=== PATIENT | female | born 1940 | race Caucasian/White ===

== ENCOUNTER → 2017-05-03 | Outpatient (CLI) | payer MEDICARE ==
--- NOTE | 2017-05-04 11:18 | ECHOF ---
Referral Reason:SOB R06.02 ,Cardiac murmur R01.1 MEASUREMENTS -------- HEIGHT: 157.5 cm WEIGHT: 61.2 kg BP: 152/66 RVIDd: 2.4 cm (< 3.3) IVSd: 1.2 cm (0.6 - 1.1) LVIDd: 4.4 cm (3.9 - 5.3) LVPWd: 1.2 cm (0.6 - 1.1) IVSs: 1.8 cm LVIDs: 3.1 cm LVPWs: 1.4 cm LA Diam: 3.5 cm (2.7 - 3.8) LAESV Index (A-L): 48.03 ml/m Ao Diam: 2.9 cm (2.0 - 3.7) AV Cusp: 2.0 cm (1.5 - 2.6) MV EXCURSION: 18.525 mm (> 18.000) MV EF SLOPE: 109 mm/s (70 - 150) EPSS: 0.8 cm MV E Loki: 1.62 m/s MV DecT: 175 ms MV A Loki: 0.91 m/s MV E/A Ratio: 1.77 AR PHT: 221 ms RAP: 5.00 mmHg RVSP: 56.37 mmHg FINDINGS -------- Sinus rhythm. This was a technically good study. The left ventricular size is normal. There is borderline concentric left ventricular hypertrophy. Overall left ventricular systolic function is normal with, an EF between 55 - 60 %. The right ventricle is normal in size. LA is severely dilated >40 ml/m2 The right atrium is normal in size. There is mild aortic valve sclerosis. There is moderate aortic regurgitation. The mitral valve leaflets are mildly thickened. Mild mitral annular calcification present. Severe mitral regurgitation is present. Mild tricuspid regurgitation present. There is severe pulmonary hypertension. The right ventricul ar systolic pressure, as measured by Doppler, is 56.37mmHg. Trace/mild (physiologic) pulmonic regurgitation. The aortic root size is normal. Normal inferior vena cava with normal inspiratory collapse consistent with estimated right atrial pre ssure of 5 mmHg. There is no pericardial effusion. CONCLUSIONS -------- 1. Sinus rhythm. 2. This was a technically good study. 3. The left ventricular size is normal. 4. There is borderline concentric left ventricular hypertrophy. 5. Overall left ventricular systolic function is normal with, an EF between 55 - 60 %. 6. The right ventricle is normal in size. 7. LA is severely dilated >40 ml/m2 8. The right atrium is normal in size. 9. There is mild aortic valve sclerosis. 10. There is moderate aortic regurgitation. 11. The mitral valve leaflets are mildly thickened. 12. Mild mitral annular calcification present. 13. Severe mitral regurgitation is present. 14. Mild tricuspid regurgitation present. 15. There is severe pulmonary hypertension. 16. The right ventricular systolic pressure, as measured by Doppler, is 56.37mmHg. 17. Trace/mild (physiologic) pulmonic regurgitation. 18. The aortic root size is normal. 19. Normal inferior vena cava with normal inspiratory collapse consistent with estimated right atrial pressure of 5 mmHg. 20. There is no pericardial effusion. CMO: Genna Vela RDCS
== END | disposition home or self-care (01) ==
LOC: RADECHMAIN 15:31
PROVIDERS: ATTEND Family Medicine
DX: I35.1 Nonrheumatic aortic (valve) insufficiency (principal); I34.0 Nonrheumatic mitral (valve) insufficiency; I07.1 Rheumatic tricuspid insufficiency; I27.20 Pulmonary hypertension, unspecified; I37.1 Nonrheumatic pulmonary valve insufficiency
CPT/HCPCS: 93306

== ENCOUNTER → 2017-05-04 | Outpatient (CLI) | payer MEDICARE ==
--- NOTE | 2017-05-04 15:57 | CT ---
EXAMINATION TYPE: CT chest wo con DATE OF EXAM: 05/04/2017 COMPARISON: NONE HISTORY: Shortness of breath x [address] DLP: 203.40 mGycm. Automated Exposure Control for Dose Reduction was Utilized. TECHNIQUE: CT scan of the thorax is performed without IV contrast. FINDINGS: Lack of intravenous contrast limits evaluation of the solid viscera and evaluation for medi astinal adenopathy. LUNGS: Moderate bilateral pleural effusions are seen, right slightly greater than left. Reticular lef t apical opacity and medial left upper lobe opacity likely relate to fibrosis. Pleural parenchymal sc arring is seen bilaterally. Mild centrilobular emphysematous changes are noted. Scattered areas of darnell bsegmental atelectasis are seen. Lingular scarring is noted. Focal pleural thickening along the left upper lobe on series 4 image 37 measures 1.3 cm and may be sequela of adjacent atelectasis. MEDIASTINUM: The right and left main pulmonary arteries are mildly enlarged measuring 2.5 cm, suggest ruby of underlying pulmonary arterial hypertension. Given the limitations of lack of intravenous contr ast there is no gross evidence of adenopathy although there are multiple nonenlarged mediastinal lymp h nodes present. Moderate three-vessel coronary artery calcifications are noted. There is mild cardio megaly. No pericardial effusion. Descending thoracic aorta is nonenlarged measuring 3.4 cm. OTHER: Mild multilevel degenerative changes of the thoracic spine are noted. IMPRESSION: 1. Moderate bilateral pleural effusions, right slightly greater than left as these are likely on the basis of congestive heart failure as the heart is mildly enlarged. 2. Left apical and medial upper lobe reticular opacities favored to represent a focal area of pulmona ry fibrosis/scarring, however pneumonitis of infectious or inflammatory etiology are also possible. 3. Enlargement of the right and left pulmonary arteries suggestive of underlying pulmonary arterial h ypertension. 4. Mild background centrilobular emphysematous changes.
== END | disposition home or self-care (01) ==
LOC: RADCTMAIN 15:30
PROVIDERS: ATTEND Family Medicine
DX: J90 Pleural effusion, not elsewhere classified (principal); R91.8 Other nonspecific abnormal finding of lung field; I51.7 Cardiomegaly; J43.9 Emphysema, unspecified; I77.89 Other specified disorders of arteries and arterioles; I28.8 Other diseases of pulmonary vessels
CPT/HCPCS: 71250

== ENCOUNTER 2017-05-31 10:57 | Day surgery (SDC) | payer MEDICARE ==
[2017-05-25 17:10] VITALS: BMI 23.8
[2017-05-31 11:48] LABS: Glucose,Whole Blood 135 mg/dL (75-99)
[2017-05-31 12:00] VITALS: RESP 20; TEMP 97.8
[2017-05-31] MEDS ORDERED: MIDAZOLAM 2 MG/2 ML VIAL ONE (12:08)
[2017-05-31] MEDS ORDERED: fentaNYL (PF) 50 MCG/ML 2 ML AMP ONE (12:08)
[2017-05-31] MEDS ORDERED: SODIUM CHLORIDE 0.9% 500 ML IV ONE (12:25)
[2017-05-31] MEDS: BENZOCAINE SPRAY 1 CAN MUCOUS MEM ONE ×2 (12:43→12:44)
[2017-05-31] MEDS ORDERED: fentaNYL (PF) 50 MCG/ML 2 ML AMP IVP ONE (12:44)
[2017-05-31] MEDS ORDERED: MIDAZOLAM 2 MG/2 ML VIAL IVP ONE ×2 (12:44)
--- NOTE | 2017-05-31 13:15 | ECHOT ---
TRANSESOPHAGEAL ECHOCARDIOGRAM DATE OF SERVICE: 05/31/2017. INDICATION: This is a pleasant 76-year-old female patient who sees Dr. Ramos in the office as an outpatient who was diagnosed with mitral regurgitation. The transesophageal echocardiogram is to evaluate the severity of the MR. COMPLICATION: None. LEVEL OF SEDATION: Moderate with sedation length of about 10 minutes. PROCEDURE DESCRIPTION: After obtaining an informed consent, explaining the procedure, benefits, risks, complications and alternatives, the patient was brought to the transesophageal echocardiogram suite. A pulse oximetry and heart rate monitors were attached to the patient prior to the procedure. The patient's throat was sprayed using lidocaine locally. Following that, the patient was turned into left lateral position. A bite guard was placed and the patient was then sedated with the above doses of Versed and fentanyl in divided doses. Following that, the transesophageal echocardiogram probe was advanced through the bite guard into the mid esophagus where 2-D echocardiogram images as well as color Doppler images of various cardiac structures were obtained. We evaluated the interatrial septum using 2-D echocardiogram, color Doppler, and contrast study. The procedure was completed. There were no complications. FINDINGS: The left ventricle appeared to be mildly dilated. Left ventricular systolic function is normal with EF around 50% to 55%. The right ventricle is of normal size and function. The left atrium is severely dilated. The left atrial appendage appeared to be free from any thrombus. The interatrial septum appeared to be intact without any evidence of shunt. The aortic valve is trileaflet valve with evidence of aortic regurgitation with central jet. The mitral valve is mildly thickened with evidence of severe mitral regurgitation also with a central jet. Normal tricuspid valve and pulmonic valve with only physiologic MR and physiologic . CONCLUSION: 1. Mildly dilated left ventricle with normal function with ejection fraction about 50% to 55%. 2. Severely dilated left atrium. 3. Severe mitral regurgitation. 4. Moderate aortic regurgitation. 5. Normal tricuspid valve and pulmonic valve. 6. Normal left atrial appendage. 7. Intact interatrial septum. 8. No evidence of pericardial effusion. MMODL / IJN: [id number] /
[2017-05-31 15:44] VITALS: BP 112/60; PULSE 70
== END 2017-05-31 15:00 | disposition home or self-care (01) ==
LOC: CATHCVL 10:57
PROVIDERS: ATTEND Internal Medicine Interventional Cardiology
DX: I08.0 Rheumatic disorders of both mitral and aortic valves (principal); I11.9 Hypertensive heart disease without heart failure; I27.20 Pulmonary hypertension, unspecified; I65.23 Occlusion and stenosis of bilateral carotid arteries; E11.9 Type 2 diabetes mellitus without complications; E78.5 Hyperlipidemia, unspecified; Z86.73 Personal history of transient ischemic attack (TIA), and cerebral infarction without residual deficits; Z85.3 Personal history of malignant neoplasm of breast; Z92.3 Personal history of irradiation; Z82.49 Family history of ischemic heart disease and other diseases of the circulatory system; Z79.84 Long term (current) use of oral hypoglycemic drugs; Z79.02 Long term (current) use of antithrombotics/antiplatelets; Z79.899 Other long term (current) drug therapy; Z88.2 Allergy status to sulfonamides; Z87.891 Personal history of nicotine dependence
CPT/HCPCS: 93312; 93320; 93325; J2250; J3010

== ENCOUNTER 2017-07-09 07:54 | Day surgery (SDC) | payer MEDICARE ==
[2017-07-05 12:46] VITALS: BMI 23.2
[~2017-07-09 07:54] MED LIST: ALPRAZolam 0.25 MG TAB PO PRN; ASPIRIN 325 MG TAB PO STA; SODIUM CHLORIDE 0.9% 1,000 ML in EMPTY BAG 1 BAG IV ONE
[2017-07-09 08:37] LABS: Basophils % (A) 0 %; Eosinophils # (A) 0.2 k/uL (0-0.7); Eosinophils % (A) 2 %; HCT 34.2 % (34.0-46.0); HGB 10.2 gm/dL (11.4-16.0); Hypochromasia Slight; Lymphocytes # (A) 2.2 k/uL (1.0-4.8); Lymphocytes % (A) 27 %; MCH 22.8 pg (25.0-35.0); MCHC 29.8 g/dL (31.0-37.0); MCV 76.8 fL (80.0-100.0); Mean Platelet Volume 6.8; Microcytosis Slight; Monocytes # (A) 0.6 k/uL (0-1.0); Monocytes % (A) 7 %; Neutrophils # (A) 5.1 k/uL (1.3-7.7); Neutrophils % (A) 62 %; Platelet Count 401 k/uL (150-450); RBC 4.45 m/uL (3.80-5.40); RDW 14.8 % (11.5-15.5); WBC 8.2 k/uL (3.8-10.6)
[2017-07-09 08:38] LABS: Glucose,Whole Blood 134 mg/dL (75-99)
[2017-07-09 08:57] LABS: Anion Gap 11 mmol/L; Blood Urea Nitrogen 30 mg/dL (7-17); Calcium 9.6 mg/dL (8.4-10.2); Carbon Dioxide 27 mmol/L (22-30); Chloride 106 mmol/L (98-107); Glucose 126 mg/dL (74-99); Potassium 4.3 mmol/L (3.5-5.1); Sodium 144 mmol/L (137-145)
[2017-07-09] MEDS ORDERED: LIDOCAINE 2% INJ 20 MG/ML (20 ML MDV) ONE (09:07)
[2017-07-09] MEDS ORDERED: MIDAZOLAM 2 MG/2 ML VIAL ONE (09:19)
[2017-07-09] MEDS ORDERED: fentaNYL (PF) 50 MCG/ML 2 ML AMP ONE (09:19)
[2017-07-09] MEDS ORDERED: MIDAZOLAM 2 MG/2 ML VIAL IVP ONE (09:25)
[2017-07-09] MEDS ORDERED: LIDOCAINE 2% INJ 20 MG/ML SQ ONE (09:28)
[2017-07-09] MEDS ORDERED: NITROGLYCERIN 1000MCG/10ML SYRINGE INTRAARTER ONE (09:50)
[2017-07-09 10:00] LABS: O2 Sat Blood Gas 70.8 %
[2017-07-09 10:01] LABS: O2 Sat Blood Gas 98.4 %
[2017-07-09 10:01] LABS: O2 Sat Blood Gas 72.3 %
[2017-07-09] MEDS ORDERED: NITROGLYCERIN OINT 1 INCH/GM PACKET TOPICAL ONE ×3 (10:01→10:02)
[2017-07-09] MEDS ORDERED: FUROSEMIDE 10 MG/ML 4 ML VIAL ONE (10:05)
[2017-07-09] MEDS ORDERED: FUROSEMIDE 10 MG/ML 4 ML VIAL IV ONE (10:05)
[2017-07-09] MEDS ORDERED: METOPROLOL TARTRATE 5 MG/5 ML VIAL IVP ONE ×2 (10:06→10:07)
[2017-07-09] MEDS ORDERED: IOHEXOL 350 MG/ML 125ML BOTTLE INJ ONE (10:14)
[2017-07-09] MEDS ORDERED: RX INFO: IV CONTRAST WAS GIVEN 1 EACH MISC MISCELLANE PRN (10:27)
[2017-07-09] MEDS ORDERED: ENALAPRILAT 1.25 MG/ML 1 ML VIAL ONE (10:33)
[2017-07-09] MEDS ORDERED: ENALAPRILAT 1.25 MG/ML 1 ML VIAL IVP STA (10:35)
[2017-07-09] MEDS: SODIUM CHLORIDE 0.9% 1,000 ML IV SCH (12:45)
--- NOTE | 2017-07-09 15:07 | P.GSCN ---
<Bernadette Cochran - Last Filed: 07/09/17 14:46> History of Present Illness Consult date: 07/09/17 Reason for Consult: Coronary artery disease, severe mitral regurgitation, surgical recommendations. 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 Graves has been followed by Dr. Fisher for severe mitral valve regurgitation. Apparently she has had increasing shortness of breath, even at rest but denies chest pain, syncope, claudication. She had transesophageal echocardiogram on 05/31/2017 which demonstrated normal LV function with an ejection fraction of 50-55%, severe mitral regurgitation, and moderate aortic regurgitation. She was recommended undergo heart catheterization which was completed this morning and which demonstrated severe multivessel coronary artery disease. Dr. Alvarez from cardiothoracic surgery was consulted regarding surgical recommendations. Review of Systems 14 point review systems was completed and was negative except as noted in the HPI. Past Medical History Past Medical History: Coronary Artery Disease (CAD), Cancer, CVA/TIA, Diabetes Mellitus, Hyperlipidemia, Hypertension Additional Past Medical History / Comment(s): shortness of breath,. hx: jerry breast cancer, lymphedema lt arm-. pt request rt arm to be used for blood draws and b/p monitoring History of Any Multi-Drug Resistant Organisms: None Reported Past Surgical History: Breast Surgery, Cholecystectomy Additional Past Surgical History / Comment(s): lt mastectomy with reconstruction with abdominal flap Past Anesthesia/Blood Transfusion Reactions: No Reported Reaction Past Psychological History: No Psychological Hx Reported Smoking Status: Former smoker Past Alcohol Use History: Occasional Additional Past Alcohol Use History / Comment(s): smoked 15 years 2 ppd quit 30 years ago Past Drug Use History: None Reported - Past Family History Father Family Medical History: Cancer Additional Family Medical History / Comment(s): colon cancer Daughter(s) Family Medical History: Cancer Additional Family Medical History / Comment(s): cervical cancer- Sister(s) Family Medical History: Coronary Artery Disease (CAD) Brother(s) Family Medical History: Coronary Artery Disease (CAD) Medications and Allergies Home Medications Medication Instructions Recorded Confirmed Type Losartan Potassium 100 mg PO DAILY 12/12/15 07/09/17 History metFORMIN HCL 1,000 mg PO BID 12/12/15 07/09/17 History Acetaminophen Tab [Tylenol] 650 mg PO Q4HR PRN #0 tab 12/18/15 07/05/17 Rx Clopidogrel [Plavix] 75 mg PO DAILY #30 tab 12/18/15 07/09/17 Rx Aspirin [Aspirin EC] 2 tab PO DAILY PRN 05/25/17 07/09/17 History Furosemide [Lasix] 40 mg PO DAILY 05/25/17 07/09/17 History Pravastatin Sodium [Pravachol] 10 mg PO HS 05/25/17 07/09/17 History Cholecalciferol (Vitamin D3) 2,000 unit PO DAILY 07/05/17 07/09/17 History [Vitamin D3] Co Q 10 (Unknown Dose) 1 tab PO DAILY 07/05/17 07/09/17 History Allergies Allergy/AdvReac Type Severity Reaction Status Date / Time Sulfa (Sulfonamide Allergy Unknown Verified 07/05/17 12:35 Antibiotics) lisinopril AdvReac Severe Swelling Verified 07/05/17 12:35 rosuvastatin [From Crestor] AdvReac Severe Unknown Verified 07/05/17 12:35 Surgical - Exam Vital Signs Temp Pulse Resp BP Pulse Ox 97.8 F 84 20 172/74 95 07/09/17 08:15 07/09/17 08:15 07/09/17 08:15 07/09/17 08:15 07/09/17 08:15 - General well developed, well nourished, no distress, no pain - Eyes PERRL, normal ocular movement - ENT no hearing loss, dentures - Neck no masses, no bruits, trachea midline - Respiratory Lungs sounds clear bilaterally. Respirations even, nonlabored. Currently on room air with oxygen saturation 95%. - Cardiovascular S1 and S2 present. Regular rate and rhythm, sinus rhythm on telemetry. Systolic murmur present. Palpable peripheral pulses bilaterally. No edema present. No varicosities noted. - Abdomen Abdomen: soft, non tender, bowel sounds - Genitourinary Deferred - Rectum Deferred - Integumentary Right groin cath site soft, nontender. no rash, no growths, no abnormal pigmentation - Neurologic normal coordination, normal sensation - Psychiatric oriented to time, oriented to person, oriented to place, speech is normal, memory intact Results - Labs 07/09/17 08:25 07/09/17 08:25 Abnormal Lab Results - Last 24 Hours (Table) 07/09/17 07/09/17 07/09/17 Range/Units 08:25 08:25 08:26 Hgb 10.2 L (11.4-16.0) gm/dL MCV 76.8 L (80.0-100.0) fL MCH 22.8 L (25.0-35.0) pg MCHC 29.8 L (31.0-37.0) g/dL BUN 30 H (7-17) mg/dL Glucose 126 H (74-99) mg/dL POC Glucose (mg/dL) 134 H (75-99) mg/dL Diabetes panel 07/09/17 Range/Units 08:25 Sodium 144 (137-145) mmol/L Potassium 4.3 (3.5-5.1) mmol/L Chloride 106 (98-107) mmol/L Carbon Dioxide 27 (22-30) mmol/L BUN 30 H (7-17) mg/dL Creatinine 0.82 (0.52-1.04) mg/dL Glucose 126 H (74-99) mg/dL Calcium 9.6 (8.4-10.2) mg/dL Calcium panel 07/09/17 Range/Units 08:25 Calcium 9.6 (8.4-10.2) mg/dL Pituitary panel 07/09/17 Range/Units 08:25 Sodium 144 (137-145) mmol/L Potassium 4.3 (3.5-5.1) mmol/L Chloride 106 (98-107) mmol/L Carbon Dioxide 27 (22-30) mmol/L BUN 30 H (7-17) mg/dL Creatinine 0.82 (0.52-1.04) mg/dL Glucose 126 H (74-99) mg/dL Calcium 9.6 (8.4-10.2) mg/dL Adrenal panel 07/09/17 Range/Units 08:25 Sodium 144 (137-145) mmol/L Potassium 4.3 (3.5-5.1) mmol/L Chloride 106 (98-107) mmol/L Carbon Dioxide 27 (22-30) mmol/L BUN 30 H (7-17) mg/dL Creatinine 0.82 (0.52-1.04) mg/dL Glucose 126 H (74-99) mg/dL Calcium 9.6 (8.4-10.2) mg/dL - Imaging Additional studies: Cardiac catheterization films and transesophageal echocardiogram were reviewed Assessment and Plan (1) Hypertension Current Visit: Yes Status: Chronic Code(s): I10 - ESSENTIAL (PRIMARY) HYPERTENSION SNOMED Code(s): 18022249 (2) Family history of early CAD Current Visit: Yes Status: Chronic Code(s): Z82.49 - FAMILY HX OF ISCHEM HEART DIS AND OTH DIS OF THE CIRC SYS SNOMED Code(s): 529213328 (3) History of breast cancer Current Visit: No Status: Resolved Code(s): Z85.3 - PERSONAL HISTORY OF MALIGNANT NEOPLASM OF BREAST SNOMED Code(s): 737001082 (4) Tobacco dependence in remission Current Visit: No Status: Resolved Code(s): F17.201 - NICOTINE DEPENDENCE, UNSPECIFIED, IN REMISSION SNOMED Code(s): 946525164 (5) Severe mitral regurgitation Current Visit: Yes Status: Chronic Code(s): I34.0 - NONRHEUMATIC MITRAL ( VALVE) INSUFFICIENCY SNOMED Code(s): 81595581 (6) Carotid stenosis Current Visit: Yes Status: Chronic Code(s): I65.29 - OCCLUSION AND STENOSIS OF UNSPECIFIED CAROTID ARTERY SNOMED Code(s): 29527874 (7) Dyslipidemia Current Visit: Yes Status: Chronic Code(s): E78.5 - HYPERLIPIDEMIA, UNSPECIFIED SNOMED Code(s): 738286002 Plan: Patient was seen and examined at the bedside. Chart /diagnostics reviewed. Cardiac catheterization films and transesophageal echocardiogram films were reviewed with Dr. Alvarez. Preoperative testing initiated. Carotid duplex completed at Dr. Benson's office reviewed, demonstrates right ICA stenosis of 50-79% and left ICA stenosis of 16-49%. Preoperative teaching initiated. All questions answered. Once preoperative testing completed we will review, and discuss timing of surgery with the patient and her family. The plan will be for mitral valve repair, possible replacement with coronary artery bypass 3-4 vessels. Patient will need to be off Plavix for 5 days prior to surgery. This was discussed with the patient and her , and they are in agreement. Thank you Dr. Velazco for this consult. We look forward to working with you in the care of your patient. Time with Patient: Greater than 30 <Alexandra Alvarez - Last Filed: 07/09/17 16:25> Surgical - Exam Vital Signs Temp Pulse Resp BP Pulse Ox 97.8 F 84 20 172/74 95 07/09/17 08:15 07/09/17 08:15 07/09/17 08:15 07/09/17 08:15 07/09/17 08:15 Results - Labs 07/09/17 08:25 07/09/17 08:25 Abnormal Lab Results - Last 24 Hours (Table) 07/09/17 07/09/17 07/09/17 Range/Units 08:25 08:25 08:26 Hgb 10.2 L (11.4-16.0) gm/dL MCV 76.8 L (80.0-100.0) fL MCH 22.8 L (25.0-35.0) pg MCHC 29.8 L (31.0-37.0) g/dL BUN 30 H (7-17) mg/dL Glucose 126 H (74-99) mg/dL POC Glucose (mg/dL) 134 H (75-99) mg/dL Diabetes panel 07/09/17 Range/Units 08:25 Sodium 144 (137-145) mmol/L Potassium 4.3 (3.5-5.1) mmol/L Chloride 106 (98-107) mmol/L Carbon Dioxide 27 (22-30) mmol/L BUN 30 H (7-17) mg/dL Creatinine 0.82 (0.52-1.04) mg/dL Glucose 126 H (74-99) mg/dL Calcium 9.6 (8.4-10.2) mg/dL Calcium panel 07/09/17 Range/Units 08:25 Calcium 9.6 (8.4-10.2) mg/dL Pituitary panel 07/09/17 Range/Units 08:25 Sodium 144 (137-145) mmol/L Potassium 4.3 (3.5-5.1) mmol/L Chloride 106 (98-107) mmol/L Carbon Dioxide 27 (22-30) mmol/L BUN 30 H (7-17) mg/dL Creatinine 0.82 (0.52-1.04) mg/dL Glucose 126 H (74-99) mg/dL Calcium 9.6 (8.4-10.2) mg/dL Adrenal panel 07/09/17 Range/Units 08:25 Sodium 144 (137-145) mmol/L Potassium 4.3 (3.5-5.1) mmol/L Chloride 106 (98-107) mmol/L Carbon Dioxide 27 (22-30) mmol/L BUN 30 H (7-17) mg/dL Creatinine 0.82 (0.52-1.04) mg/dL Glucose 126 H (74-99) mg/dL Calcium 9.6 (8.4-10.2) mg/dL Assessment and Plan Plan: Patient seen and examined. Cath, KRISTINA and prior CT Chest reviewed. Patient S/P radiation to chest for bilateral breast CA with oneal encompassing the mediastinum judging from the skin tattoo. She has partially calcified ascending aorta and very calcified proximal coronaries. She might also have some post- radiation RADHA changes. I am not sure if her mitral valve disease is radiation induced. I believe the aorta is clampable despite the ascending aortic calcifications however patient is certainly at higher risk in view of potential heart and lung radiation induced diseases and changes. ALEXANDRA ALVAREZ MD
[2017-07-09 16:37] LABS: Glucose,Whole Blood 108 mg/dL (75-99)
[2017-07-09] MEDS ORDERED: ASPIRIN 325 MG TAB PO PRN (18:19)
[2017-07-09] MEDS ORDERED: ACETAMINOPHEN TAB 325 MG TAB PO PRN (18:19)
[2017-07-09 19:33] LABS: INR 1.1 (<1.2); Prothrombin Time 10.6 sec (9.0-12.0)
[2017-07-09 20:59] LABS: Glucose,Whole Blood 223 mg/dL (75-99)
[2017-07-09] MEDS ORDERED: PRAVASTATIN SODIUM 20 MG TAB PO SCH (21:00)
[2017-07-09 23:41] LABS: Appearance,Urine Cloudy (Clear); Bacteria,Urine Rare /hpf; Bilirubin,Urine Negative (Negative); Blood,Urine Moderate (Negative); Color,Urine Light Yellow; Glucose,Urine (UA) Negative (Negative); Ketones,Urine Negative (Negative); Leukocyte Esterase,Urine Large (Negative); Mucus,Urine Rare /hpf; PH, Urine 5.5 (5.0-8.0); Protein,Urine 1+ (Negative); RBC,Urine 162 /hpf (0-5); Specific Gravity,Urine 1.023 (1.001-1.035); Squamous Epithelial Cell,Urine 2 /hpf (0-4); Urobilinogen,Urine <2.0 mg/dL (<2.0); WBC,Urine 82 /hpf (0-5)
[2017-07-10] MEDS: SODIUM CHLORIDE 0.9% 1,000 ML IV SCH ×2 (01:49→13:58)
[2017-07-10 02:07] LABS: Hepatitis A Antibody IgM Non-Reactive (Non-Reactive); Hepatitis B Core IgM Non-Reactive (Non-Reactive)
[2017-07-10 05:56] LABS: Basophils % (A) 0 %; Eosinophils # (A) 0.2 k/uL (0-0.7); Eosinophils % (A) 3 %; HCT 31.3 % (34.0-46.0); Hypochromasia Slight; Lymphocytes % (A) 29 %; MCH 23.8 pg (25.0-35.0); MCHC 31.9 g/dL (31.0-37.0); MCV 74.8 fL (80.0-100.0); Mean Platelet Volume 6.7; Microcytosis Slight; Monocytes # (A) 0.4 k/uL (0-1.0); Monocytes % (A) 6 %; Neutrophils % (A) 60 %; Platelet Count 382 k/uL (150-450); RBC 4.18 m/uL (3.80-5.40); RDW 14.9 % (11.5-15.5); WBC 6.7 k/uL (3.8-10.6)
[2017-07-10 06:00] LABS: Hemoglobin A1C 7.6 % (4.0-6.0)
[2017-07-10 06:07] LABS: Glucose,Whole Blood 136 mg/dL (75-99)
[2017-07-10 06:22] LABS: ALT 25 U/L (9-52); AST 20 U/L (14-36); Albumin 3.5 g/dL (3.5-5.0); Alkaline Phosphatase 22 U/L (38-126); Anion Gap 9 mmol/L; Blood Urea Nitrogen 27 mg/dL (7-17); Calcium 9.3 mg/dL (8.4-10.2); Carbon Dioxide 27 mmol/L (22-30); Chloride 103 mmol/L (98-107); Glucose 112 mg/dL (74-99); Potassium 3.9 mmol/L (3.5-5.1); Sodium 139 mmol/L (137-145); Total Bilirubin 0.5 mg/dL (0.2-1.3)
--- NOTE | 2017-07-10 07:22 | XR ---
EXAMINATION TYPE: XR chest 2V DATE OF EXAM: 07/10/2017 COMPARISON: 12/16/2015 TECHNIQUE: PA and lateral views submitted. HISTORY: Preop FINDINGS: The lungs are clear and there is no pneumothorax, pleural effusion, or focal pneumonia. Hyperinflati on compatible COPD. Prominence of the pulmonary arteries likely the basis of pulmonary arterial hyper tension. Surgical clips overlying right chest. Atherosclerotic change aorta. Degenerative changes spi ne. Coarsened interstitium. IMPRESSION: 1. No acute process. Stable mild prominence of interstitium was may reflect underlying mild chronic i nterstitial lung disease.
[2017-07-10] MEDS ORDERED: FUROSEMIDE 40 MG TAB PO SCH (09:00)
[2017-07-10] MEDS ORDERED: CO Q PO SCH (09:00)
[2017-07-10] MEDS ORDERED: LOSARTAN 50 MG TAB PO SCH (09:00)
[2017-07-10] MEDS ORDERED: ASPIRIN 325 MG TAB PO SCH (09:00)
[2017-07-10] MEDS ORDERED: CHOLECALCIFEROL 1,000 UNIT TAB PO SCH (09:00)
[2017-07-10 10:06] VITALS: TEMP 97.4
--- NOTE | 2017-07-10 11:39 | P.CNPUL ---
History of Present Illness Consult date: 07/10/17 Chief complaint: Preop pulmonary evaluation, mitral regurgitation History of present illness: A very pleasant 76-year-old female patient with known known history of lung disease such as asthma or emphysema or pulmonary fibrosis, a nonsmoker, was being considered for valvular heart surgery and for that reason a homemaker consultation was requested. The patient has history of exertional dyspnea. A KRISTINA was done on 05/31/2017 and showed normal LV function and ejection fraction of 50-55% along with severe mitral regurgitation, moderate aortic regurgitation. A cardiac catheterization was done and showed also multivessel coronary artery disease. The patient was seen by cardiothoracic surgery and the plan is to undergo a valve replacement and bypass surgery sometime next week. The patient was on Plavix and Plavix was taken off and this will be done on an elective basis. Patient is doing well. A bedside spirometry was done and the patient's FEV1 is no other of 97% of predicted. Room air pulse ox is above 97%. The patient has had previous radiation therapy to her progress regarding history of breast cancer. A CAT scan of the chest was obtained on and this was a CTA scan of the chest without contrast and it showed moderate bilateral pleural effusion related to her history of CHF and valvular heart disease. The left apical area was showing some limited fibrosis and the patient had enlargement of the pulmonary artery suggestive underlying pulmonary artery of hypertension. Overall performance status is good. Exertional dyspnea is related to valvular heart disease. Hemoglobin stable at 10.0. Concern of an underlying urine checked infection based on the abnormal UA however the patient is symptomatically and we have made recommendations to repeat the urinalysis. She is afebrile for now. Review of Systems Constitutional: Denies chills, Denies fever Eyes: denies blurred vision, denies bulging eye, denies decreased vision Ears: deny: decreased hearing, ear discharge, earache Ears, nose, mouth and throat: Denies headache, Denies sore throat Cardiovascular: Reports decreased exercise tolerance, Reports dyspnea on exertion Respiratory: Reports dyspnea Gastrointestinal: Denies abdominal pain, Denies diarrhea, Denies nausea, Denies vomiting Genitourinary: Denies dysuria, Denies hematuria Musculoskeletal: Denies myalgias Musculoskeletal: absent: ankle pain, ankle stiffness, ankle swelling Integumentary: Denies pruritus, Denies rash Neurological: Denies numbness, Denies weakness Psychiatric: Denies anxiety, Denies depression Endocrine: Denies fatigue, Denies weight change Past Medical History Past Medical History: Coronary Artery Disease (CAD), Cancer, CVA/TIA, Diabetes Mellitus, Hyperlipidemia, Hypertension Additional Past Medical History / Comment(s): Coronary artery disease, mitral valve regurgitation, diabetes mellitus, previous history of TIA, hypertension, hyperlipidemia, lymphedema of the left upper extremity related to a previous breast surgery, breast cancer with lt mastectomies History of Any Multi-Drug Resistant Organisms: None Reported Past Surgical History: Breast Surgery, Cholecystectomy Additional Past Surgical History / Comment(s): lt mastectomy with reconstruction with abdominal flap Past Anesthesia/Blood Transfusion Reactions: No Reported Reaction Past Psychological History: No Psychological Hx Reported Smoking Status: Former smoker Past Alcohol Use History: Occasional Additional Past Alcohol Use History / Comment(s): smoked 15 years 2 ppd quit 30 years ago Past Drug Use History: None Reported - Past Family History Father Family Medical History: Cancer Additional Family Medical History / Comment(s): colon cancer Daughter(s) Family Medical History: Cancer Additional Family Medical History / Comment(s): cervical cancer- Sister(s) Family Medical History: Coronary Artery Disease (CAD) Brother(s) Family Medical History: Coronary Artery Disease (CAD) Medications and Allergies Home Medications Medication Instructions Recorded Confirmed Type Losartan Potassium 100 mg PO DAILY 12/12/15 07/09/17 History metFORMIN HCL 1,000 mg PO BID 12/12/15 07/09/17 History Acetaminophen Tab [Tylenol] 650 mg PO Q4HR PRN #0 tab 12/18/15 07/05/17 Rx Clopidogrel [Plavix] 75 mg PO DAILY #30 tab 12/18/15 07/09/17 Rx Aspirin [Aspirin EC] 2 tab PO DAILY PRN 05/25/17 07/09/17 History Furosemide [Lasix] 40 mg PO DAILY 05/25/17 07/09/17 History Pravastatin Sodium [Pravachol] 10 mg PO HS 05/25/17 07/09/17 History Cholecalciferol (Vitamin D3) 2,000 unit PO DAILY 07/05/17 07/09/17 History [Vitamin D3] Co Q 10 (Unknown Dose) 1 tab PO DAILY 07/05/17 07/09/17 History Allergies Allergy/AdvReac Type Severity Reaction Status Date / Time Sulfa (Sulfonamide Allergy Unknown Verified 07/05/17 12:35 Antibiotics) lisinopril AdvReac Severe Swelling Verified 07/05/17 12:35 rosuvastatin [From Crestor] AdvReac Severe Unknown Verified 07/05/17 12:35 Physical Exam Vitals: Vital Signs Temp Pulse Pulse Resp BP Pulse Ox 07/10/17 08:00 97.4 F L 70 17 108/52 97 07/10/17 04:00 72 16 135/64 98 07/10/17 00:00 97.2 F L 64 16 130/59 98 07/09/17 20:00 97.2 F L 64 16 164/71 98 07/09/17 15:41 63 16 07/09/17 15:32 97.3 F L 63 16 153/63 95 07/09/17 14:12 59 L 120/57 07/09/17 13:12 63 135/63 07/09/17 12:12 129/61 07/09/17 11:50 16 07/09/17 11:42 98.2 F 62 16 140/64 95 Intake and Output 07/09/17 07/10/17 07/10/17 22:59 06:59 14:59 Intake Total 280 Output Total 300 Balance -300 280 Intake: Oral 280 Output: Urine 300 Other: # Voids 1 1 Weight 54.7 kg - General well developed, well nourished, no distress, no pain - Eyes PERRL, normal ocular movement - ENT no hearing loss, dentures - Neck no masses, no bruits, trachea midline - Respiratory Lungs sounds clear bilaterally. Respirations even, nonlabored. Currently on room air with oxygen saturation 95%. - Cardiovascular S1 and S2 present. Regular rate and rhythm, sinus rhythm on telemetry. Systolic murmur present. Palpable peripheral pulses bilaterally. No edema present. No varicosities noted. - Abdomen Abdomen: soft, non tender, bowel sounds - Genitourinary Deferred - Rectum Deferred - Integumentary Right groin cath site soft, nontender. no rash, no growths, no abnormal pigmentation - Neurologic normal coordination, normal sensation - Psychiatric oriented to time, oriented to person, oriented to place, speech is normal, memory intact Results - Laboratory Findings CBC and BMP: 07/10/17 05:26 03/06/18 05:26 PT/INR, D-dimer PT 10.6 sec (9.0-12.0) 07/09/17 18:37 INR 1.1 (<1.2) 07/09/17 18:37 Abnormal lab findings: Abnormal Labs 07/09/17 07/09/17 07/09/17 08:25 08:25 08:26 Hgb 10.2 L Hct MCV 76.8 L MCH 22.8 L MCHC 29.8 L BUN 30 H Glucose 126 H POC Glucose (mg/dL) 134 H Hemoglobin A1c Alkaline Phosphatase Total Protein HDL Cholesterol Urine Appearance Urine Protein Urine Blood Urine Nitrite Ur Leukocyte Esterase Urine RBC Urine WBC Urine WBC Clumps Urine Bacteria Urine Mucus 07/09/17 07/09/17 07/09/17 16:33 18:37 18:37 Hgb Hct MCV MCH MCHC BUN Glucose POC Glucose (mg/dL) 108 H Hemoglobin A1c 7.6 H Alkaline Phosphatase Total Protein HDL Cholesterol 38 L Urine Appearance Urine Protein Urine Blood Urine Nitrite Ur Leukocyte Esterase Urine RBC Urine WBC Urine WBC Clumps Urine Bacteria Urine Mucus 07/09/17 07/09/17 07/10/17 20:50 23:25 05:26 Hgb Hct MCV MCH MCHC BUN 27 H Glucose 112 H POC Glucose (mg/dL) 223 H Hemoglobin A1c Alkaline Phosphatase 22 L Total Protein 6.0 L HDL Cholesterol Urine Appearance Cloudy H Urine Protein 1+ H Urine Blood Moderate H Urine Nitrite Positive H Ur Leukocyte Esterase Large H Urine RBC 162 H Urine WBC 82 H Urine WBC Clumps Occasional H Urine Bacteria Rare H Urine Mucus Rare H 07/10/17 07/10/17 05:26 06:05 Hgb 10.0 L Hct 31.3 L MCV 74.8 L MCH 23.8 L MCHC BUN Glucose POC Glucose (mg/dL) 136 H Hemoglobin A1c Alkaline Phosphatase Total Protein HDL Cholesterol Urine Appearance Urine Protein Urine Blood Urine Nitrite Ur Leukocyte Esterase Urine RBC Urine WBC Urine WBC Clumps Urine Bacteria Urine Mucus - Diagnostic Findings Chest x-ray: image reviewed Assessment and Plan Plan: Assessment 1 severe mitral regurgitation along with multivessel coronary artery disease, awaiting valvular replacement/repair and coronary artery bypass surgery. This will be done elective patient as the patient is currently off Plavix 2 chronic exertional dyspnea secondary to above 3 breast cancer with previous left mastectomy followed by radiation therapy and the patient is a lymphedema involving left upper extremity 4 diabetes mellitus 5 hypertension 6 hyperlipidemia 7 remote history of smoking quit more than 30 years ago 8 suspected pulmonary arterial hypertension probably later to her underlying valvular heart disease Carotid artery stenosis as the patient has a 57 9% stenosis involving the right internal carotid artery and 16-49% stenosis on the left. Plan No pulmonary contraindication for the surgery to be undertaken. Do not foresee any major pulmonary complications specially the patient's spirometry is within normal limits. Chest x-ray showing some interstitial edema related to CHF and valvular heart disease. There may be an underlying pulmonary arterial hypertension addition related to the valvular heart disease. Encourage use of incentive spirometer. Will be involved in the patient's care and attempt to any pulmonary needs in with diminished mechanical ventilator. We'll continue to follow.
[2017-07-10 12:14] VITALS: BP 136/63; PULSE 62; RESP 18
--- NOTE | 2017-07-10 15:37 | P.PN ---
Subjective Progress Note Date: 07/10/17 Discharge note This is a pleasant 76-year-old female with severe mitral regurgitation , symptomatic, known carotid atherosclerosis status post left carotid endarterectomy, prior CVA, diabetes, hypertension, or Motrin tobacco use, hyperlipidemia, family history of premature coronary artery disease, breast cancer with history of prior radiotherapy, chronic kidney disease stage III who was admitted to the hospital to undergo cardiac catheterization, cardiac catheterization was performed by Dr. Velazco yesterday and revealed diffuse disease in the left main, 90% RCA, 100% circumflex, 60% proximal LAD with a questionable diagonal lesion, ejection fraction 50%. Cardiothoracic surgery was consulted to see the patient, plan is for mitral valve repair, possible replacement, and coronary artery bypass of 3-4 vessels. Patient will need to be off of her Plavix for 5 days prior to surgery. Patient was seen and examined this morning, denies any chest pain, her breathing overall has been stable. Blood pressure 132/63 with a heart rate in the 60s, she is afebrile, 94 % on room air. White blood cell count 6.7, hemoglobin 10.0, sodium 139, potassium 3.9, BUN 27, creatinine 0.9. Magnesium 1.9, positive UTI. Will add a small dose of beta renetta to her medication regime and increase her statin to 20 mg. She may be able to be discharged home today. Objective - Vital Signs Vital signs: Vital Signs Temp 97.4 F L 07/10/17 08:00 Pulse 62 07/10/17 12:00 Resp 18 07/10/17 12:00 BP 136/63 07/10/17 12:00 Pulse Ox 94 L 07/10/17 12:00 Intake & Output 07/09/17 07/10/17 07/10/17 18:59 06:59 18:59 Intake Total 565 500 Output Total 400 Balance 165 500 Weight 57.606 kg 54.7 kg Intake: IV 250 Intake, IV Titration 75 Amount Sodium Chloride 0.9% 1, 75 000 ml @ 75 mls/hr IV . [id number] [facility] Rx#:[id number] Oral 240 500 Output: Urine 400 Other: # Voids 2 1 1 - Exam PHYSICAL EXAMINATION: HEENT: Head is atraumatic, normocephalic. Pupils equal, round. Neck is supple. There is no elevated jugular venous pressure. HEART EXAMINATION: Heart S1 S2 1 holosystolic murmur is heard. CHEST EXAMINATION:[ Lungs reveal decreased air exchange throughout ABDOMEN: Soft, nontender. Bowel sounds are heard. No organomegaly noted. Right groin soft no evidence of any hematoma. EXTREMITIES: 2+ peripheral pulses with no evidence of peripheral edema and no calf tenderness noted. NEUROLOGIC patient is awake, alert and oriented -3. . - Labs CBC & Chem 7: 07/10/17 05:26 07/10/17 05:26 Labs: Abnormal Lab Results - Last 24 Hours (Table) 07/09/17 07/09/17 07/09/17 Range/Units 16:33 18:37 18:37 Hgb (11.4-16.0) gm/dL Hct (34.0-46.0) % MCV (80.0-100.0) fL MCH (25.0-35.0) pg BUN (7-17) mg/dL Glucose (74-99) mg/dL POC Glucose (mg/dL) 108 H (75-99) mg/dL Hemoglobin A1c 7.6 H (4.0-6.0) % Alkaline Phosphatase (38-126) U/L Total Protein (6.3-8.2) g/dL HDL Cholesterol 38 L (40-60) mg/dL Urine Appearance (Clear) Urine Protein (Negative) Urine Blood (Negative) Urine Nitrite (Negative) Ur Leukocyte Esterase (Negative) Urine RBC (0-5) /hpf Urine WBC (0-5) /hpf Urine WBC Clumps (None) /hpf Urine Bacteria (None) /hpf Urine Mucus (None) /hpf 07/09/17 07/09/17 07/10/17 Range/Units 20:50 23:25 05:26 Hgb (11.4-16.0) gm/dL Hct (34.0-46.0) % MCV (80.0-100.0) fL MCH (25.0-35.0) pg BUN 27 H (7-17) mg/dL Glucose 112 H (74-99) mg/dL POC Glucose (mg/dL) 223 H (75-99) mg/dL Hemoglobin A1c (4.0-6.0) % Alkaline Phosphatase 22 L (38-126) U/L Total Protein 6.0 L (6.3-8.2) g/dL HDL Cholesterol (40-60) mg/dL Urine Appearance Cloudy H (Clear) Urine Protein 1+ H (Negative) Urine Blood Moderate H (Negative) Urine Nitrite Positive H (Negative) Ur Leukocyte Esterase Large H (Negative) Urine RBC 162 H (0-5) /hpf Urine WBC 82 H (0-5) /hpf Urine WBC Clumps Occasional H (None) /hpf Urine Bacteria Rare H (None) /hpf Urine Mucus Rare H (None) /hpf 07/10/17 07/10/17 Range/Units 05:26 06:05 Hgb 10.0 L (11.4-16.0) gm/dL Hct 31.3 L (34.0-46.0) % MCV 74.8 L (80.0-100.0) fL MCH 23.8 L (25.0-35.0) pg BUN (7-17) mg/dL Glucose (74-99) mg/dL POC Glucose (mg/dL) 136 H (75-99) mg/dL Hemoglobin A1c (4.0-6.0) % Alkaline Phosphatase (38-126) U/L Total Protein (6.3-8.2) g/dL HDL Cholesterol (40-60) mg/dL Urine Appearance (Clear) Urine Protein (Negative) Urine Blood (Negative) Urine Nitrite (Negative) Ur Leukocyte Esterase (Negative) Urine RBC (0-5) /hpf Urine WBC (0-5) /hpf Urine WBC Clumps (None) /hpf Urine Bacteria (None) /hpf Urine Mucus (None) /hpf Microbiology - Last 24 Hours (Table) 07/09/17 18:00 Urine Culture - Preliminary Urine,Ureter Assessment and Plan Plan: Assessment 1 severe mitral regurgitation along with multivessel coronary artery disease, awaiting valvular replacement/repair and coronary artery bypass surgery. This will be done elective patient as the patient is currently off Plavix 2 chronic exertional dyspnea secondary to above 3 breast cancer with previous left mastectomy followed by radiation therapy and the patient is a lymphedema involving left upper extremity 4 diabetes mellitus 5 hypertension 6 hyperlipidemia 7 remote history of smoking quit more than 30 years ago 8 suspected pulmonary arterial hypertension probably later to her underlying valvular heart disease 9 Carotid artery stenosis as the patient has a 57 9% stenosis involving the right internal carotid artery and 16-49% stenosis on the left. We will start the patient on a low-dose beta renetta. Increase statin to 20 mg daily. She may be able to be discharged home today from cardiology's perspective. Surgery will be scheduled as an outpatient, she will require being off of her Plavix for a minimum of 5 days. We will continue aspirin 325 mg daily, Lasix 40 mg daily, Cozaar 100 mg daily, increase pravastatin to 20 mg daily, add Lopressor 25 mg daily to her medication regime. Discharged home with sublingual nitroglycerin. We will also treat the patient with Cipro for her UTI. DNP note has been reviewed, I agree with a documented findings and plan of care. Patient was seen and examined.
[2017-07-10] MEDS ORDERED: METOPROLOL SUCCINATE (ER) 25 MG TAB.ER.24H PO SCH (15:45)
[2017-07-10] MEDS ORDERED: CIPROFLOXACIN HCL 250 MG TAB PO SCH (21:00)
[2017-07-10] MEDS ORDERED: PRAVASTATIN SODIUM 20 MG TAB PO SCH (21:00)
--- NOTE | 2017-07-11 17:25 | P.PCN ---
Date of Procedure: 07/09/17 Preoperative Diagnosis: Severe mitral regurgitation, CHF and possible CAD Postoperative Diagnosis: Severe mitral regurgitation, severe triple-vessel disease Procedure(s) Performed: Right and left heart catheterization Description of Procedure: HISTORY: This is a 76-year-old female with history of previous TIA, peripheral vascular disease and symptoms of shortness of breath and CHF. Echocardiogram and KRISTINA showed evidence of severe mitral regurgitation. Patient is advised to have a right and left heart catheterization to assess mitral regurgitation and to rule out underlying ischemic heart disease. CONSENT:I have discussed the risks, benefits and alternative therapies for the above-mentioned procedure and for both sedation/analgesia as well as necessary blood product administration, if indicated, as they pertain to this patient. The patient has indicated understanding and acceptance of the risks and procedures discussed. PROCEDURE: Patient was brought to the lab in a fasting state. Patient was given conscious sedation. She was prepped and draped in the usual fashion . Right heart catheterization. The right groin is infiltrated with lidocaine and right femoral vein was entered using Seldinger technique. A 7-Bolivian catheter was left in place and right heart catheterization was performed using Mitchell-Radha catheter. Patient tolerated the procedure well. Hemostasis was obtained at the end of the procedure with manual compression. Left heart catheterization: The right femoral artery was entered using Seldinger technique. A 6-Bolivian sheath was left in place and selective coronary arteriography and left ventriculography was performed. Patient tolerated the procedure well. Femoral angiogram was performed and manual compression was applied for hemostasis. No immediate complications were noted and patient was transferred to [facility] in a stable condition Conscious Sedation: Versed 1 mg Fentanyl 25g Duration 47minutes HEMODYNAMICS: Right heart catheterization: The right atrial pressure was 3. Right ventricle pressure was 35 over 4. Pulmonary artery pressure was 35/12. Pulmonary wedge pressure was about 10. However, at the end of the procedure the pulmonary wedge pressure went up to 25-30 with big V waves. SELECTIVE CORONARY ARTERIOGRAPHY: LEFT MAIN: Short and calcified and seems to be diffusely diseased with at least 50-60% stenosis which may be eccentric THE LEFT ANTERIOR DESCENDING CORONARY ARTERY: This is a small-caliber vessel giving rise to small caliber diagonal branch. At the origin of the diagonal and septal branches. There appears to be 50-60% lesion involving the LAD extending into the ostium of the diagonal. THE LEFT CIRCUMFLEX AND IS CORONARY ARTERY: This is small in caliber with a faint flow and diffusely diseased vessel. THE RIGHT CORONARY ARTERY: This is a small to moderate caliber vessel with diffuse disease and calcification. There is a 95% stenosis in the midportion. The distal vessel is a diffusedly diseased LEFT VENTRICULOGRAPHY: . This revealed dilated left ventricle [moderately] with hypokinesis of the inferobasal segment and severe mitral regurgitation FINAL IMPRESSION: Severe mitral regurgitation with diffuse triple-vessel disease with a critical lesion in the mid RCA and probably significant disease involving left main and circumflex PLAN: Triple-vessel bypass surgery with mitral valve repair or replacement PROGNOSIS: Guarded
== END 2017-07-10 16:32 | disposition home or self-care (01) ==
LOC: CATHCVL 07:54 → 6SEL 10:15 → CATHCVL 07-10 16:32
PROVIDERS: ATTEND Internal Medicine Cardiovascular Disease
DX: R06.00 Dyspnea, unspecified (principal); I34.0 Nonrheumatic mitral (valve) insufficiency; I25.10 Atherosclerotic heart disease of native coronary artery without angina pectoris; I25.84 Coronary atherosclerosis due to calcified coronary lesion; Z87.891 Personal history of nicotine dependence; E78.5 Hyperlipidemia, unspecified; E11.22 Type 2 diabetes mellitus with diabetic chronic kidney disease; I13.0 Hypertensive heart and chronic kidney disease with heart failure and stage 1 through stage 4 chronic kidney disease, or unspecified chronic kidney disease; N18.3 Chronic kidney disease, stage 3 (moderate); Z79.84 Long term (current) use of oral hypoglycemic drugs; I50.9 Heart failure, unspecified; Z90.12 Acquired absence of left breast and nipple; Z86.73 Personal history of transient ischemic attack (TIA), and cerebral infarction without residual deficits; Z82.49 Family history of ischemic heart disease and other diseases of the circulatory system; Z87.09 Personal history of other diseases of the respiratory system; Z85.3 Personal history of malignant neoplasm of breast; Z92.3 Personal history of irradiation; I97.2 Postmastectomy lymphedema syndrome; Z79.02 Long term (current) use of antithrombotics/antiplatelets; Z79.899 Other long term (current) drug therapy; Z88.2 Allergy status to sulfonamides; Z88.8 Allergy status to other drugs, medicaments and biological substances
CPT/HCPCS: 94150; 93460; 80061; 80053; 80048; 80074; 85018; 84443; 82810; 83735; 85025 ×2; 85610; 85730; 81001; 87070; 87086 ×2; 87077 ×2; 87186 ×2; 83036; 71046; 93970; C1894 ×2; C1769; J2001; J2250; J1940; Q9967

== ENCOUNTER → 2017-07-18 | Outpatient (CLI) | payer MEDICARE ==
[2017-07-18 11:52] LABS: Appearance,Urine Clear (Clear); Bilirubin,Urine Negative (Negative); Blood,Urine Small (Negative); Color,Urine Light Yellow; Glucose,Urine (UA) Negative (Negative); Ketones,Urine Negative (Negative); Leukocyte Esterase,Urine Small (Negative); Mucus,Urine Rare /hpf; Nitrite,Urine Negative (Negative); Protein,Urine Negative (Negative); RBC,Urine 12 /hpf (0-5); Specific Gravity,Urine 1.009 (1.001-1.035); Squamous Epithelial Cell,Urine 1 /hpf (0-4); Urobilinogen,Urine <2.0 mg/dL (<2.0); WBC,Urine 8 /hpf (0-5)
[2017-07-18 11:57] LABS: HCT 37.5 % (34.0-46.0); HGB 11.5 gm/dL (11.4-16.0); Hypochromasia Slight; MCH 23.4 pg (25.0-35.0); MCHC 30.7 g/dL (31.0-37.0); MCV 76.4 fL (80.0-100.0); Mean Platelet Volume 6.4; Microcytosis Slight; Platelet Count 411 k/uL (150-450); RBC 4.92 m/uL (3.80-5.40); RDW 15.1 % (11.5-15.5); WBC 8.9 k/uL (3.8-10.6)
[2017-07-18 12:08] LABS: Calcium 9.7 mg/dL (8.4-10.2); Potassium 4.6 mmol/L (3.5-5.1)
== END | disposition home or self-care (01) ==
LOC: LABPAT 07:24
PROVIDERS: ATTEND Surgery
DX: I25.10 Atherosclerotic heart disease of native coronary artery without angina pectoris (principal); Z95.2 Presence of prosthetic heart valve
CPT/HCPCS: 36415; 80048; 81001; 83880; 85027; 86850; 86870; 86880; 86900; 86901; 86920; 87086

== ENCOUNTER → 2017-09-19 | Outpatient (CLI) | payer MEDICARE ==
--- NOTE | 2017-09-19 15:45 | XR ---
2 view abdomen HISTORY: Generalized abdomen pain and hematuria 2 views of the abdomen submitted. No comparisons Postop changes are noted to the heart, there is increased attenuation at the left lung base with obsc ured left hemidiaphragm and blunted left costophrenic angle. There is a mild spinal curvature with de generative disc changes in the visualized spine. No evident pneumoperitoneum or bowel obstruction, th ere are air-filled loops of small bowel present with air fluid levels. No evident calcification. IMPRESSION: There may be underlying ileus or enteritis, follow-up as indicated if obstruction is susp ected clinically. Left lower lobe atelectasis and associated effusion, postop changes. Additional fin dings above.
== END | disposition home or self-care (01) ==
LOC: RADXRYALE 10:07
PROVIDERS: ATTEND Physician Assistant Medical
DX: R10.84 Generalized abdominal pain (principal); Z98.890 Other specified postprocedural states
CPT/HCPCS: 74019

== ENCOUNTER → 2017-10-04 | Outpatient (CLI) | payer MEDICARE ==
--- NOTE | 2017-10-05 09:09 | XR ---
EXAMINATION TYPE: XR chest 2V DATE OF EXAM: 10/04/2017 COMPARISON: Prior chest 08/02/2017 HISTORY: Abnormal chest x-ray, pleural effusion TECHNIQUE: Frontal and lateral views of the chest are obtained. FINDINGS: Increased density at the left lung base obscures the heart border and left hemidiaphragm, there is blunting of the costophrenic angle. No evident pneumothorax. Patient is post median sternoto my, atrial appendage clipping, mitral valve replacement. Heart size within normal limits. Pulmonary v ascularity and camacho within normal limits. IMPRESSION: Left pleural effusion and associated atelectasis, correlate to exclude pneumonia.
== END | disposition home or self-care (01) ==
LOC: RADXRYALE 16:11
PROVIDERS: ATTEND Family Medicine
DX: J90 Pleural effusion, not elsewhere classified (principal); J98.11 Atelectasis
CPT/HCPCS: 71046

== ENCOUNTER → 2018-01-14 | Outpatient (CLI) | payer MEDICARE ==
--- NOTE | 2018-01-14 11:55 | MM ---
Reason for exam: additional evaluation requested from prior study. History: Patient has history of breast cancer at age 51. Family history of breast cancer in sister at age 50. Lumpectomy of the right breast, 2011. Radiation therapy of the right breast, 2011. Implant in the left breast, 1991. Mastectomy of the left breast, 1991. Radiation therapy of the left breast, 1991. Chemotherapy. Took antineoplastic for 10 years beginning at age 51. Took other hormone beginning at age 71. Physical Findings: Nurse did not find any significant physical abnormalities on exam. MG 3D Diag Mammo W/Cad RT CC and MLO view(s) were taken of the right breast. The breast tissue is heterogeneously dense. This may lower the sensitivity of mammography. There is no discrete abnormality. Changes on lumpectoy and radiation therapy. These results were verbally communicated with the patient and result sheet given to the patient on 01/14/18. ASSESSMENT: Benign, BI-RAD 2 RECOMMENDATION: Follow-up diagnostic mammogram of the right breast in 1 year.
== END | disposition home or self-care (01) ==
LOC: RADMAMWWP 09:56
PROVIDERS: ATTEND Internal Medicine Hematology & Oncology
DX: Z08 Encounter for follow-up examination after completed treatment for malignant neoplasm (principal); Z85.3 Personal history of malignant neoplasm of breast
CPT/HCPCS: 77065; G0279; 77061

== ENCOUNTER 2018-02-05 15:44 | Inpatient (IN) | payer MEDICARE ==
[2018-02-05] MEDS ORDERED: SODIUM CHLORIDE 0.9% 1,000 ML IV STA (16:21)
[2018-02-05] MEDS ORDERED: SODIUM CHLORIDE 0.9% 500 ML 500 ML IV STA (16:21)
--- NOTE | 2018-02-05 16:27 | ED ---
Weakness HPI - General Chief complaint: Weakness Stated complaint: abnormal labs/poss UTI Time Seen by Provider: 02/05/18 16:00 Source: patient, RN notes reviewed Mode of arrival: ambulatory Limitations: no limitations - History of Present Illness Initial comments: This is a 77-year-old female history of anemia who is required to iron infusions recently history of bypass surgery and valve surgery's test year who complains today of weakness is getting worse slight weight loss feels lightheaded and dizzy when she tries to walk no nausea vomiting fevers chills or sweats he apparently was recently diagnosed with UTI. Dilation no other modifying factors or complaints at this time MD Complaint: generalized weakness - Related Data Home Medications Medication Instructions Recorded Confirmed Cholecalciferol (Vitamin D3) 2,000 unit PO DAILY 07/05/17 02/05/18 [Vitamin D3] Clopidogrel [Plavix] 75 mg PO DAILY 01/21/18 02/05/18 Ferrous Sulfate [Iron] 325 mg PO DAILY 01/21/18 02/05/18 Spironolactone [Aldactone] 25 mg PO DAILY 01/21/18 02/05/18 Acetaminophen [Tylenol] 1,000 mg PO Q4-6H PRN 02/05/18 02/05/18 Carvedilol [Coreg] 3.125 mg PO DAILY 02/05/18 02/05/18 Losartan/Hydrochlorothiazide 1 tab PO DAILY 02/05/18 02/05/18 [Losartan-Hctz 50-12.5 mg Tab] Pravastatin Sodium [Pravachol] 30 mg PO DAILY 02/05/18 02/05/18 metFORMIN HCL [Glucophage] 1,000 mg PO BID 02/05/18 02/05/18 Allergies Allergy/AdvReac Type Severity Reaction Status Date / Time lisinopril Allergy Severe Swelling Verified 02/05/18 16:39 rosuvastatin [From Crestor] AdvReac Severe muscle Verified 02/05/18 16:39 cramping/jt pain Sulfa (Sulfonamide AdvReac headache Verified 02/05/18 16:39 Antibiotics) Review of Systems ROS Statement: Those systems with pertinent positive or pertinent negative responses have been documented in the HPI. ROS Other: All systems not noted in ROS Statement are negative. Past Medical History Past Medical History: Coronary Artery Disease (CAD), Cancer, CVA/TIA, Diabetes Mellitus, Hyperlipidemia, Hypertension Additional Past Medical History / Comment(s): Coronary artery disease, Hx TIA, hypertension, hyperlipidemia, lymphedema of the left upper extremity related to a previous breast surgery, Bilateral breast cancer with lt mastectomy., Radiation Right Breast., low iron- has received iron transfusions., pt had CABG with repair of Mitral Valve (July 2017). History of Any Multi-Drug Resistant Organisms: None Reported Past Surgical History: Breast Surgery, Cholecystectomy, Coronary Bypass/CABG Additional Past Surgical History / Comment(s): lt mastectomy with reconstruction with abdominal flap, carotid endarterectomy, Triple CABG with repair Mitral Valve (July 2017) Past Anesthesia/Blood Transfusion Reactions: No Reported Reaction Additional Past Anesthesia/Blood Transfusion Reaction / Comment(s): . Past Psychological History: No Psychological Hx Reported Smoking Status: Former smoker Past Alcohol Use History: Occasional Past Drug Use History: None Reported - Past Family History Father Family Medical History: Cancer Additional Family Medical History / Comment(s): colon cancer Daughter(s) Family Medical History: Cancer Additional Family Medical History / Comment(s): ovarian cancer Sister(s) Family Medical History: Coronary Artery Disease (CAD) Brother(s) Family Medical History: Coronary Artery Disease (CAD) General Exam - General Exam Comments Initial Comments: This is a well-developed asthenic appearing female who is pale she is awake alert oriented 3 Limitations: no limitations General appearance: alert, in no apparent distress Head exam: Present: atraumatic, normocephalic, normal inspection Eye exam: Present: normal appearance, PERRL, EOMI. Absent: scleral icterus, conjunctival injection, periorbital swelling ENT exam: Present: mucous membranes dry Neck exam: Present: normal inspection. Absent: tenderness, meningismus, lymphadenopathy Respiratory exam: Present: normal lung sounds bilaterally. Absent: respiratory distress, wheezes, rales, rhonchi, stridor Cardiovascular Exam: Present: regular rate, normal rhythm, normal heart sounds. Absent: systolic murmur, diastolic murmur, rubs, gallop, clicks GI/Abdominal exam: Present: soft, normal bowel sounds. Absent: distended, tenderness, guarding, rebound, rigid Extremities exam: Present: normal inspection, full ROM, normal capillary refill. Absent: tenderness, pedal edema, joint swelling, calf tenderness Back exam: Present: normal inspection Neurological exam: Present: alert, oriented X3, CN II-XII intact Psychiatric exam: Present: normal affect, normal mood Skin exam: Present: warm, dry, intact, pallor. Absent: rash Course Vital Signs 02/05/18 02/05/18 02/05/18 15:49 17:06 18:18 Temperature 97.7 F Pulse Rate 99 83 85 Respiratory 18 18 18 Rate Blood Pressure 105/56 109/71 118/59 O2 Sat by Pulse 97 98 97 Oximetry Medical Decision Making - Medical Decision Making I did a long discussion with patient regarding findings along with her family member was present. She'll be admitted for evaluation of lung mass in addition to urinary tract infection chronic anemia renal insufficiency she also does have a mildly elevated troponin. - Lab Data Result diagrams: 02/05/18 16:20 02/05/18 16:20 Lab Results 02/05/18 02/05/18 02/05/18 Range/Units 16:20 16:20 16:20 WBC 15.5 H (3.8-10.6) k/uL RBC 4.28 (3.80-5.40) m/uL Hgb 10.6 L (11.4-16.0) gm/dL Hct 38.0 (34.0-46.0) % MCV 88.8 (80.0-100.0) fL MCH 24.8 L (25.0-35.0) pg MCHC 27.9 L (31.0-37.0) g/dL RDW 18.6 H (11.5-15.5) % Plt Count 617 H (150-450) k/uL Neutrophils % 86 % Lymphocytes % 7 % Monocytes % 5 % Eosinophils % 1 % Basophils % 0 % Neutrophils # 13.3 H (1.3-7.7) k/uL Lymphocytes # 1.2 (1.0-4.8) k/uL Monocytes # 0.8 (0-1.0) k/uL Eosinophils # 0.2 (0-0.7) k/uL Basophils # 0.0 (0-0.2) k/uL Hypochromasia Marked Anisocytosis Slight Sodium 132 L (137-145) mmol/L Potassium 5.6 H (3.5-5.1) mmol/L Chloride 100 (98-107) mmol/L Carbon Dioxide 25 (22-30) mmol/L Anion Gap 7 mmol/L BUN 36 H (7-17) mg/dL Creatinine 1.18 H (0.52-1.04) mg/dL Est GFR (CKD-EPI)AfAm 52 (>60 ml/min/1.73 sqM) Est GFR (CKD-EPI)NonAf 45 (>60 ml/min/1.73 sqM) Glucose 131 H (74-99) mg/dL Calcium 12.8 H (8.4-10.2) mg/dL Magnesium 2.3 (1.6-2.3) mg/dL Total Bilirubin 1.0 (0.2-1.3) mg/dL AST 95 H (14-36) U/L ALT 44 (9-52) U/L Alkaline Phosphatase 144 H (38-126) U/L Total Creatine Kinase 56 (30-135) U/L CK-MB (CK-2) 0.4 (0.0-2.4) ng/mL CK-MB (CK-2) Rel Index 0.7 Troponin I 0.142 H* (0.000-0.034) ng/mL Total Protein 5.6 L (6.3-8.2) g/dL Albumin 2.7 L (3.5-5.0) g/dL Amylase 45 (30-110) U/L Lipase 245 (23-300) U/L Urine Color Urine Appearance (Clear) Urine pH (5.0-8.0) Ur Specific [place] (1.001-1.035) Urine Protein (Negative) Urine Glucose (UA) (Negative) Urine Ketones (Negative) Urine Blood (Negative) Urine Nitrite (Negative) Urine Bilirubin (Negative) Urine Urobilinogen (<2.0) mg/dL Ur Leukocyte Esterase (Negative) Urine RBC (0-5) /hpf Urine WBC (0-5) /hpf Ur Squamous Epith Cells (0-4) /hpf Urine Bacteria (None) /hpf Hyaline Casts (0-2) /lpf 02/05/18 Range/Units 17:03 WBC (3.8-10.6) k/uL RBC (3.80-5.40) m/uL Hgb (11.4-16.0) gm/dL Hct (34.0-46.0) % MCV (80.0-100.0) fL MCH (25.0-35.0) pg MCHC (31.0-37.0) g/dL RDW (11.5-15.5) % Plt Count (150-450) k/uL Neutrophils % % Lymphocytes % % Monocytes % % Eosinophils % % Basophils % % Neutrophils # (1.3-7.7) k/uL Lymphocytes # (1.0-4.8) k/uL Monocytes # (0-1.0) k/uL Eosinophils # (0-0.7) k/uL Basophils # (0-0.2) k/uL Hypochromasia Anisocytosis Sodium (137-145) mmol/L Potassium (3.5-5.1) mmol/L Chloride (98-107) mmol/L Carbon Dioxide (22-30) mmol/L Anion Gap mmol/L BUN (7-17) mg/dL Creatinine (0.52-1.04) mg/dL Est GFR (CKD-EPI)AfAm (>60 ml/min/1.73 sqM) Est GFR (CKD-EPI)NonAf (>60 ml/min/1.73 sqM) Glucose (74-99) mg/dL Calcium (8.4-10.2) mg/dL Magnesium (1.6-2.3) mg/dL Total Bilirubin (0.2-1.3) mg/dL AST (14-36) U/L ALT (9-52) U/L Alkaline Phosphatase (38-126) U/L Total Creatine Kinase (30-135) U/L CK-MB (CK-2) (0.0-2.4) ng/mL CK-MB (CK-2) Rel Index Troponin I (0.000-0.034) ng/mL Total Protein (6.3-8.2) g/dL Albumin (3.5-5.0) g/dL Amylase (30-110) U/L Lipase (23-300) U/L Urine Color Yellow Urine Appearance Cloudy H (Clear) Urine pH 5.5 (5.0-8.0) Ur Specific [place] 1.019 (1.001-1.035) Urine Protein 1+ H (Negative) Urine Glucose (UA) Negative (Negative) Urine Ketones Negative (Negative) Urine Blood Small H (Negative) Urine Nitrite Negative (Negative) Urine Bilirubin Negative (Negative) Urine Urobilinogen 4.0 (<2.0) mg/dL Ur Leukocyte Esterase Large H (Negative) Urine RBC 5 (0-5) /hpf Urine WBC >182 H (0-5) /hpf Ur Squamous Epith Cells 3 (0-4) /hpf Urine Bacteria Moderate H (None) /hpf Hyaline Casts 4 H (0-2) /lpf - EKG Data -: EKG Interpreted by Me EKG shows normal: sinus rhythm (Sinus rhythm rate is 83 [place] interval 150 to QRS 114 QT since QTC 350/411 nonspecific inferior changes as compared with an EKG dated 07/26/17) - Radiology Data Radiology results: report reviewed (I did review the imaging and discussed the case the radiologist present evidence of a right lower lobe and possible right upper lobe mass.), image reviewed Critical Care Time Critical Care Time: Yes Critical Care Time: 31 minutes of critical care time which includes initial presentation with history physical labs x-rays reevaluation patient. Discussed with patient family regarding findings discussed with the admitting physician admission orders neck mentation the above review of old charting. Also discussed with the radiologist. Disposition Clinical Impression: Lung mass, Urinary tract infection, Renal insufficiency, Failure to thrive, Non -STEMI (non-ST elevated myocardial infarction), Chronic anemia Disposition: ADMITTED IP TO THIS [facility] Condition: Serious Referrals: Juni Graves DO [Primary Care Provider] - 1-2 days
[2018-02-05 16:41] LABS: Albumin 2.7 g/dL (3.5-5.0); Calcium 12.8 mg/dL (8.4-10.2); Magnesium 2.3 mg/dL (1.6-2.3); Total Protein 5.6 g/dL (6.3-8.2)
[2018-02-05 16:43] LABS: Potassium 5.6 mmol/L (3.5-5.1)
[2018-02-05 16:46] LABS: Anisocytosis Slight; Basophils % (A) 0 %; Eosinophils # (A) 0.2 k/uL (0-0.7); Eosinophils % (A) 1 %; HGB 10.6 gm/dL (11.4-16.0); Hypochromasia Marked; Lymphocytes # (A) 1.2 k/uL (1.0-4.8); Lymphocytes % (A) 7 %; MCH 24.8 pg (25.0-35.0); MCHC 27.9 g/dL (31.0-37.0); MCV 88.8 fL (80.0-100.0); Mean Platelet Volume 6.9; Monocytes # (A) 0.8 k/uL (0-1.0); Monocytes % (A) 5 %; Neutrophils # (A) 13.3 k/uL (1.3-7.7); Neutrophils % (A) 86 %; Platelet Count 617 k/uL (150-450); RBC 4.28 m/uL (3.80-5.40); RDW 18.6 % (11.5-15.5); WBC 15.5 k/uL (3.8-10.6)
[2018-02-05 17:08] LABS: Creatine Kinase MB 0.4 ng/mL (0.0-2.4)
[2018-02-05 17:16] LABS: Troponin I 0.142 ng/mL (0.000-0.034)
[2018-02-05 17:18] LABS: Appearance,Urine Cloudy (Clear); Bacteria,Urine Moderate /hpf; Bilirubin,Urine Negative (Negative); Blood,Urine Small (Negative); Color,Urine Yellow; Glucose,Urine (UA) Negative (Negative); Hyaline Casts,Urine 4 /lpf (0-2); Ketones,Urine Negative (Negative); Leukocyte Esterase,Urine Large (Negative); Nitrite,Urine Negative (Negative); PH, Urine 5.5 (5.0-8.0); Protein,Urine 1+ (Negative); RBC,Urine 5 /hpf (0-5); Specific Gravity,Urine 1.019 (1.001-1.035); Squamous Epithelial Cell,Urine 3 /hpf (0-4); WBC,Urine >182 /hpf (0-5)
--- NOTE | 2018-02-05 17:20 | XR ---
EXAMINATION TYPE: XR chest 2V DATE OF EXAM: 02/05/2018 COMPARISON: Prior chest x-ray 10/04/2017 HISTORY: Cough TECHNIQUE: Frontal and lateral views of the chest are obtained. FINDINGS: There is a mass present which may be in the superior segment right lower lobe or possibly right upper lobe that has developed in the interval and measures approximately 4.7 cm may be pleural- based. No evident pneumothorax. Smaller nodules are also present within the right lung not seen on pr ior exam. No pleural effusion. Cardiomediastinal silhouette, pulmonary vascularity and camacho are not s ignificantly changed. Patient shows cardiac valve replacement. Improved aeration at the left lung bas e. IMPRESSION: Findings could possibly represent metastatic disease. Recommend chest CT.
[2018-02-05] MEDS ORDERED: NITROGLYCERIN SL TABS 0.4 MG TAB SUBLINGUAL PRN (18:42)
[2018-02-05] MEDS: INSULIN ASPART 100 UNIT/ML 1 ML 10 ML VIAL SQ SCH (21:11)
[2018-02-05] MEDS: HEPARIN SODIUM,PORCINE 5,000 UNIT/ML 1 ML VIAL SQ SCH (21:19)
[2018-02-05] MEDS: metFORMIN 500 MG TAB PO SCH (21:19)
[2018-02-06 00:01] LABS: Creatine Kinase MB 0.3 ng/mL (0.0-2.4)
[2018-02-06 00:08] LABS: Troponin I 0.122 ng/mL (0.000-0.034)
[2018-02-06 00:54] LABS: Cholesterol 84 mg/dL (<200); HDL Cholesterol 18 mg/dL (40-60); LDL Cholesterol,Calculated 41 mg/dL (0-99); Triglycerides 126 mg/dL (<150)
[2018-02-06] MEDS: ACETAMINOPHEN TAB 500 MG TAB PO PRN ×2 (01:37→20:30)
[2018-02-06] MEDS: metFORMIN 500 MG TAB PO SCH (06:14)
[2018-02-06] MEDS: INSULIN ASPART 100 UNIT/ML 1 ML 10 ML VIAL SQ SCH ×4 (06:15→20:57)
[2018-02-06] MEDS: CARVEDILOL 3.125 MG TAB PO SCH (06:16)
[2018-02-06 06:20] LABS: Glucose,Whole Blood 87 mg/dL (75-99)
[2018-02-06 06:26] LABS: Creatine Kinase MB 0.3 ng/mL (0.0-2.4)
[2018-02-06 06:33] LABS: Troponin I 0.134 ng/mL (0.000-0.034)
[2018-02-06] MEDS ORDERED: LOSARTAN-HCTZ 50-12.5 MG 1 EACH TAB PO SCH (09:00)
[2018-02-06] MEDS ORDERED: SPIRONOLACTONE 25 MG TAB PO SCH (09:00)
[2018-02-06] MEDS: HEPARIN SODIUM,PORCINE 5,000 UNIT/ML 1 ML VIAL SQ SCH ×2 (09:53→20:31)
[2018-02-06] MEDS: CHOLECALCIFEROL 1,000 UNIT TAB PO SCH (09:53)
[2018-02-06] MEDS: CLOPIDOGREL 75 MG TAB PO SCH (09:53)
[2018-02-06] MEDS: FERROUS SULFATE 325 MG TAB PO SCH (09:53)
[2018-02-06] MEDS: ASPIRIN 325 MG TAB PO SCH (09:53)
--- NOTE | 2018-02-06 11:57 | CONS ---
CONSULTATION CHIEF COMPLAINT: Elevated troponins. Breana is a 77-year-old lady with history of coronary artery disease, status post CABG, mitral regurgitation, status post mitral valve repair, TIA status post left carotid endarterectomy, hypertension, dyslipidemia, non-insulin diabetes, breast cancer, who was evaluated in the outpatient setting with symptoms of feeling fatigued, tired, not doing well. Apparently had workup that was abnormal due to which she was sent to the emergency room from where she got admitted. She has urinary tract infection and also has elevated serum calcium at 12.8. Potassium is 5.6. She has prerenal azotemia with a BUN of 36 and creatinine of 1.1. Her hemoglobin is low at 10.6. Troponins were mildly elevated at 0.1, 0.1 and 0.1. LDL cholesterol is 41. EKG shows sinus rhythm with evidence of prior inferior wall myocardial infarction without acute ST-T wave changes. AST is elevated. On this admission, they also found the chest x-ray revealed a mass that is suggestive of metastatic disease. From cardiac standpoint, the troponin elevation could be related to the renal insufficiency in a patient who is not having chest pain and who does not have significant ischemic EKG changes. I do not believe we would require further cardiac workup at this time. We will treat her with aspirin, Coreg, Plavix, and pravastatin that she is currently on. The patient is being treated with intravenous antibiotics for urinary tract infection. The lung mass is currently being worked up. PAST MEDICAL HISTORY: Significant for coronary artery disease, status post CABG, mitral regurgitation, status post mitral valve repair, hypertension, dyslipidemia, diabetes, possible metastatic cancer. MEDICATIONS: Medications include metformin 1000 b.i.d., pravastatin 30 q. daily, losartan, Coreg 3.125, Aldactone 25 mg daily, Plavix 75 mg daily and iron. ALLERGIES: Allergic to LISINOPRIL, CRESTOR and SULFA. FAMILY HISTORY: Family history is negative for premature coronary artery disease. SOCIAL HISTORY: Negative for current smoking, EtOH abuse, or drug abuse. REVIEW OF SYSTEMS: HEENT is unremarkable. CARDIAC: As described above. RESPIRATORY: As described above. GI: Negative. GENITOURINARY: Negative. ALLERGY/IMMUNOLOGY: Negative. SKIN: Negative. MUSCULOSKELETAL: Significant for arthritis. PSYCHOSOCIAL: Negative. ENDOCRINE: Negative. HEMATOLOGIC: Negative. DERM: Negative. CONSTITUTIONAL: Negative. ONCOLOGICAL: Rest of the system review is not relevant. PHYSICAL EXAMINATION: On exam, patient is afebrile. Heart rate is 80 beats per minute. Blood pressure is 111/55, respiratory rate is 18, O2 sat is 99% on room air. There is no jugular venous distention. Carotid upstroke is normal. There is no bruit. Chest exam reveals good air entry bilaterally. I do not hear any crackles or rhonchi. Heart exam reveals first and second heart sounds and a systolic murmur at the apex. Abdomen is soft. Examination of the extremities did not reveal any edema. Peripheral pulses are felt. [employer] exam did not reveal focal neurological deficits. ASSESSMENT: 1. Elevated troponins, probably secondary to renal insufficiency. 2. Possible metastatic cancer within the lungs. 3. Urinary tract infection. 4. Coronary artery disease, status post coronary artery bypass grafting. 5. Mitral regurgitation, status post mitral valve repair. PLAN: I reviewed the patient's x-rays, EKGs, lab workup. I will obtain a 2D echo to assess LV function and wall motion. I will continue to treat with the aggressive medical therapy that she is on. Thank you for allowing us to participate in this pleasant lady. MMODL / IJN: [id number] /
[2018-02-06 12:20] LABS: Glucose,Whole Blood 145 mg/dL (75-99)
[2018-02-06] MEDS: PRAVASTATIN SODIUM 20 MG TAB PO SCH (12:36)
[2018-02-06] MEDS: AZITHROMYCIN 500 MG TAB PO SCH (12:36)
[2018-02-06] MEDS: SODIUM CHLORIDE 0.9% 1,000 ML IV SCH ×2 (12:39→20:30)
--- NOTE | 2018-02-06 13:31 | P.HPIM ---
History of Present Illness 77-year-old wasn't female came in with complaints of generalized tiredness when questioned patient did complain of dysuria that he does have significantly abnormal urine subsequently admitted with [facility]. Patient is very thin built had a recent coronary artery bypass graft surgery along with a valve replacement surgery. Patient has multiple other issues going on at this time. Patient chest x-ray was obtained which showed a small masslike consolidation because of which pulmonology was consulted I did review the images with Dr. Barron glue bone drier in the this mass was not present in previous x-rays because of which pulmonology believes may be pneumonia, recommending an of the chest x-ray tomorrow if it's still shows this masslike consolidation will obtain a CAT scan of the chest that at this time her creatinine is borderline. Patient is comparing of cough yellowish sputum production. Because of which pulmonology is recommending to add azithromycin. Patient does have elevated potassium which she is secondary to hemolysis patient is on Aldactone which is being held and losartan is being held as well along with hydrochlorothiazide her blood pressure is on the low normal side. Repeat basic metabolic profile tomorrow patient was started on IV fluids patient had a normal ejection fraction the past although had a pleural effusion post CABG and removal of the fluid from the right to lung. Patient masslike lesion is in the right middle lobe. Patient will be continued on sliding scale insulin and metformin will be held as an Review of Systems REVIEW OF SYSTEMS: CONSTITUTIONAL: No fever HEENT: No recent visual problems or hearing problems. Denied any sore throat. CARDIOVASCULAR: No chest pain, orthopnea, PND, no palpitations, no syncope. PULMONARY: No shortness of breath, no cough, no hemoptysis. GASTROINTESTINAL: No diarrhea, no nausea, no vomiting, no abdominal pain. Normoactive bowel sounds. NEUROLOGICAL: No headaches, no weakness, no numbness. HEMATOLOGICAL: Denies any bleeding or petechiae. GENITOURINARY: As mentioned in HPI MUSCULOSKELETAL/RHEUMATOLOGICAL: Denies any joint pain, swelling, or any muscle pain. ENDOCRINE: Denies any polyuria or polydipsia. The rest of the 14-point review of systems is negative. Past Medical History Past Medical History: Coronary Artery Disease (CAD), Cancer, CVA/TIA, Diabetes Mellitus, Hyperlipidemia, Hypertension Additional Past Medical History / Comment(s): Coronary artery disease, Hx TIA, hypertension, hyperlipidemia, lymphedema of the left upper extremity related to a previous breast surgery, Bilateral breast cancer with lt mastectomy., Radiation Right Breast., low iron- has received iron transfusions., pt had CABG with repair of Mitral Valve (July 2017). History of Any Multi-Drug Resistant Organisms: None Reported Past Surgical History: Breast Surgery, Cholecystectomy, Coronary Bypass/CABG Additional Past Surgical History / Comment(s): lt mastectomy with reconstruction with abdominal flap, carotid endarterectomy, Triple CABG with repair Mitral Valve (July 2017) Past Anesthesia/Blood Transfusion Reactions: No Reported Reaction Additional Past Anesthesia/Blood Transfusion Reaction / Comment(s): . Past Psychological History: No Psychological Hx Reported Smoking Status: Former smoker Past Alcohol Use History: Occasional Additional Past Alcohol Use History / Comment(s): smoked 15 years, 2 ppd ,quit 1987. Past Drug Use History: None Reported - Past Family History Father Family Medical History: Cancer Additional Family Medical History / Comment(s): colon cancer Daughter(s) Family Medical History: Cancer Additional Family Medical History / Comment(s): ovarian cancer Sister(s) Family Medical History: Coronary Artery Disease (CAD) Brother(s) Family Medical History: Coronary Artery Disease (CAD) Medications and Allergies Home Medications Medication Instructions Recorded Confirmed Type Cholecalciferol (Vitamin D3) 2,000 unit PO DAILY 07/05/17 02/05/18 History [Vitamin D3] Clopidogrel [Plavix] 75 mg PO DAILY 01/21/18 02/05/18 History Ferrous Sulfate [Iron] 325 mg PO DAILY 01/21/18 02/05/18 History Spironolactone [Aldactone] 25 mg PO DAILY 01/21/18 02/05/18 History Acetaminophen [Tylenol] 1,000 mg PO Q4-6H PRN 02/05/18 02/05/18 History Carvedilol [Coreg] 3.125 mg PO DAILY 02/05/18 02/05/18 History Losartan/Hydrochlorothiazide 1 tab PO DAILY 02/05/18 02/05/18 History [Losartan-Hctz 50-12.5 mg Tab] Pravastatin Sodium [Pravachol] 30 mg PO DAILY 02/05/18 02/05/18 History metFORMIN HCL [Glucophage] 1,000 mg PO BID 02/05/18 02/05/18 History Allergies Allergy/AdvReac Type Severity Reaction Status Date / Time lisinopril Allergy Severe Swelling Verified 02/05/18 16:39 rosuvastatin [From Crestor] AdvReac Severe muscle Verified 02/05/18 16:39 cramping/jt pain Sulfa (Sulfonamide AdvReac headache Verified 02/05/18 16:39 Antibiotics) Physical Exam Vitals: Vital Signs Temp Pulse Pulse Resp BP BP Pulse Ox 02/06/18 12:00 97 F L 81 16 105/51 99 02/06/18 09:40 97 F L 81 16 111/55 99 02/06/18 04:00 97.2 F L 83 18 122/50 99 02/06/18 00:00 97.5 F L 89 18 127/56 99 02/05/18 20:28 98.3 F 91 18 128/59 97 02/05/18 20:00 97.8 F 91 18 137/74 97 02/05/18 19:41 90 18 103/47 96 02/05/18 19:25 97.9 F 64 18 97 02/05/18 18:18 85 18 118/59 97 02/05/18 17:06 83 18 109/71 98 02/05/18 15:49 97.7 F 99 18 105/56 97 Intake and Output 02/05/18 02/06/18 02/06/18 22:59 06:59 14:59 Intake Total 480 480 170 Output Total 450 700 Balance 30 -220 170 Intake: IV 50 cefTRIAXone 1,000 mg In 50 Sodium Chloride 0.9% 50 ml @ 100 mls/hr IVPB ONCE STA Rx#:[id number] Oral 480 480 120 Output: Urine 450 700 Other: Voiding Method Bedpan Bedpan Bedpan # Voids 1 Weight 48.988 kg 48.2 kg PHYSICAL EXAMINATION: GENERAL: The patient is alert and oriented x3, not in any acute distress. Thin built HEENT: Pupils are round and equally reacting to light. EOMI. No scleral icterus. No conjunctival pallor. Normocephalic, atraumatic. No pharyngeal erythema. No thyromegaly. CARDIOVASCULAR: S1 and S2 present. No murmurs, rubs, or gallops. PULMONARY: Chest is clear to auscultation, no wheezing or crackles. ABDOMEN: Soft, nontender, nondistended, normoactive bowel sounds. No palpable organomegaly. MUSCULOSKELETAL: No joint swelling or deformity. EXTREMITIES: No cyanosis, clubbing, or pedal edema. NEUROLOGICAL: Gross neurological examination did not reveal any focal deficits. SKIN: No rashes. Results CBC & Chem 7: 02/05/18 16:20 02/06/18 05:20 Labs: Abnormal Lab Results - Last 24 Hours (Table) 02/05/18 02/05/18 02/05/18 Range/Units 16:20 16:20 16:20 WBC 15.5 H (3.8-10.6) k/uL Hgb 10.6 L (11.4-16.0) gm/dL MCH 24.8 L (25.0-35.0) pg MCHC 27.9 L (31.0-37.0) g/dL RDW 18.6 H (11.5-15.5) % Plt Count 617 H (150-450) k/uL Neutrophils # 13.3 H (1.3-7.7) k/uL Sodium 132 L (137-145) mmol/L Potassium 5.6 H (3.5-5.1) mmol/L BUN 36 H (7-17) mg/dL Creatinine 1.18 H (0.52-1.04) mg/dL Glucose 131 H (74-99) mg/dL POC Glucose (mg/dL) (75-99) mg/dL Calcium 12.8 H (8.4-10.2) mg/dL AST 95 H (14-36) U/L Alkaline Phosphatase 144 H (38-126) U/L Troponin I 0.142 H* (0.000-0.034) ng/mL Total Protein 5.6 L (6.3-8.2) g/dL Albumin 2.7 L (3.5-5.0) g/dL HDL Cholesterol (40-60) mg/dL Urine Appearance (Clear) Urine Protein (Negative) Urine Blood (Negative) Ur Leukocyte Esterase (Negative) Urine WBC (0-5) /hpf Urine Bacteria (None) /hpf Hyaline Casts (0-2) /lpf 02/05/18 02/05/18 02/05/18 Range/Units 16:20 17:03 23:08 WBC (3.8-10.6) k/uL Hgb (11.4-16.0) gm/dL MCH (25.0-35.0) pg MCHC (31.0-37.0) g/dL RDW (11.5-15.5) % Plt Count (150-450) k/uL Neutrophils # (1.3-7.7) k/uL Sodium (137-145) mmol/L Potassium (3.5-5.1) mmol/L BUN (7-17) mg/dL Creatinine (0.52-1.04) mg/dL Glucose (74-99) mg/dL POC Glucose (mg/dL) (75-99) mg/dL Calcium (8.4-10.2) mg/dL AST (14-36) U/L Alkaline Phosphatase (38-126) U/L Troponin I 0.122 H* (0.000-0.034) ng/mL Total Protein (6.3-8.2) g/dL Albumin (3.5-5.0) g/dL HDL Cholesterol 18 L (40-60) mg/dL Urine Appearance Cloudy H (Clear) Urine Protein 1+ H (Negative) Urine Blood Small H (Negative) Ur Leukocyte Esterase Large H (Negative) Urine WBC >182 H (0-5) /hpf Urine Bacteria Moderate H (None) /hpf Hyaline Casts 4 H (0-2) /lpf 02/06/18 02/06/18 02/06/18 Range/Units 05:20 05:20 12:00 WBC (3.8-10.6) k/uL Hgb (11.4-16.0) gm/dL MCH (25.0-35.0) pg MCHC (31.0-37.0) g/dL RDW (11.5-15.5) % Plt Count (150-450) k/uL Neutrophils # (1.3-7.7) k/uL Sodium 133 L (137-145) mmol/L Potassium (3.5-5.1) mmol/L BUN 34 H (7-17) mg/dL Creatinine 1.24 H (0.52-1.04) mg/dL Glucose (74-99) mg/dL POC Glucose (mg/dL) 145 H (75-99) mg/dL Calcium 12.0 H (8.4-10.2) mg/dL AST (14-36) U/L Alkaline Phosphatase (38-126) U/L Troponin I 0.134 H* (0.000-0.034) ng/mL Total Protein (6.3-8.2) g/dL Albumin (3.5-5.0) g/dL HDL Cholesterol (40-60) mg/dL Urine Appearance (Clear) Urine Protein (Negative) Urine Blood (Negative) Ur Leukocyte Esterase (Negative) Urine WBC (0-5) /hpf Urine Bacteria (None) /hpf Hyaline Casts (0-2) /lpf Microbiology - Last 24 Hours (Table) 02/05/18 14:15 Gram Stain - Preliminary Ascites Fluid Body Fluid Culture - Preliminary 02/05/18 14:15 Anaerobic Culture - Preliminary Ascites Fluid Thrombosis Risk Factor Assmnt - Choose All That Apply Each Risk Factor Represents 3 Points: Age 75 years or older Thrombosis Risk Factor Assessment Total Risk Factor Score: 3 Thrombosis Risk Factor Assessment Level: Moderate Risk Assessment and Plan Plan: -Possible urinary tract infection patient does have leukocytosis, with abnormal uterine patient is on Rocephin as mentioned above -Possible right middle lobe pneumonia patient is on Rocephin and azithromycin, and cultures will be obtained urine cultures were ordered as well. Patient doesn't have any fever at this time -Hyperkalemia mostly secondary to hemolysis holding off on losartan and and Aldactone. -Hyperlipidemia -Carotid artery disease with recent CABG -Acute renal failure her creatinine is 1.1 secondary to hypotension and anti- happens medications which will be held as mentioned above Coreg will be continued. Patient was started on IV fluids patient has very low body mass her normal creatinine should be around 0.2-0.3 -Hyperlipidemia -Mildly elevated troponin secondary to renal dysfunction patient doesn't have any chest pain was evaluated by cardiology echocardiac exam is being obtained -Hypertension patient blood pressures in the low normal side and and imbued his medications are being held because of above-mentioned reasons -History of mitral valve repair recently
--- NOTE | 2018-02-06 13:32 | P.CNPUL ---
History of Present Illness Consult date: 02/06/18 Reason for consult: dyspnea, cough, other Chief complaint: Generalized weakness, weight loss, lightheadedness, dizziness History of present illness: This is a 77-year-old white female patient of Dr. Alia giordano, who presented to the emergency department on 02/05/2018 at 1500 for evaluation of increasing generalized weakness, lightheadedness, dizziness. Patient had a three-vessel coronary artery bypass grafting, with DESOUZA to the LAD, reverse SVG to the RCA, and OM, and mitral valve repair and left atrial appendage exclusion on [address] Alvarez. Other medical history includes hypertension, hyperlipidemia, left breast cancer in 1989 with mastectomy with lymph node dissection followed by chemoradiation, and right breast cancer in 2007 with radiation, carotid artery disease status post left carotid endarterectomy, history of CVA, diabetes mellitus, nicotine dependence which is in remission. In the postoperative period patient had developed atrial fibrillation, currently in sinus rhythm. Patient also developed postoperative blood loss anemia, with the hemoglobin as low as 6.2 at the lowest, requiring blood transfusions. Her iron levels were found to be low, and patient did receive 2 iron transfusions. This admission her hemoglobin is 10.8. White count was 15.1 , platelet count is 687, sodium is 132, potassium is 5.5, anion gap was mildly elevated at 13.2, BUN was 39, creatinine was 1.4, alkaline phosphatase was 175, ALT was 50, AST was 85, proBNP was elevated at 9040, troponins were 0.142, 0.122 , and 0.134. Urinalysis showed small amount of blood, large leukocyte esterase , and WBCs. Patient denies any urinary symptoms.Denies any fever or chills. Denies any significant chest congestion, wheezing. No nausea or vomiting. No diarrhea. She has mild pretibial edema. Denied any chest pain, denied any hemoptysis or chest wall discomfort. Chest x-ray was taken and showed a mass present in the superior segment of right lower lobe or possibly right upper lobe showing approximately 4.7 cm and could be pleural based. No pneumothorax, there was smaller nodules present within the right lung, this was compared to the previous chest x-ray and were not seen there. There is a slight blunting of the left costophrenic angle. Today patient is seen in urination on selective care unit, she is resting comfortably in bed, in no significant distress, afebrile, room air pulse ox is 99%, hemodynamic was stable. Patient did have right thoracentesis on 07/31/2017 with drainage of 800 mL of pleural fluid, and the cultures were negative. No cytology was done. Review of Systems All systems: negative Constitutional: Denies chills, Denies fever Eyes: denies blurred vision, denies pain Ears, nose, mouth and throat: Denies headache, Denies sore throat Cardiovascular: Reports decreased exercise tolerance, Reports edema, Reports leg edema, Reports lightheadedness, Denies chest pain, Denies shortness of breath Respiratory: Denies cough Gastrointestinal: Denies abdominal pain, Denies diarrhea, Denies nausea, Denies vomiting Genitourinary: Denies dysuria, Denies hematuria Musculoskeletal: Denies myalgias Integumentary: Denies pruritus, Denies rash Neurological: Denies numbness, Denies weakness Psychiatric: Denies anxiety, Denies depression Endocrine: Denies fatigue, Denies weight change Past Medical History Past Medical History: Coronary Artery Disease (CAD), Cancer, CVA/TIA, Diabetes Mellitus, Hyperlipidemia, Hypertension Additional Past Medical History / Comment(s): Coronary artery disease, Hx TIA, hypertension, hyperlipidemia, lymphedema of the left upper extremity related to a previous breast surgery, Bilateral breast cancer with lt mastectomy., Radiation Right Breast., low iron- has received iron transfusions., pt had CABG with repair of Mitral Valve (July 2017). History of Any Multi-Drug Resistant Organisms: None Reported Past Surgical History: Breast Surgery, Cholecystectomy, Coronary Bypass/CABG Additional Past Surgical History / Comment(s): lt mastectomy with reconstruction with abdominal flap, carotid endarterectomy, Triple CABG with repair Mitral Valve (July 2017) Past Anesthesia/Blood Transfusion Reactions: No Reported Reaction Additional Past Anesthesia/Blood Transfusion Reaction / Comment(s): . Past Psychological History: No Psychological Hx Reported Smoking Status: Former smoker Past Alcohol Use History: Occasional Additional Past Alcohol Use History / Comment(s): smoked 15 years, 2 ppd ,quit 1987. Past Drug Use History: None Reported - Past Family History Father Family Medical History: Cancer Additional Family Medical History / Comment(s): colon cancer Daughter(s) Family Medical History: Cancer Additional Family Medical History / Comment(s): ovarian cancer Sister(s) Family Medical History: Coronary Artery Disease (CAD) Brother(s) Family Medical History: Coronary Artery Disease (CAD) Medications and Allergies Home Medications Medication Instructions Recorded Confirmed Type Cholecalciferol (Vitamin D3) 2,000 unit PO DAILY 07/05/17 02/05/18 History [Vitamin D3] Clopidogrel [Plavix] 75 mg PO DAILY 01/21/18 02/05/18 History Ferrous Sulfate [Iron] 325 mg PO DAILY 01/21/18 02/05/18 History Spironolactone [Aldactone] 25 mg PO DAILY 01/21/18 02/05/18 History Acetaminophen [Tylenol] 1,000 mg PO Q4-6H PRN 02/05/18 02/05/18 History Carvedilol [Coreg] 3.125 mg PO DAILY 02/05/18 02/05/18 History Losartan/Hydrochlorothiazide 1 tab PO DAILY 02/05/18 02/05/18 History [Losartan-Hctz 50-12.5 mg Tab] Pravastatin Sodium [Pravachol] 30 mg PO DAILY 02/05/18 02/05/18 History metFORMIN HCL [Glucophage] 1,000 mg PO BID 02/05/18 02/05/18 History Allergies Allergy/AdvReac Type Severity Reaction Status Date / Time lisinopril Allergy Severe Swelling Verified 02/05/18 16:39 rosuvastatin [From Crestor] AdvReac Severe muscle Verified 02/05/18 16:39 cramping/jt pain Sulfa (Sulfonamide AdvReac headache Verified 02/05/18 16:39 Antibiotics) Physical Exam Vitals: Vital Signs Temp Pulse Pulse Resp BP BP Pulse Ox 02/06/18 12:00 97 F L 81 16 105/51 99 02/06/18 09:40 97 F L 81 16 111/55 99 02/06/18 04:00 97.2 F L 83 18 122/50 99 02/06/18 00:00 97.5 F L 89 18 127/56 99 02/05/18 20:28 98.3 F 91 18 128/59 97 02/05/18 20:00 97.8 F 91 18 137/74 97 02/05/18 19:41 90 18 103/47 96 02/05/18 19:25 97.9 F 64 18 97 02/05/18 18:18 85 18 118/59 97 02/05/18 17:06 83 18 109/71 98 02/05/18 15:49 97.7 F 99 18 105/56 97 Intake and Output 02/05/18 02/06/18 02/06/18 22:59 06:59 14:59 Intake Total 480 480 170 Output Total 450 700 Balance 30 -220 170 Intake: IV 50 cefTRIAXone 1,000 mg In 50 Sodium Chloride 0.9% 50 ml @ 100 mls/hr IVPB ONCE STA Rx#:[id number] Oral 480 480 120 Output: Urine 450 700 Other: Voiding Method Bedpan Bedpan Bedpan # Voids 1 Weight 48.988 kg 48.2 kg GENERAL EXAM: Alert, pleasant, thin 77-year-old frail looking older female, comfortable in no apparent distress. HEAD: Normocephalic/atraumatic. EYES: Normal reaction of pupils, equal size. Conjunctiva pink, sclera white. NOSE: Clear with pink turbinates. THROAT: No erythema or exudates. NECK: No masses, no JVD, no thyroid enlargement, no adenopathy. CHEST: No chest wall deformity. Symmetrical expansion. LUNGS: Equal air entry with no crackles, wheeze, rhonchi or dullness. CVS: Regular rate and rhythm, normal S1 and S2, no gallops, no murmurs, no rubs ABDOMEN: Soft, nontender. No hepatosplenomegaly, normal bowel sounds, no guarding or rigidity. EXTREMITIES: No clubbing, mild pretibial edema no cyanosis, 2+ pulses and upper and lower extremities. MUSCULOSKELETAL: Muscle strength and tone normal. SPINE: No scoliosis or deformity SKIN: No rashes CENTRAL NERVOUS SYSTEM: Alert and oriented -3. No focal deficits, tone is normal in all 4 extremities. PSYCHIATRIC: Alert and oriented -3. Appropriate affect. Intact judgment and insight. Results - Laboratory Findings CBC and BMP: 02/05/18 16:20 02/06/18 05:20 Abnormal lab findings: Abnormal Labs 02/05/18 02/05/18 02/05/18 16:20 16:20 16:20 WBC 15.5 H Hgb 10.6 L MCH 24.8 L MCHC 27.9 L RDW 18.6 H Plt Count 617 H Neutrophils # 13.3 H Sodium 132 L Potassium 5.6 H BUN 36 H Creatinine 1.18 H Glucose 131 H POC Glucose (mg/dL) Calcium 12.8 H AST 95 H Alkaline Phosphatase 144 H Troponin I 0.142 H* Total Protein 5.6 L Albumin 2.7 L HDL Cholesterol Urine Appearance Urine Protein Urine Blood Ur Leukocyte Esterase Urine WBC Urine Bacteria Hyaline Casts 02/05/18 02/05/18 02/05/18 16:20 17:03 23:08 WBC Hgb MCH MCHC RDW Plt Count Neutrophils # Sodium Potassium BUN Creatinine Glucose POC Glucose (mg/dL) Calcium AST Alkaline Phosphatase Troponin I 0.122 H* Total Protein Albumin HDL Cholesterol 18 L Urine Appearance Cloudy H Urine Protein 1+ H Urine Blood Small H Ur Leukocyte Esterase Large H Urine WBC >182 H Urine Bacteria Moderate H Hyaline Casts 4 H 02/06/18 02/06/18 02/06/18 05:20 05:20 12:00 WBC Hgb MCH MCHC RDW Plt Count Neutrophils # Sodium 133 L Potassium BUN 34 H Creatinine 1.24 H Glucose POC Glucose (mg/dL) 145 H Calcium 12.0 H AST Alkaline Phosphatase Troponin I 0.134 H* Total Protein Albumin HDL Cholesterol Urine Appearance Urine Protein Urine Blood Ur Leukocyte Esterase Urine WBC Urine Bacteria Hyaline Casts - Diagnostic Findings Chest x-ray: report reviewed, image reviewed Additional studies: EKG reviewed, previous pleural fluid cultures reviewed Assessment and Plan Plan: Assessment: #1. Weakness, dizziness, weight loss and the etiology could include a possibility of malignancy. Chest x-ray revealed a new right upper lobe mass, and new nodularity within the right lung not previously seen on the chest x- rays from September 2017. Community-acquired pneumonia could also be in the differential and we will cover the patient with empiric antibiotics #2. Leukocytosis #3. Urinary tract infection versus asymptomatic bacteriuria #4. Elevated troponins #5. Elevated proBNP of 9040, suggesting possibility of acute congestive heart failure, but clinically patient's volume status does not seem to be overloaded at this time #6. Acute kidney injury #7. Mild hyponatremia #8. Coronary artery disease, severe mitral valve regurgitation, status post three-vessel coronary artery bypass grafting, with DESOUZA to LAD, reverse SVG to the RCA and OM, and mitral valve repair with exclusion of left atrial appendage , on 07/24/2017. Patient had postoperative A. fib, blood loss anemia requiring blood transfusions, small biapical pneumothoraces, and right sided pleural effusion requiring right-sided thoracentesis with drainage of 800 mL of pleural fluid, and the pleural fluid cultures were negative, no cytology was done. #9. History of left breast cancer in 1989 with ostectomy and lymph node resection, followed by chemoradiation, and chronic left arm lymphedema, history of right-sided breast cancer in 2007 that is post radiation. #10. Diabetes mellitus type 2 #11. Hypertension, hyperlipidemia #12. History of CVA #13. Carotid artery stenosis, status post left carotid endarterectomy Plan: We will initiate the patient on Zithromax and Rocephin, we'll give the patient a dose of IV Lasix, we'll repeat chest x-ray in the morning. We will obtain echocardiogram, blood cultures have been sent. We may have to proceed with a CT chest possibly tomorrow. For now patient remains fairly comfortable, no acute distress, denies any worsening shortness of breath, no chest pain, she is afebrile. We will continue to follow I performed a history & physical examination of the patient and discussed their management with my nurse practitioner, Lizzeth Nunes. I reviewed the nurse practitioner's note and agree with the documented findings and plan of care. Lung sounds are positive for clear lungs. The findings and the impression was discussed with the patient. I attest to the documentation by the nurse practitioner. Time with Patient: Greater than 30
--- NOTE | 2018-02-06 15:28 | P.CONS ---
History of Present Illness - Reason for Consult Consult date: 02/06/18 HX: Breast Cancer, Pulmonary Concern, Anemia Requesting physician: Greg Ruelas - Chief Complaint Shortness of breath - History of Present Illness This a very nice 77 years old lady who was found to have suspicious abnormality in her right breast on mammography which led to a biopsy confirming invasive lobular carcinoma.She had a lumpectomy and sentinel node biospy in May,.She had a left breast carcinoma in 1994,she received neoadjuvant chemotherapy followed by left mastectomy and radiation and 5 years of adjuvant Tamoxifen. Her BRCA testing were negative. She completed adjuvant radiation therapy on 07/10/2011.She started taking arimidex in ,she took for about 4 years,through her PCP, On 01/01/2018: She was referred back to Dr. Asencio due to persistent significant microcytic anemia,associated with thrombocytosis and leukocytosis. She had cardiac bypass surgery in July/2017,prior to her surgery,her CBC revealed hemoglobin of 11.5gm/dl,MCV 76.4,normal total wbc and platelets counts, also on 12/18/2015,her CBC showed hemoglobin of 9.1gm/dl,MCV 79.3,normal platelets counts.After her cardiac bypass in July/2017,CBC on 07/26/2017 revealed hemoglobin down to 6.4gm/dl,repeat CBC on 08/03/2017 revealed hemoglobin of 8.5gm/dl,MCV 90.6,total wbc of 15.3K with neutrophilia,platelets counts of 597K,normal CMP,repeat CBC on 11/06/2017 revealed hemoglobin of 9.5gm/ dl,MCV 73.3,platelets counts of 638K,total wbc of 11.2K with neutrophilia. She has been on oral iron supplement for few months now,she has lost 20 pounds since March/2017,she had diarrhea for 2 months after her surgery,now her stool is more solid but black since she started oral iron. She also has been on oral plavix and aspirin. Her last colonoscopy was over 10 years ago,she also has not had mammograms in over 2 years On 01/29/2018: She recieved feraheme earlier this month for severe iron deficiency (likely related to plavix and aspirin)and her hemoglobin significantly improved. She was referred to Dr Joanne Up for GI work up,however,her data virtualization consultant recommended to wait until 07/2018 in order to be able to hold her plavix. 02/06/18: She now presents to [facility] emergency department on 02/05/2018 for evaluation of increasing generalized weakness, lightheadedness, dizziness. In addition to medical history above includes; hypertension, hyperlipidemia, carotid artery disease status post left carotid endarterectomy, history of CVA, diabetes mellitus, nicotine dependence which is in remission, Atrial Fibrillation (currently sinus). A Chest Xray in Emergency was completed and revealed presence of a mass in the superior segment of right lower lobe or possibly right upper lobe showing approximately 4.7 cm and could be pleural based. No pneumothorax, there was smaller nodules present within the right lung, this was compared to the previous chest x-ray and were not seen there. She did undergo a right thoracentesis on 07/31/2017 with drainage of 800 mL of pleural fluid, and the cultures were negative. No cytology was done at that time. Her renal function is mildly elevated at this time, therefore further assessment with CT scan is not advised. . She was evaluated by pulmonology who feel as if the new chest xray findings could also be differential of pneumonia and she was started on IV antibiotics. She denies any acute complaints at this time. Family is at bedside during evaluation. Review of Systems A 14 point review of systems was assessed and completed and all negative except HPI. Past Medical History Past Medical History: Coronary Artery Disease (CAD), Cancer, CVA/TIA, Diabetes Mellitus, Hyperlipidemia, Hypertension Additional Past Medical History / Comment(s): Coronary artery disease, Hx TIA, hypertension, hyperlipidemia, lymphedema of the left upper extremity related to a previous breast surgery, Bilateral breast cancer with lt mastectomy., Radiation Right Breast., low iron- has received iron transfusions., pt had CABG with repair of Mitral Valve (July 2017). History of Any Multi-Drug Resistant Organisms: None Reported Past Surgical History: Breast Surgery, Cholecystectomy, Coronary Bypass/CABG Additional Past Surgical History / Comment(s): lt mastectomy with reconstruction with abdominal flap, carotid endarterectomy, Triple CABG with repair Mitral Valve (July 2017) Past Anesthesia/Blood Transfusion Reactions: No Reported Reaction Additional Past Anesthesia/Blood Transfusion Reaction / Comm: . Past Psychological History: No Psychological Hx Reported Smoking Status: Former smoker Past Alcohol Use History: Occasional Additional Past Alcohol Use History / Comment(s): smoked 15 years, 2 ppd ,quit 1987. Past Drug Use History: None Reported - Past Family History Father Family Medical History: Cancer Additional Family Medical History / Comment(s): colon cancer Daughter(s) Family Medical History: Cancer Additional Family Medical History / Comment(s): ovarian cancer Sister(s) Family Medical History: Coronary Artery Disease (CAD) Brother(s) Family Medical History: Coronary Artery Disease (CAD) Medications and Allergies Home Medications Medication Instructions Recorded Confirmed Type Cholecalciferol (Vitamin D3) 2,000 unit PO DAILY 07/05/17 02/05/18 History [Vitamin D3] Clopidogrel [Plavix] 75 mg PO DAILY 01/21/18 02/05/18 History Ferrous Sulfate [Iron] 325 mg PO DAILY 01/21/18 02/05/18 History Spironolactone [Aldactone] 25 mg PO DAILY 01/21/18 02/05/18 History Acetaminophen [Tylenol] 1,000 mg PO Q4-6H PRN 02/05/18 02/05/18 History Carvedilol [Coreg] 3.125 mg PO DAILY 02/05/18 02/05/18 History Losartan/Hydrochlorothiazide 1 tab PO DAILY 02/05/18 02/05/18 History [Losartan-Hctz 50-12.5 mg Tab] Pravastatin Sodium [Pravachol] 30 mg PO DAILY 02/05/18 02/05/18 History metFORMIN HCL [Glucophage] 1,000 mg PO BID 02/05/18 02/05/18 History Allergies Allergy/AdvReac Type Severity Reaction Status Date / Time lisinopril Allergy Severe Swelling Verified 02/05/18 16:39 rosuvastatin [From Crestor] AdvReac Severe muscle Verified 02/05/18 16:39 cramping/jt pain Sulfa (Sulfonamide AdvReac headache Verified 02/05/18 16:39 Antibiotics) Physical Exam Vitals: Vital Signs Temp Pulse Pulse Resp BP BP Pulse Ox 02/06/18 12:00 97 F L 81 16 105/51 99 02/06/18 09:40 97 F L 81 16 111/55 99 02/06/18 04:00 97.2 F L 83 18 122/50 99 02/06/18 00:00 97.5 F L 89 18 127/56 99 02/05/18 20:28 98.3 F 91 18 128/59 97 02/05/18 20:00 97.8 F 91 18 137/74 97 02/05/18 19:41 90 18 103/47 96 02/05/18 19:25 97.9 F 64 18 97 02/05/18 18:18 85 18 118/59 97 02/05/18 17:06 83 18 109/71 98 02/05/18 15:49 97.7 F 99 18 105/56 97 Intake and Output 02/05/18 02/06/18 02/06/18 22:59 06:59 14:59 Intake Total 480 480 170 Output Total 450 700 Balance 30 -220 170 Intake: IV 50 cefTRIAXone 1,000 mg In 50 Sodium Chloride 0.9% 50 ml @ 100 mls/hr IVPB ONCE STA Rx#:[id number] Oral 480 480 120 Output: Urine 450 700 Other: Voiding Method Bedpan Bedpan Bedpan # Voids 1 Weight 48.988 kg 48.2 kg - Constitutional General appearance: cooperative, no acute distress, thin - EENT Eyes: EOMI, PERRLA, dentition normal ENT: hard of hearing, NA/AT, normal oropharynx - Neck Supple, trachea midline. Neck: normal ROM - Respiratory Respiratory: bilateral: diminished, wheezing (Expiratory) - Cardiovascular Rhythm: regular Heart sounds: normal: S1, S2 - Gastrointestinal General gastrointestinal: normal bowel sounds, soft - Integumentary Integumentary: pale - Neurologic Neurologic: CNII-XII intact - Musculoskeletal Musculoskeletal: generalized weakness, strength equal bilaterally - Psychiatric Psychiatric: A&O x's 3, appropriate affect, intact judgment & insight Results CBC & Chem 7: 02/05/18 16:20 02/06/18 05:20 Labs: Abnormal Lab Results - Last 24 Hours (Table) 02/05/18 02/05/18 02/05/18 Range/Units 16:20 16:20 16:20 WBC 15.5 H (3.8-10.6) k/uL Hgb 10.6 L (11.4-16.0) gm/dL MCH 24.8 L (25.0-35.0) pg MCHC 27.9 L (31.0-37.0) g/dL RDW 18.6 H (11.5-15.5) % Plt Count 617 H (150-450) k/uL Neutrophils # 13.3 H (1.3-7.7) k/uL Sodium 132 L (137-145) mmol/L Potassium 5.6 H (3.5-5.1) mmol/L BUN 36 H (7-17) mg/dL Creatinine 1.18 H (0.52-1.04) mg/dL Glucose 131 H (74-99) mg/dL POC Glucose (mg/dL) (75-99) mg/dL Calcium 12.8 H (8.4-10.2) mg/dL AST 95 H (14-36) U/L Alkaline Phosphatase 144 H (38-126) U/L Troponin I 0.142 H* (0.000-0.034) ng/mL Total Protein 5.6 L (6.3-8.2) g/dL Albumin 2.7 L (3.5-5.0) g/dL HDL Cholesterol (40-60) mg/dL Urine Appearance (Clear) Urine Protein (Negative) Urine Blood (Negative) Ur Leukocyte Esterase (Negative) Urine WBC (0-5) /hpf Urine Bacteria (None) /hpf Hyaline Casts (0-2) /lpf 02/05/18 02/05/18 02/05/18 Range/Units 16:20 17:03 23:08 WBC (3.8-10.6) k/uL Hgb (11.4-16.0) gm/dL MCH (25.0-35.0) pg MCHC (31.0-37.0) g/dL RDW (11.5-15.5) % Plt Count (150-450) k/uL Neutrophils # (1.3-7.7) k/uL Sodium (137-145) mmol/L Potassium (3.5-5.1) mmol/L BUN (7-17) mg/dL Creatinine (0.52-1.04) mg/dL Glucose (74-99) mg/dL POC Glucose (mg/dL) (75-99) mg/dL Calcium (8.4-10.2) mg/dL AST (14-36) U/L Alkaline Phosphatase (38-126) U/L Troponin I 0.122 H* (0.000-0.034) ng/mL Total Protein (6.3-8.2) g/dL Albumin (3.5-5.0) g/dL HDL Cholesterol 18 L (40-60) mg/dL Urine Appearance Cloudy H (Clear) Urine Protein 1+ H (Negative) Urine Blood Small H (Negative) Ur Leukocyte Esterase Large H (Negative) Urine WBC >182 H (0-5) /hpf Urine Bacteria Moderate H (None) /hpf Hyaline Casts 4 H (0-2) /lpf 02/06/18 02/06/18 02/06/18 Range/Units 05:20 05:20 12:00 WBC (3.8-10.6) k/uL Hgb (11.4-16.0) gm/dL MCH (25.0-35.0) pg MCHC (31.0-37.0) g/dL RDW (11.5-15.5) % Plt Count (150-450) k/uL Neutrophils # (1.3-7.7) k/uL Sodium 133 L (137-145) mmol/L Potassium (3.5-5.1) mmol/L BUN 34 H (7-17) mg/dL Creatinine 1.24 H (0.52-1.04) mg/dL Glucose (74-99) mg/dL POC Glucose (mg/dL) 145 H (75-99) mg/dL Calcium 12.0 H (8.4-10.2) mg/dL AST (14-36) U/L Alkaline Phosphatase (38-126) U/L Troponin I 0.134 H* (0.000-0.034) ng/mL Total Protein (6.3-8.2) g/dL Albumin (3.5-5.0) g/dL HDL Cholesterol (40-60) mg/dL Urine Appearance (Clear) Urine Protein (Negative) Urine Blood (Negative) Ur Leukocyte Esterase (Negative) Urine WBC (0-5) /hpf Urine Bacteria (None) /hpf Hyaline Casts (0-2) /lpf Microbiology - Last 24 Hours (Table) 02/05/18 14:15 Gram Stain - Preliminary Ascites Fluid Body Fluid Culture - Preliminary 02/05/18 14:15 Anaerobic Culture - Preliminary Ascites Fluid Chest x-ray: report reviewed Assessment and Plan Plan: Assessment and Recommendations: 1. New Right Upper Lobe Nodularity, RUL Mass (Not previously apprciated on prior diagnstics): - Differentials include metastatic recurrent or new primary Malignancy versus Infectious or community acquired pneumonia - IV antibiotics initiated per pulmonary and possible further evaluation with CT scan tomorrow. - Oncology agree with this plan 2. HX: Left Breast Cancer in 1989 and Right Breast Cancer in 2007 - BRCA testing Negative 3. HX: CVA 4. HX: CAD status post CABG with Stenting in July 2017 5. Acute Renal Insufficiency 6. Normocytic Anemia - Improved from previously. - Status Post 2 IV Farahemes in early January 2018 Thank you for allowing us to participate in the care of this patient we will follow along with you.
[2018-02-06 16:34] LABS: Glucose,Whole Blood 109 mg/dL (75-99)
--- NOTE | 2018-02-06 17:12 | ECHOF ---
Referral Reason:chest pain MEASUREMENTS -------- HEIGHT: 157.5 cm WEIGHT: 48.1 kg BP: IVSd: 1.3 cm (0.6 - 1.1) LVIDd: 3.9 cm (3.9 - 5.3) LVPWd: 1.3 cm (0.6 - 1.1) IVSs: 2.0 cm LVIDs: 1.8 cm LVPWs: 1.7 cm Ao Diam: 3.0 cm (2.0 - 3.7) AV Cusp: 1.3 cm (1.5 - 2.6) LA Diam: 3.4 cm (2.7 - 3.8) MV EXCURSION: 13.189 mm (> 18.000) MV EF SLOPE: 27 mm/s (70 - 150) EPSS: 0.8 cm MV E Loki: 1.01 m/s MV DecT: 274 ms MV A Loki: 1.02 m/s MV E/A Ratio: 0.99 AR PHT: 465 ms RAP: 5.00 mmHg RVSP: 9.13 mmHg FINDINGS -------- Sinus rhythm. This was a technically difficult study with suboptimal views. The left ventricular size is normal. There is mild concentric left ventricular hypertrophy. Overa ll left ventricular systolic function is mild-moderately impaired with, an EF between 40 - 45 %. Ba daniel inferior LV wall motion is hypokinetic. Mid inferior LV wall motion is hypokinetic. The right ventricle is normal in size and function. The left atrium is normal in size. The right atrium is normal in size. Lumason used There is mild aortic valve sclerosis. There is aqrh-mt-izauztqh aortic regurgitation. The mitral valve leaflets are mildly thickened. Lnjv-wz-btgiemps mitral regurgitation is present. MV Repair. Mild tricuspid regurgitation present. There is no evidence of pulmonary hypertension. The right v entricular systolic pressure, as measured by Doppler, is 9.13mmHg. There is no pulmonic regurgitation present. The aortic root size is normal. There is no pericardial effusion. CONCLUSIONS -------- 1. Sinus rhythm. 2. This was a technically difficult study with suboptimal views. 3. The left ventricular size is normal. 4. There is mild concentric left ventricular hypertrophy. 5. Overall left ventricular systolic function is mild-moderately impaired with, an EF between 40 - 45 %. 6. Basal inferior LV wall motion is hypokinetic. 7. Mid inferior LV wall motion is hypokinetic. 8. The left atrium is normal in size. 9. Lumason used 10. There is mild aortic valve sclerosis. 11. There is goya-ri-mkcysfin aortic regurgitation. 12. The mitral valve leaflets are mildly thickened. 13. Jdkh-lt-svzfconi mitral regurgitation is present. 14. MV Repair. 15. Mild tricuspid regurgitation present. 16. There is no evidence of pulmonary hypertension. 17. There is no pulmonic regurgitation present. 18. The aortic root size is normal. 19. There is no pericardial effusion. TRANSITION PROGRAM MANAGER: Bernadette Thomson RDCS
[2018-02-06 20:45] LABS: Glucose,Whole Blood 101 mg/dL (75-99)
[2018-02-07] MEDS: ACETAMINOPHEN TAB 500 MG TAB PO PRN ×2 (00:03→20:54)
[2018-02-07 06:16] LABS: Glucose,Whole Blood 83 mg/dL (75-99)
[2018-02-07 06:17] LABS: Anisocytosis Slight; Basophils % (A) 0 %; Eosinophils # (A) 0.2 k/uL (0-0.7); Eosinophils % (A) 2 %; HCT 33.5 % (34.0-46.0); HGB 9.7 gm/dL (11.4-16.0); Hypochromasia Marked; Lymphocytes # (A) 1.3 k/uL (1.0-4.8); Lymphocytes % (A) 9 %; MCH 25.2 pg (25.0-35.0); MCHC 28.8 g/dL (31.0-37.0); MCV 87.3 fL (80.0-100.0); Mean Platelet Volume 7.2; Monocytes # (A) 0.7 k/uL (0-1.0); Monocytes % (A) 5 %; Neutrophils # (A) 11.1 k/uL (1.3-7.7); Neutrophils % (A) 83 %; Platelet Count 551 k/uL (150-450); RBC 3.84 m/uL (3.80-5.40); RDW 18.6 % (11.5-15.5); WBC 13.4 k/uL (3.8-10.6)
[2018-02-07] MEDS: INSULIN ASPART 100 UNIT/ML 1 ML 10 ML VIAL SQ SCH ×4 (06:27→20:55)
[2018-02-07 06:34] LABS: Calcium 12.1 mg/dL (8.4-10.2); Potassium 4.7 mmol/L (3.5-5.1)
--- NOTE | 2018-02-07 08:38 | XR ---
EXAMINATION TYPE: XR chest 1V DATE OF EXAM: 02/07/2018 COMPARISON: 02/05/2018 HISTORY: Cough TECHNIQUE: Single frontal view of the chest is obtained. FINDINGS: Multiple pulmonary masses are again noted. Postsurgical changes seen in the heart size is stable. There are small bilateral effusions and basilar consolidation. No pneumothorax. IMPRESSION: 1. Multiple pulmonary masses 2. Stable bilateral consolidation and pleural effusion.
[2018-02-07] MEDS: CHOLECALCIFEROL 1,000 UNIT TAB PO SCH (10:16)
[2018-02-07] MEDS: AZITHROMYCIN 500 MG TAB PO SCH (10:16)
[2018-02-07] MEDS: CLOPIDOGREL 75 MG TAB PO SCH (10:17)
[2018-02-07] MEDS: FERROUS SULFATE 325 MG TAB PO SCH (10:17)
[2018-02-07] MEDS: CARVEDILOL 3.125 MG TAB PO SCH (10:17)
[2018-02-07] MEDS: HEPARIN SODIUM,PORCINE 5,000 UNIT/ML 1 ML VIAL SQ SCH ×2 (10:17→20:55)
[2018-02-07] MEDS: PRAVASTATIN SODIUM 20 MG TAB PO SCH ×3 (10:17→20:55)
[2018-02-07] MEDS: SODIUM CHLORIDE 0.9% 1,000 ML IV SCH (10:18)
--- NOTE | 2018-02-07 11:39 | CDI ---
Last Revision, April 2017 Documentation Clarification Form Date: 02/07/2018 11:17:10 AM From: Danna Granda RN, CCDS Admit Date: 02/05/2018 6:47:00 PM Patient Name: Breana Lara Visit Number: [id number] ATTENTION: The Clinical Documentation Specialists (CDI) and [facility] Coding Staff appreciate your assistance in clarifying documentation. Please respond to the clarification below the line at the bottom and electronically sign. The CDI & [facility] Coding staff will review the response and follow-up if needed. Please note: Queries are made part of the Legal Health Record. If you have any questions, please contact the author of this message via ITS. Sadia Montana MD A diagnosis of normocytic and microcytic anemia lacks specificity to accurately reflect your patients severity of condition and clarification is needed. History/Risk Factors: Anemia, CABG w/ Valve, CAD, DM, HTN Clinical indicators: 02/06 Oncology Consult: "On 01/01/2018: She was referred back to Dr. Asencio due to persistent significant microcytic anemia, associated with thrombocytosis and leukocytosis. Normocytic Anemia - Improved from previously. " 02/05 Ed Note: "history of anemia who is required to iron infusions recently history of bypass surgery and valve surgery's test year who complains today of weakness is getting worse slight weight loss feels lightheaded and dizzy when she tries to walk no nausea vomiting fevers chills or sweats he apparently was recently diagnosed with UTI." Hemoglobin: 10.6/9.7 Hematocrit: 38/33.5 Treatment: Lab monitoring Feosol 325 mg Po QD In order to capture the severity of condition, please clarify the type of anemia and etiology if known: Acute on chronic blood loss anemia Chronic blood loss anemia Iron deficiency anemia Anemia of chronic disease Nutritional anemia Anemia of chronic kidney disease Unable to determine Other, please specify Please continue to document in your progress notes and discharge summary in order to capture severity of illness and risk of mortality. Include clinical findings that support your diagnosis. Unable to determine MTDD
[2018-02-07 11:45] LABS: Glucose,Whole Blood 116 mg/dL (75-99)
--- NOTE | 2018-02-07 12:17 | CT ---
EXAMINATION TYPE: CT chest wo con DATE OF EXAM: 02/07/2018 COMPARISON: Chest x-ray 02/07/[address] 05/04/2012 HISTORY: Cough CT DLP: 220.2 mGycm. Automated Exposure Control for Dose Reduction was Utilized. TECHNIQUE: CT scan of the thorax is performed without IV contrast. FINDINGS: Question prior mastectomy on the left. LUNGS: Multiple lung masses are present bilaterally. Largest in the right upper lobe measures 4.5 cm and is adjacent to the pleura the superior segment of the right lower lobe. There are approximately 2 0-30 lesions. Areas of scarring, emphysema are again noted. There is a left pleural effusion. Right p leural effusion has resolved. MEDIASTINUM: Lack of IV contrast is noted to limit evaluation for mediastinal and especially hilar ad enopathy. There are no definitive greater than 1 cm hilar or mediastinal lymph nodes. No cardiomega ly or pericardial effusion is seen. OTHER: The liver is heterogeneous in density. Liver is enlarged. Suspect underlying masses. Patient i s post median sternotomy. Extensive coronary artery calcifications are present. There may be retroper itoneal adenopathy. IMPRESSION: Findings compatible with metastatic disease.
--- NOTE | 2018-02-07 13:53 | P.PN ---
Subjective Progress Note Date: 02/07/18 Principal diagnosis: Nodular densities, right upper lobe mass, rule out malignancy This is a 77-year-old white female patient of Dr. Alia giordano, who presented to the emergency department on 02/05/2018 at 1500 for evaluation of increasing generalized weakness, lightheadedness, dizziness. Patient had a three-vessel coronary artery bypass grafting, with DESOUZA to the LAD, reverse SVG to the RCA, and OM, and mitral valve repair and left atrial appendage exclusion on [address] Alvarez. Other medical history includes hypertension, hyperlipidemia, left breast cancer in 1989 with mastectomy with lymph node dissection followed by chemoradiation, and right breast cancer in 2007 with radiation, carotid artery disease status post left carotid endarterectomy, history of CVA, diabetes mellitus, nicotine dependence which is in remission. In the postoperative period patient had developed atrial fibrillation, currently in sinus rhythm. Patient also developed postoperative blood loss anemia, with the hemoglobin as low as 6.2 at the lowest, requiring blood transfusions. Her iron levels were found to be low, and patient did receive 2 iron transfusions. This admission her hemoglobin is 10.8. White count was 15.1 , platelet count is 687, sodium is 132, potassium is 5.5, anion gap was mildly elevated at 13.2, BUN was 39, creatinine was 1.4, alkaline phosphatase was 175, ALT was 50, AST was 85, proBNP was elevated at 9040, troponins were 0.142, 0.122 , and 0.134. Urinalysis showed small amount of blood, large leukocyte esterase , and WBCs. Patient denies any urinary symptoms.Denies any fever or chills. Denies any significant chest congestion, wheezing. No nausea or vomiting. No diarrhea. She has mild pretibial edema. Denied any chest pain, denied any hemoptysis or chest wall discomfort. Chest x-ray was taken and showed a mass present in the superior segment of right lower lobe or possibly right upper lobe showing approximately 4.7 cm and could be pleural based. No pneumothorax, there was smaller nodules present within the right lung, this was compared to the previous chest x-ray and were not seen there. There is a slight blunting of the left costophrenic angle. Today patient is seen in urination on selective care unit, she is resting comfortably in bed, in no significant distress, afebrile, room air pulse ox is 99%, hemodynamic was stable. Patient did have right thoracentesis on 07/31/2017 with drainage of 800 mL of pleural fluid, and the cultures were negative. No cytology was done. On 02/07/2018 patient seen in follow-up on selective care unit. Breathing has not much improved, yesterday we gave patient a dose of Lasix, net fluid balance is difficult to estimate as there was no accurate I and O's recorded. Patient' s weight has actually increased according to the recorded weights. No fever or chills, patient has been started on Zithromax and Rocephin, and today's chest x- ray showed multiple lung masses bilaterally, with the largest in the right upper lobe, and areas of nodular lesions. Right pleural effusion has resolved. CT of the chest without contrast was obtained, and showed multiple lung masses bilaterally, with the largest right upper lobe measuring 4.5 cm and adjacent to the pleura in the superior segment of the right lower lobe. There is approximately 20-30 lesions, areas of scarring, there were no definitive greater than 1 cm hilar or mediastinal lymph nodes, however the CAT scan was done without contrast. Objective - Vital Signs Vital signs: Vital Signs Temp 97.3 F L 02/07/18 04:00 Pulse 82 02/07/18 08:00 Resp 16 02/07/18 08:00 BP 128/59 02/07/18 04:00 Pulse Ox 98 02/07/18 04:00 Intake & Output 02/06/18 02/07/18 02/07/18 18:59 06:59 18:59 Intake Total 410 480 240 Output Total 0 Balance 410 480 240 Weight 50.7 kg Intake: IV 50 cefTRIAXone 1,000 mg In 50 Sodium Chloride 0.9% 50 ml @ 100 mls/hr IVPB ONCE STA Rx#:[id number] Oral 360 480 240 Output: Urine 0 Other: Voiding Method Toilet Toilet Toilet # Voids 1 2 # Bowel Movements 0 - Exam GENERAL EXAM: Alert, pleasant, thin 77-year-old frail looking older female, comfortable in no apparent distress. HEAD: Normocephalic/atraumatic. EYES: Normal reaction of pupils, equal size. Conjunctiva pink, sclera white. NOSE: Clear with pink turbinates. THROAT: No erythema or exudates. NECK: No masses, no JVD, no thyroid enlargement, no adenopathy. CHEST: No chest wall deformity. Symmetrical expansion. LUNGS: Equal air entry with no crackles, wheeze, rhonchi or dullness. CVS: Regular rate and rhythm, normal S1 and S2, no gallops, no murmurs, no rubs ABDOMEN: Soft, nontender. No hepatosplenomegaly, normal bowel sounds, no guarding or rigidity. EXTREMITIES: No clubbing, mild pretibial edema no cyanosis, 2+ pulses and upper and lower extremities. MUSCULOSKELETAL: Muscle strength and tone normal. SPINE: No scoliosis or deformity SKIN: No rashes CENTRAL NERVOUS SYSTEM: Alert and oriented -3. No focal deficits, tone is normal in all 4 extremities. PSYCHIATRIC: Alert and oriented -3. Appropriate affect. Intact judgment and insight. - Labs CBC & Chem 7: 02/07/18 05:53 02/07/18 05:53 Labs: Abnormal Lab Results - Last 24 Hours (Table) 02/06/18 02/06/18 02/07/18 Range/Units 16:24 20:42 05:53 WBC 13.4 H (3.8-10.6) k/uL Hgb 9.7 L (11.4-16.0) gm/dL Hct 33.5 L (34.0-46.0) % MCHC 28.8 L (31.0-37.0) g/dL RDW 18.6 H (11.5-15.5) % Plt Count 551 H (150-450) k/uL Neutrophils # 11.1 H (1.3-7.7) k/uL Sodium (137-145) mmol/L Carbon Dioxide (22-30) mmol/L BUN (7-17) mg/dL Creatinine (0.52-1.04) mg/dL POC Glucose (mg/dL) 109 H 101 H (75-99) mg/dL Calcium (8.4-10.2) mg/dL 02/07/18 02/07/18 Range/Units 05:53 11:27 WBC (3.8-10.6) k/uL Hgb (11.4-16.0) gm/dL Hct (34.0-46.0) % MCHC (31.0-37.0) g/dL RDW (11.5-15.5) % Plt Count (150-450) k/uL Neutrophils # (1.3-7.7) k/uL Sodium 132 L (137-145) mmol/L Carbon Dioxide 21 L (22-30) mmol/L BUN 35 H (7-17) mg/dL Creatinine 1.15 H (0.52-1.04) mg/dL POC Glucose (mg/dL) 116 H (75-99) mg/dL Calcium 12.1 H (8.4-10.2) mg/dL Microbiology - Last 24 Hours (Table) 02/05/18 18:41 Blood Culture - Preliminary Blood No Growth after 24 hours 02/05/18 14:15 Gram Stain - Preliminary Ascites Fluid Body Fluid Culture - Preliminary Assessment and Plan Plan: Assessment: #1. Right upper lobe mass, multiple nodular area bilaterally, possibly related to metastatic or new primary malignancy. Pt presented with weakness, dizziness, weight loss. Chest x-ray revealed a new right upper lobe mass, and new nodularity within the right lung not previously seen on the chest x-rays from September 2017. CT chest showed multiple areas of lung masses bilaterally, with the largest in the right upper lobe, adjacent to the pleura in the superior segment of the right lower lobe, there were approximately 20-30 lesions. Patient will be set up for fine-needle aspiration biopsy with interventional radiology #2. Leukocytosis #3. Urinary tract infection versus asymptomatic bacteriuria #4. Elevated troponins #5. Elevated proBNP of 9040, suggesting possibility of acute congestive heart failure, but clinically patient's volume status does not seem to be overloaded at this time #6. Acute kidney injury #7. Mild hyponatremia #8. Coronary artery disease, severe mitral valve regurgitation, status post three-vessel coronary artery bypass grafting, with DESOUZA to LAD, reverse SVG to the RCA and OM, and mitral valve repair with exclusion of left atrial appendage , on 07/24/2017. Patient had postoperative A. fib, blood loss anemia requiring blood transfusions, small biapical pneumothoraces, and right sided pleural effusion requiring right-sided thoracentesis with drainage of 800 mL of pleural fluid, and the pleural fluid cultures were negative, no cytology was done. #9. History of left breast cancer in 1989 with ostectomy and lymph node resection, followed by chemoradiation, and chronic left arm lymphedema, history of right-sided breast cancer in 2008 that is post radiation. #10. Diabetes mellitus type 2 #11. Hypertension, hyperlipidemia #12. History of CVA #13. Carotid artery stenosis, status post left carotid endarterectomy Plan: CT chest results have been reviewed, and showed multiple areas of lung masses, with the largest one in the right upper lobe. We will consult interventional radiology for fine-needle aspiration biopsy of the right upper lobe mass. Medical oncology has been consulted and following I performed a history & physical examination of the patient and discussed their management with my nurse practitioner, Lizzeth Nunes. I reviewed the nurse practitioner's note and agree with the documented findings and plan of care. Lung sounds are positive for clear lungs. The findings and the impression was discussed with the patient. I attest to the documentation by the nurse practitioner. Time with Patient: Less than 30
--- NOTE | 2018-02-07 14:42 | P.PN ---
Subjective Progress Note Date: 02/07/18 This is a 77-year-old white female patient who presented to the emergency department on 02/05/2018 at 1500 for evaluation of increasing generalized weakness, lightheadedness, dizziness. Patient had a three-vessel coronary artery bypass grafting, with DESOUZA to the LAD, reverse SVG to the RCA, and OM, and mitral valve repair and left atrial appendage exclusion on 07/26/[address] Alvarez. Other medical history includes hypertension, hyperlipidemia, left breast cancer in 1989 with mastectomy with lymph node dissection followed by chemoradiation, and right breast cancer in 2007 with radiation, carotid artery disease status post left carotid endarterectomy, history of CVA, diabetes mellitus, nicotine dependence which is in remission. In the postoperative period patient had developed atrial fibrillation, currently in sinus rhythm. Patient also developed postoperative blood loss anemia, with the hemoglobin as low as 6.2 at the lowest, requiring blood transfusions. Her iron levels were found to be low, and patient did receive 2 iron transfusions. This admission her hemoglobin is 10.8. White count was 15.1, platelet count is 687, sodium is 132, potassium is 5.5, anion gap was mildly elevated at 13.2, BUN was 39, creatinine was 1.4, alkaline phosphatase was 175, ALT was 50, AST was 85, proBNP was elevated at 9040, troponins were 0.142, 0.122, and 0.134. Urinalysis showed small amount of blood, large leukocyte esterase, and WBCs. Patient denies any urinary symptoms.Denies any fever or chills. Denies any significant chest congestion, wheezing. No nausea or vomiting. No diarrhea. She has mild pretibial edema. Denied any chest pain, denied any hemoptysis or chest wall discomfort. Chest x-ray was taken and showed a mass present in the superior segment of right lower lobe or possibly right upper lobe showing approximately 4.7 cm and could be pleural based. No pneumothorax, there was smaller nodules present within the right lung, this was compared to the previous chest x-ray and were not seen there. There is a slight blunting of the left costophrenic angle. Today patient is seen in urination on selective care unit, she is resting comfortably in bed, in no significant distress, afebrile, room air pulse ox is 99%, hemodynamic was stable. Patient did have right thoracentesis on 07/31/2017 with drainage of 800 mL of pleural fluid, and the cultures were negative. No cytology was done. 02/07/2018 Patient seen and examined today, breathing is now much improved, still complains of feeling quite short of breath. Patient states she did put out urine after being given Lasix, no correct documentation of this in the chart. Patient has remained afebrile. Today's chest x-ray revealed multiple lung masses bilaterally with the largest in the right upper lobe. Right pleural effusion has resolved. CT of the chest without contrast was obtained and showed multiple lung masses bilaterally with largest right upper lobe measuring 4.5 cm and adjacent to the pleura in the superior segment of the right lower lobe. Blood pressure 128/60 with a heart rate in the 80s today, 98% on room air. White blood cell count 13.4, hemoglobin 9.7, platelet count 551. Sodium 132, potassium 4.7, BUN 35, creatinine 1.1. Echocardiogram with Doppler study was performed which revealed an ejection fraction of 40-45%, mild to moderate AR and mild to moderate MR Objective - Vital Signs Vital signs: Vital Signs Temp 97.3 F L 02/07/18 04:00 Pulse 82 02/07/18 08:00 Resp 16 02/07/18 08:00 BP 128/59 02/07/18 04:00 Pulse Ox 98 02/07/18 04:00 Intake & Output 02/06/18 02/07/18 02/07/18 18:59 06:59 18:59 Intake Total 410 480 240 Output Total 0 Balance 410 480 240 Weight 50.7 kg 50.7 kg Intake: IV 50 cefTRIAXone 1,000 mg In 50 Sodium Chloride 0.9% 50 ml @ 100 mls/hr IVPB ONCE STA Rx#:[id number] Oral 360 480 240 Output: Urine 0 Other: Voiding Method Toilet Toilet Toilet # Voids 1 2 # Bowel Movements 0 - Exam GENERAL EXAM: Alert, pleasant, thin 77-year-old frail looking older female, comfortable in no apparent distress. HEAD: Normocephalic/atraumatic. EYES: Normal reaction of pupils, equal size. Conjunctiva pink, sclera white. NOSE: Clear with pink turbinates. THROAT: No erythema or exudates. NECK: No masses, no JVD, no thyroid enlargement, no adenopathy. CHEST: No chest wall deformity. Symmetrical expansion. LUNGS: Equal air entry with no crackles, wheeze, rhonchi or dullness. CVS: Regular rate and rhythm, normal S1 and S2, no gallops, no murmurs, no rubs ABDOMEN: Soft, nontender. No hepatosplenomegaly, normal bowel sounds, no guarding or rigidity. EXTREMITIES: No clubbing, mild pretibial edema no cyanosis, 2+ pulses and upper and lower extremities. MUSCULOSKELETAL: Muscle strength and tone normal. SPINE: No scoliosis or deformity SKIN: No rashes CENTRAL NERVOUS SYSTEM: Alert and oriented -3. No focal deficits, tone is normal in all 4 extremities. PSYCHIATRIC: Alert and oriented -3. Appropriate affect. Intact judgment and insight. - Labs CBC & Chem 7: 02/07/18 05:53 02/07/18 05:53 Labs: Abnormal Lab Results - Last 24 Hours (Table) 02/06/18 02/06/18 02/07/18 Range/Units 16:24 20:42 05:53 WBC 13.4 H (3.8-10.6) k/uL Hgb 9.7 L (11.4-16.0) gm/dL Hct 33.5 L (34.0-46.0) % MCHC 28.8 L (31.0-37.0) g/dL RDW 18.6 H (11.5-15.5) % Plt Count 551 H (150-450) k/uL Neutrophils # 11.1 H (1.3-7.7) k/uL Sodium (137-145) mmol/L Carbon Dioxide (22-30) mmol/L BUN (7-17) mg/dL Creatinine (0.52-1.04) mg/dL POC Glucose (mg/dL) 109 H 101 H (75-99) mg/dL Calcium (8.4-10.2) mg/dL 02/07/18 02/07/18 Range/Units 05:53 11:27 WBC (3.8-10.6) k/uL Hgb (11.4-16.0) gm/dL Hct (34.0-46.0) % MCHC (31.0-37.0) g/dL RDW (11.5-15.5) % Plt Count (150-450) k/uL Neutrophils # (1.3-7.7) k/uL Sodium 132 L (137-145) mmol/L Carbon Dioxide 21 L (22-30) mmol/L BUN 35 H (7-17) mg/dL Creatinine 1.15 H (0.52-1.04) mg/dL POC Glucose (mg/dL) 116 H (75-99) mg/dL Calcium 12.1 H (8.4-10.2) mg/dL Microbiology - Last 24 Hours (Table) 02/05/18 18:41 Blood Culture - Preliminary Blood No Growth after 24 hours 02/05/18 14:15 Gram Stain - Preliminary Ascites Fluid Body Fluid Culture - Preliminary Assessment and Plan Plan: Assessment: #1. Right upper lobe mass, multiple nodular area bilaterally, possibly related to metastatic or new primary malignancy. #2. Leukocytosis #3. Urinary tract infection versus asymptomatic bacteriuria #4. Elevated troponins #5. Elevated proBNP of 9040, suggesting possibility of acute congestive heart failure, systolic acute on chronic #6. Acute kidney injury #7. Mild hyponatremia #8. Coronary artery disease, severe mitral valve regurgitation, status post three-vessel coronary artery bypass grafting, with DESOUZA to LAD, reverse SVG to the RCA and OM, and mitral valve repair with exclusion of left atrial appendage , on 07/24/2017. Patient had postoperative A. fib, blood loss anemia requiring blood transfusions, small biapical pneumothoraces, and right sided pleural effusion requiring right-sided thoracentesis with drainage of 800 mL of pleural fluid, and the pleural fluid cultures were negative, no cytology was done. #9. History of left breast cancer in 1989 with ostectomy and lymph node resection, followed by chemoradiation, and chronic left arm lymphedema, history of right-sided breast cancer in 2007 that is post radiation. #10. Diabetes mellitus type 2 #11. Hypertension, hyperlipidemia #12. History of CVA #13. Carotid artery stenosis, status post left carotid endarterectomy Plan Cardiology's perspective, we'll continue current maximum medical therapy. We will follow along with you now on an as-needed basis only, please don't hesitate to call if you have any questions. DNP note has been reviewed, I agree with a documented findings and plan of care. Patient was seen and examined.
--- NOTE | 2018-02-07 16:08 | P.PN ---
Subjective Progress Note Date: 02/07/18 Principal diagnosis: Lung Mass, Pneumonia Patient seen this am in follow-up, no significant improvement after diuretics and antibiotics. Pulmonary did evaluate and planning on Interventional radiology FN Biopsy on lung Mass Objective - Vital Signs Vital signs: Vital Signs Temp 97.0 F L 02/07/18 08:00 Pulse 94 02/07/18 12:00 Resp 18 02/07/18 12:00 BP 134/70 02/07/18 12:00 Pulse Ox 97 02/07/18 12:00 Intake & Output 02/06/18 02/07/18 02/07/18 18:59 06:59 18:59 Intake Total 410 480 240 Output Total 0 Balance 410 480 240 Weight 50.7 kg 50.7 kg Intake: IV 50 cefTRIAXone 1,000 mg In 50 Sodium Chloride 0.9% 50 ml @ 100 mls/hr IVPB ONCE STA Rx#:[id number] Oral 360 480 240 Output: Urine 0 Other: Voiding Method Toilet Toilet Toilet # Voids 1 2 # Bowel Movements 0 - Exam Constitutional General appearance: cooperative, no acute distress, thin - EENT Eyes: EOMI, PERRLA, dentition normal ENT: hard of hearing, NA/AT, normal oropharynx - Neck Supple, trachea midline. Neck: normal ROM - Respiratory Respiratory: bilateral: diminished, wheezing (Expiratory) - Cardiovascular Rhythm: regular Heart sounds: normal: S1, S2 - Gastrointestinal General gastrointestinal: normal bowel sounds, soft - Integumentary Integumentary: pale - Neurologic Neurologic: CNII-XII intact - Musculoskeletal Musculoskeletal: generalized weakness, strength equal bilaterally - Psychiatric Psychiatric: A&O x's 3, appropriate affect, intact judgment & insight - Labs CBC & Chem 7: 02/07/18 05:53 02/07/18 05:53 Labs: Abnormal Lab Results - Last 24 Hours (Table) 02/06/18 02/06/18 02/07/18 Range/Units 16:24 20:42 05:53 WBC 13.4 H (3.8-10.6) k/uL Hgb 9.7 L (11.4-16.0) gm/dL Hct 33.5 L (34.0-46.0) % MCHC 28.8 L (31.0-37.0) g/dL RDW 18.6 H (11.5-15.5) % Plt Count 551 H (150-450) k/uL Neutrophils # 11.1 H (1.3-7.7) k/uL Sodium (137-145) mmol/L Carbon Dioxide (22-30) mmol/L BUN (7-17) mg/dL Creatinine (0.52-1.04) mg/dL POC Glucose (mg/dL) 109 H 101 H (75-99) mg/dL Calcium (8.4-10.2) mg/dL 02/07/18 02/07/18 Range/Units 05:53 11:27 WBC (3.8-10.6) k/uL Hgb (11.4-16.0) gm/dL Hct (34.0-46.0) % MCHC (31.0-37.0) g/dL RDW (11.5-15.5) % Plt Count (150-450) k/uL Neutrophils # (1.3-7.7) k/uL Sodium 132 L (137-145) mmol/L Carbon Dioxide 21 L (22-30) mmol/L BUN 35 H (7-17) mg/dL Creatinine 1.15 H (0.52-1.04) mg/dL POC Glucose (mg/dL) 116 H (75-99) mg/dL Calcium 12.1 H (8.4-10.2) mg/dL Microbiology - Last 24 Hours (Table) 02/05/18 18:41 Blood Culture - Preliminary Blood No Growth after 24 hours 02/05/18 14:15 Gram Stain - Preliminary Ascites Fluid Body Fluid Culture - Preliminary Assessment and Plan Plan: Assessment and Recommendations: 1. New Right Upper Lobe Nodularity, RUL Mass (Not previously apprciated on prior diagnstics): - Differentials include metastatic recurrent or new primary Malignancy versus Infectious or community acquired pneumonia - IV antibiotics initiated per pulmonary and diuretics without improvement - CT without contrast reviewed - Agree with plan for biopsy of Lung via IR 2. HX: Left Breast Cancer in 1989 and Right Breast Cancer in 2007 - BRCA testing Negative 3. HX: CVA 4. HX: CAD status post CABG with Stenting in July 2017 5. Acute Renal Insufficiency 6. Normocytic Anemia - Improved from previously. - Status Post 2 IV Farahemes in early January 2018 Thank you for allowing us to participate in the care of this patient we will follow along with you.
--- NOTE | 2018-02-07 16:52 | P.PN ---
Subjective Progress Note Date: 02/07/18 Progress note being dictated for Dr. Ahmadi. Interval history:77-year-old wasn't female came in with complaints of generalized tiredness when questioned patient did complain of dysuria that he does have significantly abnormal urine subsequently admitted with Rocephin. Patient is very thin built had a recent coronary artery bypass graft surgery along with a valve replacement surgery. Patient has multiple other issues going on at this time. Patient chest x-ray was obtained which showed a small masslike consolidation because of which pulmonology was consulted I did review the images with Dr. Barron um nurse in the this mass was not present in previous x-rays because of which pulmonology believes may be pneumonia, recommending an of the chest x-ray tomorrow if it's still shows this masslike consolidation will obtain a CAT scan of the chest that at this time her creatinine is borderline. Patient is comparing of cough yellowish sputum production. Because of which pulmonology is recommending to add azithromycin. Patient does have elevated potassium which she is secondary to hemolysis patient is on Aldactone which is being held and losartan is being held as well along with hydrochlorothiazide her blood pressure is on the low normal side. Repeat basic metabolic profile tomorrow patient was started on IV fluids patient had a normal ejection fraction the past although had a pleural effusion post CABG and removal of the fluid from the right to lung. Patient masslike lesion is in the right middle lobe. Patient will be continued on sliding scale insulin and metformin will be held as an Review of Systems REVIEW OF SYSTEMS: CONSTITUTIONAL: No fever HEENT: No recent visual problems or hearing problems. Denied any sore throat. CARDIOVASCULAR: No chest pain, orthopnea, PND, no palpitations, no syncope. PULMONARY: No shortness of breath, no cough, no hemoptysis. GASTROINTESTINAL: No diarrhea, no nausea, no vomiting, no abdominal pain. Normoactive bowel sounds. NEUROLOGICAL: No headaches, no weakness, no numbness. HEMATOLOGICAL: Denies any bleeding or petechiae. GENITOURINARY: As mentioned in HPI MUSCULOSKELETAL/RHEUMATOLOGICAL: Denies any joint pain, swelling, or any muscle pain. ENDOCRINE: Denies any polyuria or polydipsia. The rest of the 14-point review of systems is negative. 02/07/2018 maintained on Zithromax, Rocephin. Remains short of breath. Chest x -ray reported multiple lung masses throughout. Chest CT performed, reporting multiple lung masses bilaterally, largest in the right upper lobe measuring 4.5 cm, left pleural effusion, enlarged liver, suspect underlying masses, possible retroperitoneal adenopathy; compatible with metastatic disease. Sodium 132, creatinine 1.15. Afebrile. Objective - Vital Signs Vital signs: Vital Signs Temp 97.0 F L 02/07/18 08:00 Pulse 94 02/07/18 12:00 Resp 18 02/07/18 12:00 BP 134/70 02/07/18 12:00 Pulse Ox 97 02/07/18 12:00 Intake & Output 02/06/18 02/07/18 02/07/18 18:59 06:59 18:59 Intake Total 410 480 240 Output Total 0 Balance 410 480 240 Weight 50.7 kg 50.7 kg Intake: IV 50 cefTRIAXone 1,000 mg In 50 Sodium Chloride 0.9% 50 ml @ 100 mls/hr IVPB ONCE STA Rx#:[id number] Oral 360 480 240 Output: Urine 0 Other: Voiding Method Toilet Toilet Toilet # Voids 1 2 # Bowel Movements 0 - Exam GENERAL: The patient is alert and oriented x3, not in any acute distress. Thin built HEENT: Pupils are round and equally reacting to light. EOMI. No scleral icterus. No conjunctival pallor. Normocephalic, atraumatic. No pharyngeal erythema. No thyromegaly. CARDIOVASCULAR: S1 and S2 present. No murmurs, rubs, or gallops. PULMONARY: Chest is clear to auscultation, no wheezing or crackles. ABDOMEN: Soft, nontender, nondistended, normoactive bowel sounds. No palpable organomegaly. MUSCULOSKELETAL: No joint swelling or deformity. EXTREMITIES: No cyanosis, clubbing, or pedal edema. NEUROLOGICAL: Gross neurological examination did not reveal any focal deficits. SKIN: No rashes. - Labs CBC & Chem 7: 02/07/18 05:53 02/07/18 05:53 Labs: Abnormal Lab Results - Last 24 Hours (Table) 02/06/18 02/06/18 02/07/18 Range/Units 16:24 20:42 05:53 WBC 13.4 H (3.8-10.6) k/uL Hgb 9.7 L (11.4-16.0) gm/dL Hct 33.5 L (34.0-46.0) % MCHC 28.8 L (31.0-37.0) g/dL RDW 18.6 H (11.5-15.5) % Plt Count 551 H (150-450) k/uL Neutrophils # 11.1 H (1.3-7.7) k/uL Sodium (137-145) mmol/L Carbon Dioxide (22-30) mmol/L BUN (7-17) mg/dL Creatinine (0.52-1.04) mg/dL POC Glucose (mg/dL) 109 H 101 H (75-99) mg/dL Calcium (8.4-10.2) mg/dL 02/07/18 02/07/18 Range/Units 05:53 11:27 WBC (3.8-10.6) k/uL Hgb (11.4-16.0) gm/dL Hct (34.0-46.0) % MCHC (31.0-37.0) g/dL RDW (11.5-15.5) % Plt Count (150-450) k/uL Neutrophils # (1.3-7.7) k/uL Sodium 132 L (137-145) mmol/L Carbon Dioxide 21 L (22-30) mmol/L BUN 35 H (7-17) mg/dL Creatinine 1.15 H (0.52-1.04) mg/dL POC Glucose (mg/dL) 116 H (75-99) mg/dL Calcium 12.1 H (8.4-10.2) mg/dL Microbiology - Last 24 Hours (Table) 02/05/18 18:41 Blood Culture - Preliminary Blood No Growth after 24 hours 02/05/18 14:15 Gram Stain - Preliminary Ascites Fluid Body Fluid Culture - Preliminary Assessment and Plan Assessment: -Possible acute urinary tract infection versus asymptomatic bacteriuria -Leukocytosis -multiple lung masses bilaterally, largest in the right upper lobe measuring 4.5 cm, left pleural effusion, enlarged liver, suspect underlying masses, possible retroperitoneal adenopathy; compatible with metastatic disease per CT. possible new primary malignancy. -History of bilateral breast cancer; left breast cancer 1989, right-sided breast cancer 2007 -Hyperkalemia holding off on losartan and and Aldactone. -Hyperlipidemia -Carotid artery disease with recent CABG/MVR repair -Acute renal failure secondary to hypotension and anti-hypertensives -Hyperlipidemia -Mildly elevated troponin secondary to renal dysfunction patient doesn't have any chest pain. Plan: Continue on current medication regime ,monitoring and symptomatic treatment. CT findings discussed with patient, FNA biopsy pending. Oncology consult in place. Prognosis guarded given multiple complex medical issues. The impression and plan of care has been dictated as directed. : I performed a history and examination of this patient, discussed the same with the dictator. I agree with the dictator's note ,documented as a scribe. Any additional findings or plans will be noted.
[2018-02-07 17:04] LABS: Glucose,Whole Blood 153 mg/dL (75-99)
[2018-02-07] MEDS: ASPIRIN 325 MG TAB PO SCH (17:37)
--- NOTE | 2018-02-07 19:19 | US ---
EXAMINATION TYPE: US liver DATE OF EXAM: 02/07/2018 COMPARISON: NONE CLINICAL HISTORY: possible metastatic disease to liver. Lung CA EXAM MEASUREMENTS: Liver Length: 22 cm Gallbladder Wall: Surgically absent CBD: 0.8 cm Right Kidney: 11.5 x 5.3 x 6.3 cm Pancreas: Obscured by bowel gas, visualized portions appear wnl Liver: Enlarged, diffusely heterogeneous with multiple possible underlying masses visualized Gallbladder: Surgically absent Evidence for sonographic Floyd's sign: No CBD: wnl as visualized Right Kidney: Possible hydronephrosis- there is echogenic debris visualized within the dilated areas of the right kidney IMPRESSION: Liver is enlarged with heterogeneity that is suspicious for diffuse metastatic disease. T here is moderate right-sided hydronephrosis. No ascites seen. No dilated ducts.
[2018-02-07 19:24] LABS: Glucose,Whole Blood 106 mg/dL (75-99)
[2018-02-07 20:38] LABS: Glucose,Whole Blood 199 mg/dL (75-99)
[2018-02-08 06:21] LABS: Glucose,Whole Blood 88 mg/dL (75-99)
[2018-02-08] MEDS: INSULIN ASPART 100 UNIT/ML 1 ML 10 ML VIAL SQ SCH ×4 (06:26→22:08)
[2018-02-08] MEDS: CARVEDILOL 3.125 MG TAB PO SCH (06:48)
[2018-02-08] MEDS: CHOLECALCIFEROL 1,000 UNIT TAB PO SCH (07:57)
[2018-02-08] MEDS: AZITHROMYCIN 500 MG TAB PO SCH (07:57)
[2018-02-08] MEDS: ACETAMINOPHEN TAB 500 MG TAB PO PRN ×2 (07:57→19:52)
[2018-02-08] MEDS: FERROUS SULFATE 325 MG TAB PO SCH (07:57)
[2018-02-08] MEDS ORDERED: ASPIRIN 81 MG PO SCH (09:00)
[2018-02-08 11:39] LABS: Glucose,Whole Blood 184 mg/dL (75-99)
--- NOTE | 2018-02-08 13:54 | P.PN ---
Subjective Progress Note Date: 02/08/18 Principal diagnosis: Nodular densities, right upper lobe mass, rule out malignancy This is a 77-year-old white female patient of Dr. Alia giordano, who presented to the emergency department on 02/05/2018 at 1500 for evaluation of increasing generalized weakness, lightheadedness, dizziness. Patient had a three-vessel coronary artery bypass grafting, with DESOUZA to the LAD, reverse SVG to the RCA, and OM, and mitral valve repair and left atrial appendage exclusion on [address] Alvarez. Other medical history includes hypertension, hyperlipidemia, left breast cancer in 1989 with mastectomy with lymph node dissection followed by chemoradiation, and right breast cancer in 2007 with radiation, carotid artery disease status post left carotid endarterectomy, history of CVA, diabetes mellitus, nicotine dependence which is in remission. In the postoperative period patient had developed atrial fibrillation, currently in sinus rhythm. Patient also developed postoperative blood loss anemia, with the hemoglobin as low as 6.2 at the lowest, requiring blood transfusions. Her iron levels were found to be low, and patient did receive 2 iron transfusions. This admission her hemoglobin is 10.8. White count was 15.1 , platelet count is 687, sodium is 132, potassium is 5.5, anion gap was mildly elevated at 13.2, BUN was 39, creatinine was 1.4, alkaline phosphatase was 175, ALT was 50, AST was 85, proBNP was elevated at 9040, troponins were 0.142, 0.122 , and 0.134. Urinalysis showed small amount of blood, large leukocyte esterase , and WBCs. Patient denies any urinary symptoms.Denies any fever or chills. Denies any significant chest congestion, wheezing. No nausea or vomiting. No diarrhea. She has mild pretibial edema. Denied any chest pain, denied any hemoptysis or chest wall discomfort. Chest x-ray was taken and showed a mass present in the superior segment of right lower lobe or possibly right upper lobe showing approximately 4.7 cm and could be pleural based. No pneumothorax, there was smaller nodules present within the right lung, this was compared to the previous chest x-ray and were not seen there. There is a slight blunting of the left costophrenic angle. Today patient is seen in urination on selective care unit, she is resting comfortably in bed, in no significant distress, afebrile, room air pulse ox is 99%, hemodynamic was stable. Patient did have right thoracentesis on 07/31/2017 with drainage of 800 mL of pleural fluid, and the cultures were negative. No cytology was done. On 02/07/2018 patient seen in follow-up on selective care unit. Breathing has not much improved, yesterday we gave patient a dose of Lasix, net fluid balance is difficult to estimate as there was no accurate I and O's recorded. Patient' s weight has actually increased according to the recorded weights. No fever or chills, patient has been started on Zithromax and Rocephin, and today's chest x- ray showed multiple lung masses bilaterally, with the largest in the right upper lobe, and areas of nodular lesions. Right pleural effusion has resolved. CT of the chest without contrast was obtained, and showed multiple lung masses bilaterally, with the largest right upper lobe measuring 4.5 cm and adjacent to the pleura in the superior segment of the right lower lobe. There is approximately 20-30 lesions, areas of scarring, there were no definitive greater than 1 cm hilar or mediastinal lymph nodes, however the CAT scan was done without contrast. On 02/08/2018 patient seen in follow-up on selective care unit. Interventional radiology was consulted for fine-needle aspiration biopsy of the right lung mass , and it was recommended to obtain ultrasound of the liver as her weren't suspicious masses seen on the CT chest. Ultrasound of the liver showed enlargement with heterogeneity which was suspicious for diffuse metastatic disease, moderate right-sided hydronephrosis. IR requested aspirin and Plavix on hold at least for 7 days, heparin will be held as well. Worsening difficulty breathing, patient is likely comfortable, currently on room air with a pulse ox of 95%, she is afebrile, hemodynamically stable. She is having lower lumbar area back discomfort, but no acute distress. Lung sounds are clear to auscultation. She remains in sinus rhythm. He is afebrile. Cultures are negative. No new labs today. He has service has been consulted in regards to the ultrasound results. Objective - Vital Signs Vital signs: Vital Signs Temp 97.8 F 02/08/18 08:00 Pulse 84 02/08/18 08:00 Resp 16 02/08/18 12:00 BP 138/54 02/08/18 08:00 Pulse Ox 95 02/08/18 08:00 Intake & Output 02/07/18 02/08/18 02/08/18 18:59 06:59 18:59 Intake Total 480 540 240 Output Total 600 300 Balance -120 540 -60 Weight 50.7 kg 51.8 kg Intake: Oral 480 540 240 Output: Urine 600 300 Other: Voiding Method Toilet Toilet Toilet # Voids 1 1 - Exam GENERAL EXAM: Alert, pleasant, thin 77-year-old frail looking older female, comfortable in no apparent distress. HEAD: Normocephalic/atraumatic. EYES: Normal reaction of pupils, equal size. Conjunctiva pink, sclera white. NOSE: Clear with pink turbinates. THROAT: No erythema or exudates. NECK: No masses, no JVD, no thyroid enlargement, no adenopathy. CHEST: No chest wall deformity. Symmetrical expansion. LUNGS: Equal air entry with no crackles, wheeze, rhonchi or dullness. CVS: Regular rate and rhythm, normal S1 and S2, no gallops, no murmurs, no rubs ABDOMEN: Soft, nontender. No hepatosplenomegaly, normal bowel sounds, no guarding or rigidity. EXTREMITIES: No clubbing, mild pretibial edema no cyanosis, 2+ pulses and upper and lower extremities. MUSCULOSKELETAL: Muscle strength and tone normal. SPINE: No scoliosis or deformity SKIN: No rashes CENTRAL NERVOUS SYSTEM: Alert and oriented -3. No focal deficits, tone is normal in all 4 extremities. PSYCHIATRIC: Alert and oriented -3. Appropriate affect. Intact judgment and insight. - Labs CBC & Chem 7: 02/07/18 05:53 02/07/18 05:53 Labs: Abnormal Lab Results - Last 24 Hours (Table) 02/07/18 02/07/18 02/07/18 Range/Units 16:49 19:03 20:36 POC Glucose (mg/dL) 153 H 106 H 199 H (75-99) mg/dL 02/08/18 Range/Units 11:33 POC Glucose (mg/dL) 184 H (75-99) mg/dL Microbiology - Last 24 Hours (Table) 02/05/18 14:15 Anaerobic Culture - Preliminary Ascites Fluid 02/05/18 18:41 Blood Culture - Preliminary Blood No Growth after 48 hours 10/02/18 14:15 Gram Stain - Preliminary Ascites Fluid Body Fluid Culture - Preliminary Assessment and Plan Plan: Assessment: #1. Right upper lobe mass, multiple nodular area bilaterally, possibly related to metastatic or new primary malignancy. Pt presented with weakness, dizziness, weight loss. Chest x-ray revealed a new right upper lobe mass, and new nodularity within the right lung not previously seen on the chest x-rays from September 2017. CT chest showed multiple areas of lung masses bilaterally, with the largest in the right upper lobe, adjacent to the pleura in the superior segment of the right lower lobe, there were approximately 20-30 lesions. Patient will be set up for fine-needle aspiration biopsy with interventional radiology #2. Multiple liver masses suspicious for diffuse metastatic disease #3. Leukocytosis #4. Urinary tract infection versus asymptomatic bacteriuria #5. Elevated troponins #6. Elevated proBNP of 9040, suggesting possibility of acute congestive heart failure, but clinically patient's volume status does not seem to be overloaded at this time #7. Acute kidney injury #8. Mild hyponatremia #9. Coronary artery disease, severe mitral valve regurgitation, status post three-vessel coronary artery bypass grafting, with DESOUZA to LAD, reverse SVG to the RCA and OM, and mitral valve repair with exclusion of left atrial appendage , on 07/24/2017. Patient had postoperative A. fib, blood loss anemia requiring blood transfusions, small biapical pneumothoraces, and right sided pleural effusion requiring right-sided thoracentesis with drainage of 800 mL of pleural fluid, and the pleural fluid cultures were negative, no cytology was done. #10. History of left breast cancer in 1989 with ostectomy and lymph node resection, followed by chemoradiation, and chronic left arm lymphedema, history of right-sided breast cancer in 2007 that is post radiation. #11. Diabetes mellitus type 2 #12. Hypertension, hyperlipidemia #13. History of CVA #14. Carotid artery stenosis, status post left carotid endarterectomy Plan: Liver ultrasound results showed multiple masses suspicious for diffuse metastatic disease, with consulted interventional radiology for biopsy of the right upper lobe mass, they requested aspirin and Plavix on hold for 7 days. We 'll place the heparin on hold as well. GI service has been consulted in regards to the findings of the liver ultrasound. No fever or chills, no worsening shortness of breath. Cultures are negative. Patient could potentially be discharged and brought back for outpatient biopsy of the liver or the right upper lobe mass. Was discussed with the attending physician. I performed a history & physical examination of the patient and discussed their management with my nurse practitioner, Lizzeth Nunes. I reviewed the nurse practitioner's note and agree with the documented findings and plan of care. Lung sounds are positive for clear lungs. The findings and the impression was discussed with the patient. I attest to the documentation by the nurse practitioner. Time with Patient: Less than 30
[2018-02-08 17:15] LABS: Glucose,Whole Blood 119 mg/dL (75-99)
--- NOTE | 2018-02-08 17:32 | P.PN ---
Subjective Progress Note Date: 02/08/18 Progress note being dictated for Dr. Oreilly. Interval history:77-year-old wasn't female came in with complaints of generalized tiredness when questioned patient did complain of dysuria that he does have significantly abnormal urine subsequently admitted with Rocephin. Patient is very thin built had a recent coronary artery bypass graft surgery along with a valve replacement surgery. Patient has multiple other issues going on at this time. Patient chest x-ray was obtained which showed a small masslike consolidation because of which pulmonology was consulted I did review the images with Dr. Barron financial professional in the this mass was not present in previous x-rays because of which pulmonology believes may be pneumonia, recommending an of the chest x-ray tomorrow if it's still shows this masslike consolidation will obtain a CAT scan of the chest that at this time her creatinine is borderline. Patient is comparing of cough yellowish sputum production. Because of which pulmonology is recommending to add azithromycin. Patient does have elevated potassium which she is secondary to hemolysis patient is on Aldactone which is being held and losartan is being held as well along with hydrochlorothiazide her blood pressure is on the low normal side. Repeat basic metabolic profile tomorrow patient was started on IV fluids patient had a normal ejection fraction the past although had a pleural effusion post CABG and removal of the fluid from the right to lung. Patient masslike lesion is in the right middle lobe. Patient will be continued on sliding scale insulin and metformin will be held as an Review of Systems REVIEW OF SYSTEMS: CONSTITUTIONAL: No fever HEENT: No recent visual problems or hearing problems. Denied any sore throat. CARDIOVASCULAR: No chest pain, orthopnea, PND, no palpitations, no syncope. PULMONARY: No shortness of breath, no cough, no hemoptysis. GASTROINTESTINAL: No diarrhea, no nausea, no vomiting, no abdominal pain. Normoactive bowel sounds. NEUROLOGICAL: No headaches, no weakness, no numbness. HEMATOLOGICAL: Denies any bleeding or petechiae. GENITOURINARY: As mentioned in HPI MUSCULOSKELETAL/RHEUMATOLOGICAL: Denies any joint pain, swelling, or any muscle pain. ENDOCRINE: Denies any polyuria or polydipsia. The rest of the 14-point review of systems is negative. 02/07/2018 maintained on Zithromax, Rocephin. Remains short of breath. Chest x -ray reported multiple lung masses throughout. Chest CT performed, reporting multiple lung masses bilaterally, largest in the right upper lobe measuring 4.5 cm, left pleural effusion, enlarged liver, suspect underlying masses, possible retroperitoneal adenopathy; compatible with metastatic disease. Sodium 132, creatinine 1.15. Afebrile. 02/08/18 liver ultrasound reported enlarged liver with heterogeneity suspicious for diffuse metastatic disease, moderate right-sided hydronephrosis. Interventional radiology recommending liver biopsy, after holding aspirin, Plavix for a week. GI consulted. Less short of breath today, maintaining O2 sats in the mid 90s on room air. Afebrile, preliminary Cultures negative. Objective - Vital Signs Vital signs: Vital Signs Temp 97.1 F L 02/08/18 04:26 Pulse 90 02/08/18 04:26 Resp 15 02/08/18 04:26 BP 141/65 02/08/18 04:26 Pulse Ox 97 02/08/18 04:26 Intake & Output 02/07/18 02/08/18 02/08/18 18:59 06:59 18:59 Intake Total 480 540 240 Output Total 600 Balance -120 540 240 Weight 50.7 kg 51.8 kg Intake: Oral 480 540 240 Output: Urine 600 Other: Voiding Method Toilet Toilet # Voids 1 1 - Exam GENERAL: The patient is alert and oriented x3, not in any acute distress. HEENT: Pupils are round and equally reacting to light. EOMI. No scleral icterus. No conjunctival pallor. Normocephalic, atraumatic. CARDIOVASCULAR: S1 and S2 present. No murmurs, rubs, or gallops. PULMONARY: Chest is clear to auscultation, no wheezing or crackles. ABDOMEN: Soft, nontender, distended, normoactive bowel sounds. No palpable organomegaly. MUSCULOSKELETAL: No joint swelling or deformity. EXTREMITIES: No cyanosis, clubbing, or mild lower extremity edema. NEUROLOGICAL: Gross neurological examination did not reveal any focal deficits. - Labs CBC & Chem 7: 02/07/18 05:53 02/07/18 05:53 Labs: Abnormal Lab Results - Last 24 Hours (Table) 02/07/18 02/07/18 02/07/18 Range/Units 11:27 16:49 19:03 POC Glucose (mg/dL) 116 H 153 H 106 H (75-99) mg/dL 02/07/18 Range/Units 20:36 POC Glucose (mg/dL) 199 H (75-99) mg/dL Microbiology - Last 24 Hours (Table) 02/05/18 14:15 Anaerobic Culture - Preliminary Ascites Fluid 02/05/18 18:41 Blood Culture - Preliminary Blood No Growth after 48 hours 02/05/18 14:15 Gram Stain - Preliminary Ascites Fluid Body Fluid Culture - Preliminary Assessment and Plan Assessment: -Possible acute urinary tract infection versus asymptomatic bacteriuria -Leukocytosis -multiple lung masses bilaterally, largest in the right upper lobe measuring 4.5 cm, left pleural effusion, enlarged liver, suspect underlying masses, possible retroperitoneal adenopathy; compatible with metastatic disease per CT. possible new primary malignancy. -History of bilateral breast cancer; left breast cancer 1989, right-sided breast cancer 2007 -Hyperkalemia holding off on losartan and and Aldactone. -Hyperlipidemia -Carotid artery disease with recent CABG/MVR repair -Acute renal failure secondary to hypotension and anti-hypertensives -Hyperlipidemia -Mildly elevated troponin secondary to renal dysfunction patient doesn't have any chest pain. Plan: Continue on current medication regime ,monitoring and symptomatic treatment. GI consulted regarding new liver mass. Aspirin, Plavix to be held 1 week as per Interventional radiology's recommendations. Prognosis guarded given multiple complex medical issues. The impression and plan of care has been dictated as directed. : I performed a history and examination of this patient, discussed the same with the dictator. I agree with the dictator's note ,documented as a scribe. Any additional findings or plans will be noted.
[2018-02-08] MEDS: PRAVASTATIN SODIUM 20 MG TAB PO SCH (19:52)
[2018-02-08 21:18] LABS: Hemoglobin A1C 4.5 % (4.0-6.0)
[2018-02-08 21:36] LABS: Glucose,Whole Blood 128 mg/dL (75-99)
[2018-02-09 06:18] LABS: Glucose,Whole Blood 89 mg/dL (75-99)
[2018-02-09] MEDS: INSULIN ASPART 100 UNIT/ML 1 ML 10 ML VIAL SQ SCH ×5 (06:22→21:59)
[2018-02-09] MEDS: CARVEDILOL 3.125 MG TAB PO SCH (06:48)
[2018-02-09 06:56] LABS: Anisocytosis Slight; Basophils % (A) 0 %; Eosinophils # (A) 0.1 k/uL (0-0.7); Eosinophils % (A) 1 %; HCT 31.9 % (34.0-46.0); HGB 9.8 gm/dL (11.4-16.0); Hypochromasia Marked; Lymphocytes # (A) 1.4 k/uL (1.0-4.8); Lymphocytes % (A) 10 %; MCH 26.2 pg (25.0-35.0); MCHC 30.6 g/dL (31.0-37.0); MCV 85.7 fL (80.0-100.0); Monocytes # (A) 0.8 k/uL (0-1.0); Monocytes % (A) 5 %; Neutrophils # (A) 12.4 k/uL (1.3-7.7); Neutrophils % (A) 84 %; Platelet Count 552 k/uL (150-450); RBC 3.73 m/uL (3.80-5.40); RDW 18.5 % (11.5-15.5); WBC 14.8 k/uL (3.8-10.6)
[2018-02-09] MEDS: ACETAMINOPHEN TAB 500 MG TAB PO PRN ×3 (06:58→21:53)
[2018-02-09 07:03] LABS: Albumin 2.2 g/dL (3.5-5.0); Potassium 4.8 mmol/L (3.5-5.1); Total Bilirubin 0.5 mg/dL (0.2-1.3); Total Protein 4.8 g/dL (6.3-8.2)
[2018-02-09] MEDS: FERROUS SULFATE 325 MG TAB PO SCH (08:08)
[2018-02-09] MEDS: CHOLECALCIFEROL 1,000 UNIT TAB PO SCH (08:08)
[2018-02-09] MEDS: AZITHROMYCIN 500 MG TAB PO SCH (08:08)
[2018-02-09 12:01] LABS: Glucose,Whole Blood 135 mg/dL (75-99)
[2018-02-09] MEDS ORDERED: MAGNESIUM HYDROXIDE 2,400 MG/10 ML CUP PO PRN (12:44)
--- NOTE | 2018-02-09 14:51 | P.PN ---
Subjective Progress Note Date: 02/09/18 Progress note being dictated for Dr. Oreilly Interval history 77-year-old wasn't female came in with complaints of generalized tiredness when questioned patient did complain of dysuria that he does have significantly abnormal urine subsequently admitted with Rocephin. Patient is very thin built had a recent coronary artery bypass graft surgery along with a valve replacement surgery. Patient has multiple other issues going on at this time. Patient chest x-ray was obtained which showed a small masslike consolidation because of which pulmonology was consulted I did review the images with Dr. Barron fire adjuster in the this mass was not present in previous x-rays because of which pulmonology believes may be pneumonia, recommending an of the chest x-ray tomorrow if it's still shows this masslike consolidation will obtain a CAT scan of the chest that at this time her creatinine is borderline. Patient is comparing of cough yellowish sputum production. Because of which pulmonology is recommending to add azithromycin. Patient does have elevated potassium which she is secondary to hemolysis patient is on Aldactone which is being held and losartan is being held as well along with hydrochlorothiazide her blood pressure is on the low normal side. Repeat basic metabolic profile tomorrow patient was started on IV fluids patient had a normal ejection fraction the past although had a pleural effusion post CABG and removal of the fluid from the right to lung. Patient masslike lesion is in the right middle lobe. Patient will be continued on sliding scale insulin and metformin will be held as an 02/07/2018 maintained on Zithromax, Rocephin. Remains short of breath. Chest x -ray reported multiple lung masses throughout. Chest CT performed, reporting multiple lung masses bilaterally, largest in the right upper lobe measuring 4.5 cm, left pleural effusion, enlarged liver, suspect underlying masses, possible retroperitoneal adenopathy; compatible with metastatic disease. Sodium 132, creatinine 1.15. Afebrile. 02/08/18 liver ultrasound reported enlarged liver with heterogeneity suspicious for diffuse metastatic disease, moderate right-sided hydronephrosis. Interventional radiology recommending liver biopsy, after holding aspirin, Plavix for a week. GI consulted. Less short of breath today, maintaining O2 sats in the mid 90s on room air. Afebrile, preliminary Cultures negative. 02/09/2018 Patient is seen and examined this morning along with the Dr. Oreilly. She was sitting up in chair. Her urinary symptoms are improved. White count continued to be elevated. Patient is on IV antibiotic. Review of Systems REVIEW OF SYSTEMS: CONSTITUTIONAL: No fever HEENT: No recent visual problems or hearing problems. Denied any sore throat. CARDIOVASCULAR: No chest pain, orthopnea, PND, no palpitations, no syncope. PULMONARY: No shortness of breath, no cough, no hemoptysis. GASTROINTESTINAL: No diarrhea, no nausea, no vomiting, no abdominal pain. Normoactive bowel sounds. NEUROLOGICAL: No headaches, no weakness, no numbness. HEMATOLOGICAL: Denies any bleeding or petechiae. GENITOURINARY: As mentioned in HPI MUSCULOSKELETAL/RHEUMATOLOGICAL: Denies any joint pain, swelling, or any muscle pain. ENDOCRINE: Denies any polyuria or polydipsia. The rest of the 14-point review of systems is negative. Active Medications Acetaminophen (Tylenol Tab) 1,000 mg PO Q4H PRN PRN Reason: Mild Pain Last Admin: 02/09/18 06:58 Dose: 1,000 mg Carvedilol (Coreg) 3.125 mg PO AC-BRKFST [facility] Last Admin: 02/09/18 06:48 Dose: 3.125 mg Cholecalciferol (Vitamin D3) 2,000 unit PO DAILY [facility] Last Admin: 02/09/18 08:08 Dose: 2,000 unit Ferrous Sulfate (Feosol) 325 mg PO DAILY [facility] Last Admin: 02/09/18 08:08 Dose: 325 mg Insulin Aspart (Novolog) 0 unit SQ [facility]; Protocol Last Admin: 02/09/18 12:33 Dose: 1 unit Magnesium Hydroxide (Milk Of Magnesia) 2,400 mg PO DAILY PRN PRN Reason: Constipation Nitroglycerin (Nitrostat) 0.4 mg SUBLINGUAL Q5M PRN PRN Reason: Chest Pain Pravastatin Sodium (Pravachol) 30 mg PO HS [facility] Last Admin: 02/08/18 19:52 Dose: 30 mg Objective - Vital Signs Vital signs: Vital Signs Temp 96.9 F L 02/09/18 11:12 Pulse 80 02/09/18 11:12 Resp 16 02/09/18 11:12 BP 124/46 02/09/18 11:12 Pulse Ox 97 02/09/18 11:12 Intake & Output 02/08/18 02/09/18 02/09/18 18:59 06:59 18:59 Intake Total 480 360 630 Output Total 1100 Balance -620 360 630 Weight 52.5 kg Intake: Intake, IV Titration 50 Amount cefTRIAXone 1,000 mg In 50 Sodium Chloride 0.9% 50 ml @ 100 mls/hr IVPB Q24HR [facility] Rx#:[id number] Oral 480 360 580 Output: Urine 1100 Other: Voiding Method Toilet Toilet Toilet # Voids 1 1 - Exam GENERAL: The patient is alert and oriented x3, not in any acute distress. HEENT: Pupils are round and equally reacting to light. EOMI. No scleral icterus. No conjunctival pallor. Normocephalic, atraumatic. CARDIOVASCULAR: S1 and S2 present. No murmurs, rubs, or gallops. PULMONARY: Chest is clear to auscultation, no wheezing or crackles. ABDOMEN: Soft, nontender, distended, normoactive bowel sounds. No palpable organomegaly. MUSCULOSKELETAL: No joint swelling or deformity. EXTREMITIES: No cyanosis, clubbing, or mild lower extremity edema. NEUROLOGICAL: Gross neurological examination did not reveal any focal deficits. - Labs CBC & Chem 7: 02/09/18 06:06 02/09/18 06:06 Labs: Abnormal Lab Results - Last 24 Hours (Table) 02/08/18 02/08/18 02/09/18 Range/Units 16:59 21:16 06:06 WBC 14.8 H (3.8-10.6) k/uL RBC 3.73 L (3.80-5.40) m/uL Hgb 9.8 L (11.4-16.0) gm/dL Hct 31.9 L (34.0-46.0) % MCHC 30.6 L (31.0-37.0) g/dL RDW 18.5 H (11.5-15.5) % Plt Count 552 H (150-450) k/uL Neutrophils # 12.4 H (1.3-7.7) k/uL Sodium (137-145) mmol/L BUN (7-17) mg/dL POC Glucose (mg/dL) 119 H 128 H (75-99) mg/dL Calcium (8.4-10.2) mg/dL AST (14-36) U/L Alkaline Phosphatase (38-126) U/L Total Protein (6.3-8.2) g/dL Albumin (3.5-5.0) g/dL 02/09/18 02/09/18 Range/Units 06:06 11:52 WBC (3.8-10.6) k/uL RBC (3.80-5.40) m/uL Hgb (11.4-16.0) gm/dL Hct (34.0-46.0) % MCHC (31.0-37.0) g/dL RDW (11.5-15.5) % Plt Count (150-450) k/uL Neutrophils # (1.3-7.7) k/uL Sodium 134 L (137-145) mmol/L BUN 29 H (7-17) mg/dL POC Glucose (mg/dL) 135 H (75-99) mg/dL Calcium 12.0 H (8.4-10.2) mg/dL AST 71 H (14-36) U/L Alkaline Phosphatase 172 H (38-126) U/L Total Protein 4.8 L (6.3-8.2) g/dL Albumin 2.2 L (3.5-5.0) g/dL Microbiology - Last 24 Hours (Table) 02/05/18 18:41 Blood Culture - Preliminary Blood No Growth after 72 hours 02/05/18 14:15 Gram Stain - Preliminary Ascites Fluid Body Fluid Culture - Preliminary Assessment and Plan Assessment: -Possible acute urinary tract infection patient will be placed back on IV Rocephin. -Leukocytosis -multiple lung masses bilaterally, largest in the right upper lobe measuring 4.5 cm, left pleural effusion, enlarged liver, suspect underlying masses, possible retroperitoneal adenopathy; compatible with metastatic disease per CT. possible new primary malignancy. -History of bilateral breast cancer; left breast cancer 1989, right-sided breast cancer 2007 -Hyperkalemia holding off on losartan and and Aldactone. -Hyperlipidemia -Carotid artery disease with recent CABG/MVR repair -Acute renal failure secondary to hypotension and anti-hypertensives -Hyperlipidemia -Mildly elevated troponin secondary to renal dysfunction patient doesn't have any chest pain. Plan: ontinue on current medication regime ,monitoring and symptomatic treatment. GI consulted regarding new liver mass. Aspirin, Plavix to be held 1 week as per Interventional radiology's recommendations. Prognosis guarded given multiple complex medical issues. The impression and plan of care has been dictated as directed. : I performed a history and examination of this patient, discussed the same with the dictator. I agree with the dictator's note ,documented as a scribe. Any additional findings or plans will be noted.
[2018-02-09 15:30] LABS: Appearance,Urine Cloudy (Clear); Bacteria,Urine Rare /hpf; Bilirubin,Urine Negative (Negative); Blood,Urine Negative (Negative); Color,Urine Yellow; Glucose,Urine (UA) Negative (Negative); Ketones,Urine Negative (Negative); Leukocyte Esterase,Urine Large (Negative); Mucus,Urine Rare /hpf; Nitrite,Urine Negative (Negative); PH, Urine 5.5 (5.0-8.0); Protein,Urine 1+ (Negative); Specific Gravity,Urine 1.023 (1.001-1.035); Squamous Epithelial Cell,Urine 2 /hpf (0-4); Urobilinogen,Urine <2.0 mg/dL (<2.0)
--- NOTE | 2018-02-09 16:20 | P.PN ---
Subjective Progress Note Date: 02/09/18 Principal diagnosis: Nodular densities, right upper lobe mass, rule out malignancy This is a 77-year-old white female patient of Dr. Alia giordano, who presented to the emergency department on 02/05/2018 at 1500 for evaluation of increasing generalized weakness, lightheadedness, dizziness. Patient had a three-vessel coronary artery bypass grafting, with DESOUZA to the LAD, reverse SVG to the RCA, and OM, and mitral valve repair and left atrial appendage exclusion on [address] Alvarez. Other medical history includes hypertension, hyperlipidemia, left breast cancer in 1989 with mastectomy with lymph node dissection followed by chemoradiation, and right breast cancer in 2007 with radiation, carotid artery disease status post left carotid endarterectomy, history of CVA, diabetes mellitus, nicotine dependence which is in remission. In the postoperative period patient had developed atrial fibrillation, currently in sinus rhythm. Patient also developed postoperative blood loss anemia, with the hemoglobin as low as 6.2 at the lowest, requiring blood transfusions. Her iron levels were found to be low, and patient did receive 2 iron transfusions. This admission her hemoglobin is 10.8. White count was 15.1 , platelet count is 687, sodium is 132, potassium is 5.5, anion gap was mildly elevated at 13.2, BUN was 39, creatinine was 1.4, alkaline phosphatase was 175, ALT was 50, AST was 85, proBNP was elevated at 9040, troponins were 0.142, 0.122 , and 0.134. Urinalysis showed small amount of blood, large leukocyte esterase , and WBCs. Patient denies any urinary symptoms.Denies any fever or chills. Denies any significant chest congestion, wheezing. No nausea or vomiting. No diarrhea. She has mild pretibial edema. Denied any chest pain, denied any hemoptysis or chest wall discomfort. Chest x-ray was taken and showed a mass present in the superior segment of right lower lobe or possibly right upper lobe showing approximately 4.7 cm and could be pleural based. No pneumothorax, there was smaller nodules present within the right lung, this was compared to the previous chest x-ray and were not seen there. There is a slight blunting of the left costophrenic angle. Today patient is seen in urination on selective care unit, she is resting comfortably in bed, in no significant distress, afebrile, room air pulse ox is 99%, hemodynamic was stable. Patient did have right thoracentesis on 07/31/2017 with drainage of 800 mL of pleural fluid, and the cultures were negative. No cytology was done. On 02/07/2018 patient seen in follow-up on selective care unit. Breathing has not much improved, yesterday we gave patient a dose of Lasix, net fluid balance is difficult to estimate as there was no accurate I and O's recorded. Patient' s weight has actually increased according to the recorded weights. No fever or chills, patient has been started on Zithromax and Rocephin, and today's chest x- ray showed multiple lung masses bilaterally, with the largest in the right upper lobe, and areas of nodular lesions. Right pleural effusion has resolved. CT of the chest without contrast was obtained, and showed multiple lung masses bilaterally, with the largest right upper lobe measuring 4.5 cm and adjacent to the pleura in the superior segment of the right lower lobe. There is approximately 20-30 lesions, areas of scarring, there were no definitive greater than 1 cm hilar or mediastinal lymph nodes, however the CAT scan was done without contrast. On 02/08/2018 patient seen in follow-up on selective care unit. Interventional radiology was consulted for fine-needle aspiration biopsy of the right lung mass , and it was recommended to obtain ultrasound of the liver as her weren't suspicious masses seen on the CT chest. Ultrasound of the liver showed enlargement with heterogeneity which was suspicious for diffuse metastatic disease, moderate right-sided hydronephrosis. IR requested aspirin and Plavix on hold at least for 7 days, heparin will be held as well. Worsening difficulty breathing, patient is likely comfortable, currently on room air with a pulse ox of 95%, she is afebrile, hemodynamically stable. She is having lower lumbar area back discomfort, but no acute distress. Lung sounds are clear to auscultation. She remains in sinus rhythm. He is afebrile. Cultures are negative. No new labs today. He has service has been consulted in regards to the ultrasound results. The patient is seen again today 02/09/2018 in follow-up on the selective care unit. She is currently sitting up in a chair at the bedside. She is awake and alert in no acute distress. She denies any worsening shortness of breath, cough or congestion. Maintaining good O2 saturations in the 90s on room air. Ascites fluid reveals no growth. Blood cultures reveal no growth. Count 14.8. Hemoglobin 9.8. Creatinine 0.97. She remains on ceftriaxone. The plan is for interventional radiology to perform FNA of the liver for diagnosis. Objective - Vital Signs Vital signs: Vital Signs Temp 97 F L 02/09/18 15:29 Pulse 82 02/09/18 15:29 Resp 16 02/09/18 15:29 BP 126/64 02/09/18 15:29 Pulse Ox 96 02/09/18 15:29 Intake & Output 02/08/18 02/09/18 02/09/18 18:59 06:59 18:59 Intake Total 480 360 830 Output Total 1100 Balance -620 360 830 Weight 52.5 kg Intake: Intake, IV Titration 50 Amount cefTRIAXone 1,000 mg In 50 Sodium Chloride 0.9% 50 ml @ 100 mls/hr IVPB Q24HR [facility] Rx#:[id number] Oral 480 360 780 Output: Urine 1100 Other: Voiding Method Toilet Toilet Toilet # Voids 1 1 - Exam GENERAL EXAM: Alert, pleasant, thin 77-year-old frail looking older female, comfortable in no apparent distress. HEAD: Normocephalic/atraumatic. EYES: Normal reaction of pupils, equal size. Conjunctiva pink, sclera white. NOSE: Clear with pink turbinates. THROAT: No erythema or exudates. NECK: No masses, no JVD, no thyroid enlargement, no adenopathy. CHEST: No chest wall deformity. Symmetrical expansion. LUNGS: Equal air entry with no crackles, wheeze, rhonchi or dullness. CVS: Regular rate and rhythm, normal S1 and S2, no gallops, no murmurs, no rubs ABDOMEN: Soft, nontender. No hepatosplenomegaly, normal bowel sounds, no guarding or rigidity. EXTREMITIES: No clubbing, mild pretibial edema no cyanosis, 2+ pulses and upper and lower extremities. MUSCULOSKELETAL: Muscle strength and tone normal. SPINE: No scoliosis or deformity SKIN: No rashes CENTRAL NERVOUS SYSTEM: Alert and oriented -3. No focal deficits, tone is normal in all 4 extremities. PSYCHIATRIC: Alert and oriented -3. Appropriate affect. Intact judgment and insight. - Labs CBC & Chem 7: 02/09/18 06:06 02/09/18 06:06 Labs: Abnormal Lab Results - Last 24 Hours (Table) 02/08/18 02/08/18 02/09/18 Range/Units 16:59 21:16 06:06 WBC 14.8 H (3.8-10.6) k/uL RBC 3.73 L (3.80-5.40) m/uL Hgb 9.8 L (11.4-16.0) gm/dL Hct 31.9 L (34.0-46.0) % MCHC 30.6 L (31.0-37.0) g/dL RDW 18.5 H (11.5-15.5) % Plt Count 552 H (150-450) k/uL Neutrophils # 12.4 H (1.3-7.7) k/uL Sodium (137-145) mmol/L BUN (7-17) mg/dL POC Glucose (mg/dL) 119 H 128 H (75-99) mg/dL Calcium (8.4-10.2) mg/dL AST (14-36) U/L Alkaline Phosphatase (38-126) U/L Total Protein (6.3-8.2) g/dL Albumin (3.5-5.0) g/dL Urine Appearance (Clear) Urine Protein (Negative) Ur Leukocyte Esterase (Negative) Urine Bacteria (None) /hpf Urine Mucus (None) /hpf 02/09/18 02/09/18 02/09/18 Range/Units 06:06 11:52 15:00 WBC (3.8-10.6) k/uL RBC (3.80-5.40) m/uL Hgb (11.4-16.0) gm/dL Hct (34.0-46.0) % MCHC (31.0-37.0) g/dL RDW (11.5-15.5) % Plt Count (150-450) k/uL Neutrophils # (1.3-7.7) k/uL Sodium 134 L (137-145) mmol/L BUN 29 H (7-17) mg/dL POC Glucose (mg/dL) 135 H (75-99) mg/dL Calcium 12.0 H (8.4-10.2) mg/dL AST 71 H (14-36) U/L Alkaline Phosphatase 172 H (38-126) U/L Total Protein 4.8 L (6.3-8.2) g/dL Albumin 2.2 L (3.5-5.0) g/dL Urine Appearance Cloudy H (Clear) Urine Protein 1+ H (Negative) Ur Leukocyte Esterase Large H (Negative) Urine Bacteria Rare H (None) /hpf Urine Mucus Rare H (None) /hpf Microbiology - Last 24 Hours (Table) 02/05/18 18:41 Blood Culture - Preliminary Blood No Growth after 72 hours 02/05/18 14:15 Gram Stain - Preliminary Ascites Fluid Body Fluid Culture - Preliminary Assessment and Plan Assessment: Assessment: #1. Right upper lobe mass, multiple nodular area bilaterally, possibly related to metastatic or new primary malignancy. Pt presented with weakness, dizziness, weight loss. Chest x-ray revealed a new right upper lobe mass, and new nodularity within the right lung not previously seen on the chest x-rays from September 2017. CT chest showed multiple areas of lung masses bilaterally, with the largest in the right upper lobe, adjacent to the pleura in the superior segment of the right lower lobe, there were approximately 20-30 lesions. Patient will be set up for fine-needle aspiration biopsy with interventional radiology either the liver or lung. #2. Multiple liver masses suspicious for diffuse metastatic disease #3. Leukocytosis #4. Urinary tract infection versus asymptomatic bacteriuria #5. Elevated troponins #6. Elevated proBNP of 9040, suggesting possibility of acute congestive heart failure, systolic in nature. Mildly impaired left ventricular systolic function with ejection fraction 40-45%. #7. Acute kidney injury #8. Mild hyponatremia #9. Coronary artery disease, severe mitral valve regurgitation, status post three-vessel coronary artery bypass grafting, with DESOUZA to LAD, reverse SVG to the RCA and OM, and mitral valve repair with exclusion of left atrial appendage , on 07/24/2017. Patient had postoperative A. fib, blood loss anemia requiring blood transfusions, small biapical pneumothoraces, and right sided pleural effusion requiring right-sided thoracentesis with drainage of 800 mL of pleural fluid, and the pleural fluid cultures were negative, no cytology was done. #10. History of left breast cancer in 1989 with ostectomy and lymph node resection, followed by chemoradiation, and chronic left arm lymphedema, history of right-sided breast cancer in 2008 that is post radiation. #11. Diabetes mellitus type 2 #12. Hypertension, hyperlipidemia #13. History of CVA #14. Carotid artery stenosis, status post left carotid endarterectomy Plan: The patient this was seen and evaluated by Dr. Barron. She is aware of her test results and the plan for the FNA for diagnosis. She is agreeable. We will continue to follow make further recommendations based on her clinical status. I, the cosigning physician, performed a history & physical examination of the patient. Lungs sounds are clear. Maintaining good O2 saturations in the 90s on room air. I discussed the assessment and plan of care with my nurse practitioner, Bertha Dinero. I attest to the above note as dictated by her.
--- NOTE | 2018-02-09 16:24 | CONS ---
CONSULTATION DATE OF CONSULTATION: February 09, 2018. REQUESTING PHYSICIAN: REASON FOR CONSULTATION: Liver masses. HISTORY OF PRESENT ILLNESS: The patient is a 77-year-old pleasant white female was admitted to the hospital because of generalized weakness, fatigue, not feeling well for the last few weeks duration. She has history of hypertension, hyperlipidemia, coronary artery disease. She underwent CABG as well as aortic valve replacement a few weeks ago. Also has history of breast cancer in 1989 with recurrence in 2007 followed by radiation and follows with Dr. Asencio closely. According to her family on outpatient basis, she was diagnosed with anemia and low iron levels and she was given 2 iron infusions in January by Dr. Asencio. Because of her progressive weight loss, she was admitted to the hospital. She had a chest x-ray that was abnormal and subsequently she had a CT of the chest performed yesterday that revealed multiple masses in the lung bilaterally suspicious for metastasis. Oncology evaluated the patient. The patient may be scheduled for a CT- guided lung biopsy but because she is on aspirin and Plavix, it has been on hold for 7 days. In the meantime, she also had ultrasound of the abdomen done yesterday that showed significant heterogenicities suspicious for metastasis. The patient presently denies any abdominal pain. She reports no nausea or vomiting. Denies any rectal bleeding or melena. Never had these symptoms in the past. She denies any recent weight loss. PAST MEDICAL HISTORY: Significant for diabetes mellitus, hypertension, hyperlipidemia, recent coronary artery bypass surgery, history of TIA in the past, breast cancer. PAST SURGICAL HISTORY: Lumpectomy, cholecystectomy, CABG in July of 2017 with mitral valve repair. SOCIAL HISTORY: Former smoker. No alcohol use. FAMILY HISTORY: Father had colon cancer. Mother had ovarian cancer. REVIEW OF SYSTEMS: Cardiopulmonary: She denies any chest pain, shortness of breath. GENITOURINARY: No dysuria. No hematuria. MUSCULOSKELETAL: Chronic back pain. NEUROLOGY: Unremarkable. Psychiatric unremarkable. ENT/vision unremarkable. Constitutional: She denies any weight loss. No fever, chills, night sweats. Hematology: Anemia. Neurology unremarkable. PHYSICAL EXAMINATION: She appears comfortable. No apparent distress. Vital signs stable. Blood pressure is 142/77, pulse 98, temperature 97. HEENT examination unremarkable. Conjunctivae pink. Sclerae anicteric. Oral cavity no lesions. Neck: No jugular venous distention or lymph node enlargement. The chest was clear to auscultation. HEART: Regular rate and rhythm. Abdomen is distended. Liver was palpable. At least 6 cm below the right costal margin. Hard in consistency and it extended to the left of the midline. There was no free fluid noted. Extremities: No pedal edema. Skin: No rashes. Neuro: She is awake, alert and oriented x3. No focal deficits. LABS: From today WBC is 14.5, hemoglobin 9.8, platelets 562. BUN and creatinine are 35 and 1.5 respectively. AST 71, ALT 46, alkaline phosphatase 172, bilirubin is 0.5. IMPRESSION: This is a lady who presents to the hospital with progressive fatigue, weakness, not feeling well for the last several weeks duration. CT of the chest showed multiple masses in the lung suspicious of metastasis disease. Ultrasound of the abdomen also showed a severe heterogenicity of the liver consistent with possible metastasis. The patient has been on aspirin and Plavix for underlying coronary artery disease which has been on hold for 2 days. She was already evaluated by Oncology and the plan was to proceed with CT-guided lung biopsy which will be performed early next week. The studies are consistent with metastatic disease liver disease and at this time, either a lung biopsy or liver biopsy would give us a definitive diagnosis. No need for any other imaging studies at this time. We will follow her closely during her hospital stay. Thank you for this consultation. ERON / DEBO: [id number] /
[2018-02-09 17:23] LABS: Glucose,Whole Blood 117 mg/dL (75-99)
[2018-02-09 17:27] LABS: Glucose,Whole Blood 143 mg/dL (75-99)
[2018-02-09] MEDS ORDERED: ZOLEDRONIC ACID 4 MG in SODIUM CHLORIDE 0.9% 100 ML IV NR (17:30)
[2018-02-09] MEDS: SODIUM CHLORIDE 0.9% 1,000 ML IV SCH (20:19)
[2018-02-09 20:20] LABS: Glucose,Whole Blood 156 mg/dL (75-99)
--- NOTE | 2018-02-09 20:35 | PN ---
PROGRESS NOTE DATE OF SERVICE: February 09, 2018. CHIEF COMPLAINT: Tired. Breana is seen today as a followup. She feels tired. No fever or chills, but overall she is weak and fatigued. No melena, hematochezia, hematuria or hemoptysis. Her medication reviewed in her electronic record. PHYSICAL EXAMINATION: She is alert and answers questions appropriately. Does not appear to be in distress. However, she is cachectic-looking. Her vital signs are temperature 97.0, afebrile, pulse 82 and regular, respirations 16, blood pressure 126/64. HEENT: Normocephalic, atraumatic. NECK: Supple. Chest equal expansion bilaterally. Lungs are clear to auscultation. Heart is regular rate and rhythm. ABDOMEN: Soft. No tenderness. EXTREMITIES: No edema. LABORATORY DATA: WBC of 14.8, hemoglobin 9.8, hematocrit 31.9, platelets are 552. Sodium 134, potassium 4.8, chloride 108, CO2 is 22, BUN is 29, creatinine 0.97. Her calcium is 12. IMPRESSION: 1. Multiple lung masses and liver lesions and this is highly suspicious for metastatic disease. The patient had a remote history of breast carcinoma, definitely recurrent breast carcinoma with metastatic disease is highly suspected, other pathology also in the differential diagnosis. 2. Hypercalcemia. This is likely related to underlying malignancy. 3. Anemia of chronic disease. 4. Reactive thrombocytosis and leukocytosis to underlying malignancy. RECOMMENDATION: 1. I discussed the above clinical impression with the patient and her family. 2. Awaiting to proceed with ultrasound guided liver biopsy for tissue diagnosis. The patient has to be off Plavix. 3. In regard to her hypercalcemia, the patient will be started on vigorous IV hydration and also will give her a dose of pamidronate. 4. We will give also would give her a dose of IV Zometa. Thank you very much. MMODL / IJN: [id number] /
[2018-02-09] MEDS: PRAVASTATIN SODIUM 20 MG TAB PO SCH (21:54)
[2018-02-10 07:07] LABS: Glucose,Whole Blood 81 mg/dL (75-99)
[2018-02-10] MEDS: SODIUM CHLORIDE 0.9% 1,000 ML IV SCH ×3 (07:54→20:25)
[2018-02-10] MEDS: INSULIN ASPART 100 UNIT/ML 1 ML 10 ML VIAL SQ SCH ×4 (07:59→22:31)
[2018-02-10 08:07] LABS: Calcium 11.9 mg/dL (8.4-10.2); Total Bilirubin 0.6 mg/dL (0.2-1.3); Total Protein 4.4 g/dL (6.3-8.2)
[2018-02-10] MEDS: CHOLECALCIFEROL 1,000 UNIT TAB PO SCH (08:07)
[2018-02-10] MEDS: FERROUS SULFATE 325 MG TAB PO SCH (08:07)
[2018-02-10] MEDS: CARVEDILOL 3.125 MG TAB PO SCH (08:07)
--- NOTE | 2018-02-10 09:46 | PN ---
PROGRESS NOTE DATE OF SERVICE: February 10, 2018 Patient is a 77-year-old pleasant white female seen in consultation yesterday for multiple liver masses noted on ultrasound of the abdomen, suspicious for metastatic liver disease. The patient has a known history of breast cancer with recurrence in 2007. She also had a CT of the chest done during this hospitalization, which showed multiple lesions in the lungs suspicious for metastasis. She was evaluated by Dr. Asencio yesterday also. The patient does not feel very well. She feels extremely weak and tired. She had an episode of emesis this morning. Had some epigastric discomfort. PHYSICAL EXAMINATION: Appears comfortable. No apparent distress. Vital signs is stable. Blood pressure 126/64, pulse rate 82, temperature 97. HEENT examination unremarkable. Conjunctivae pink. Sclerae anicteric. Oral cavity no lesions. Neck no jugular venous distention or lymph node enlargement. Chest was clear to auscultation. HEART: Regular rate and rhythm. ABDOMEN: Soft, it was distended. Liver was palpable 4-5 cm below the right costal margin extending into the left upper quadrant area. It was very hard in consistency and tender to palpation. Extremities: No pedal edema. Skin: No rashes. Neuro: She is alert and oriented x3. No focal deficits. LABS: From today AST 69, ALT is 45, alkaline phosphatase is 167, T bilirubin is normal. IMPRESSION: 1. Multiple lesions in the lung and in the liver suspicious for metastatic liver disease. The patient is scheduled for liver biopsy but because she has been on aspirin and Plavix, it has been on hold until early next week. 2. Episode of nausea, vomiting which has resolved. 3. Mild elevation of serum transaminases most likely infiltrative pattern from possible metastasis. RECOMMENDATIONS: 1. Await liver biopsy early next week. 2. Continue with antiemetics for nausea and vomiting. 3. We will follow her closely during her hospital stay. Thank you for this consultation. MMODL / IJN: [id number] /
[2018-02-10 11:03] LABS: Glucose,Whole Blood 77 mg/dL (75-99)
[2018-02-10] MEDS: ACETAMINOPHEN TAB 500 MG TAB PO PRN ×2 (11:34→20:28)
--- NOTE | 2018-02-10 15:10 | P.PN ---
Subjective Progress Note Date: 02/10/18 This is a 77-year-old white female patient of Dr. Alia giordano, who presented to the emergency department on 02/05/2018 at 1500 for evaluation of increasing generalized weakness, lightheadedness, dizziness. Patient had a three-vessel coronary artery bypass grafting, with DESOUZA to the LAD, reverse SVG to the RCA, and OM, and mitral valve repair and left atrial appendage exclusion on [address] Alvarez. Other medical history includes hypertension, hyperlipidemia, left breast cancer in 1989 with mastectomy with lymph node dissection followed by chemoradiation, and right breast cancer in 2007 with radiation, carotid artery disease status post left carotid endarterectomy, history of CVA, diabetes mellitus, nicotine dependence which is in remission. In the postoperative period patient had developed atrial fibrillation, currently in sinus rhythm. Patient also developed postoperative blood loss anemia, with the hemoglobin as low as 6.2 at the lowest, requiring blood transfusions. Her iron levels were found to be low, and patient did receive 2 iron transfusions. This admission her hemoglobin is 10.8. White count was 15.1 , platelet count is 687, sodium is 132, potassium is 5.5, anion gap was mildly elevated at 13.2, BUN was 39, creatinine was 1.4, alkaline phosphatase was 175, ALT was 50, AST was 85, proBNP was elevated at 9040, troponins were 0.142, 0.122 , and 0.134. Urinalysis showed small amount of blood, large leukocyte esterase , and WBCs. Patient denies any urinary symptoms.Denies any fever or chills. Denies any significant chest congestion, wheezing. No nausea or vomiting. No diarrhea. She has mild pretibial edema. Denied any chest pain, denied any hemoptysis or chest wall discomfort. Chest x-ray was taken and showed a mass present in the superior segment of right lower lobe or possibly right upper lobe showing approximately 4.7 cm and could be pleural based. No pneumothorax, there was smaller nodules present within the right lung, this was compared to the previous chest x-ray and were not seen there. There is a slight blunting of the left costophrenic angle. Today patient is seen in urination on selective care unit, she is resting comfortably in bed, in no significant distress, afebrile, room air pulse ox is 99%, hemodynamic was stable. Patient did have right thoracentesis on 07/31/2017 with drainage of 800 mL of pleural fluid, and the cultures were negative. No cytology was done. On 02/07/2018 patient seen in follow-up on selective care unit. Breathing has not much improved, yesterday we gave patient a dose of Lasix, net fluid balance is difficult to estimate as there was no accurate I and O's recorded. Patient' s weight has actually increased according to the recorded weights. No fever or chills, patient has been started on Zithromax and Rocephin, and today's chest x- ray showed multiple lung masses bilaterally, with the largest in the right upper lobe, and areas of nodular lesions. Right pleural effusion has resolved. CT of the chest without contrast was obtained, and showed multiple lung masses bilaterally, with the largest right upper lobe measuring 4.5 cm and adjacent to the pleura in the superior segment of the right lower lobe. There is approximately 20-30 lesions, areas of scarring, there were no definitive greater than 1 cm hilar or mediastinal lymph nodes, however the CAT scan was done without contrast. On 02/08/2018 patient seen in follow-up on selective care unit. Interventional radiology was consulted for fine-needle aspiration biopsy of the right lung mass , and it was recommended to obtain ultrasound of the liver as her weren't suspicious masses seen on the CT chest. Ultrasound of the liver showed enlargement with heterogeneity which was suspicious for diffuse metastatic disease, moderate right-sided hydronephrosis. IR requested aspirin and Plavix on hold at least for 7 days, heparin will be held as well. Worsening difficulty breathing, patient is likely comfortable, currently on room air with a pulse ox of 95%, she is afebrile, hemodynamically stable. She is having lower lumbar area back discomfort, but no acute distress. Lung sounds are clear to auscultation. She remains in sinus rhythm. He is afebrile. Cultures are negative. No new labs today. He has service has been consulted in regards to the ultrasound results. The patient is seen again today 02/09/2018 in follow-up on the selective care unit. She is currently sitting up in a chair at the bedside. She is awake and alert in no acute distress. She denies any worsening shortness of breath, cough or congestion. Maintaining good O2 saturations in the 90s on room air. Ascites fluid reveals no growth. Blood cultures reveal no growth. Count 14.8. Hemoglobin 9.8. Creatinine 0.97. She remains on ceftriaxone. The plan is for interventional radiology to perform FNA of the liver for diagnosis. On 02/10/2018 I'm seeing this patient for a follow-up H is calm and comfortable. She is resting comfortably in bed. No specific complaints for now. She is off Plavix and she is awaiting a liver biopsy to establish diagnosis of metastatic cancer. This will be needed knowing that she has history of breast cancer and currently she has extensive metastatic disease involving the liver and the lungs. Breast cancer is suspected. She had no chest pain. No cough or sputum production. No other new complaints for now. The blood work is all stable. I noted the the calcium being slightly high and this raises the suspicion for skeletal metastases also. Today's calcium level is at 11.9. Objective - Vital Signs Vital signs: Vital Signs Temp 97.6 F 02/10/18 12:15 Pulse 93 02/10/18 12:15 Resp 16 02/10/18 12:15 BP 144/65 02/10/18 12:15 Pulse Ox 98 02/10/18 12:15 Intake & Output 02/09/18 02/10/18 02/10/18 18:59 06:59 18:59 Intake Total 830 1390 Balance 830 1390 Weight 52.5 kg Intake: Intake, IV Titration 50 850 Amount Sodium Chloride 0.9% 1, 750 000 ml @ 100 mls/hr IV . Q10H MITZY Rx#:[id number] Zoledronic Acid 4 mg In 100 Sodium Chloride 0.9% 100 ml @ 315 mls/hr IV ONCE NR Rx#:[id number] cefTRIAXone 1,000 mg In 50 Sodium Chloride 0.9% 50 ml @ 100 mls/hr IVPB Q24HR MITZY Rx#:[id number] Oral 780 540 Other: Voiding Method Toilet Toilet Toilet # Voids 1 1 1 - Exam GENERAL EXAM: Alert, pleasant, thin 77-year-old frail looking older female, comfortable in no apparent distress. HEAD: Normocephalic/atraumatic. EYES: Normal reaction of pupils, equal size. Conjunctiva pink, sclera white. NOSE: Clear with pink turbinates. THROAT: No erythema or exudates. NECK: No masses, no JVD, no thyroid enlargement, no adenopathy. CHEST: No chest wall deformity. Symmetrical expansion. LUNGS: Equal air entry with no crackles, wheeze, rhonchi or dullness. CVS: Regular rate and rhythm, normal S1 and S2, no gallops, no murmurs, no rubs ABDOMEN: Soft, nontender. No hepatosplenomegaly, normal bowel sounds, no guarding or rigidity. EXTREMITIES: No clubbing, mild pretibial edema no cyanosis, 2+ pulses and upper and lower extremities. MUSCULOSKELETAL: Muscle strength and tone normal. SPINE: No scoliosis or deformity SKIN: No rashes CENTRAL NERVOUS SYSTEM: Alert and oriented -3. No focal deficits, tone is normal in all 4 extremities. PSYCHIATRIC: Alert and oriented -3. Appropriate affect. Intact judgment and insight. - Labs CBC & Chem 7: 02/09/18 06:06 02/10/18 07:00 Labs: Abnormal Lab Results - Last 24 Hours (Table) 02/09/18 02/09/18 02/09/18 Range/Units 15:00 16:46 17:21 Sodium (137-145) mmol/L BUN (7-17) mg/dL Creatinine (0.52-1.04) mg/dL Glucose (74-99) mg/dL POC Glucose (mg/dL) 143 H 117 H (75-99) mg/dL Calcium (8.4-10.2) mg/dL AST (14-36) U/L Alkaline Phosphatase (38-126) U/L Total Protein (6.3-8.2) g/dL Albumin (3.5-5.0) g/dL Urine Appearance Cloudy H (Clear) Urine Protein 1+ H (Negative) Ur Leukocyte Esterase Large H (Negative) Urine WBC 141 H (0-5) /hpf Urine Bacteria Rare H (None) /hpf Urine Mucus Rare H (None) /hpf 02/09/18 02/10/18 Range/Units 20:17 07:00 Sodium 134 L (137-145) mmol/L BUN 29 H (7-17) mg/dL Creatinine 1.05 H (0.52-1.04) mg/dL Glucose 70 L (74-99) mg/dL POC Glucose (mg/dL) 156 H (75-99) mg/dL Calcium 11.9 H (8.4-10.2) mg/dL AST 69 H (14-36) U/L Alkaline Phosphatase 167 H (38-126) U/L Total Protein 4.4 L (6.3-8.2) g/dL Albumin 2.0 L (3.5-5.0) g/dL Urine Appearance (Clear) Urine Protein (Negative) Ur Leukocyte Esterase (Negative) Urine WBC (0-5) /hpf Urine Bacteria (None) /hpf Urine Mucus (None) /hpf Microbiology - Last 24 Hours (Table) 02/05/18 14:15 Anaerobic Culture - Final Ascites Fluid 02/09/18 15:00 Urine Culture - Preliminary Urine,Voided 02/05/18 18:41 Blood Culture - Preliminary Blood No Growth after 96 hours 02/05/18 14:15 Gram Stain - Final Ascites Fluid Body Fluid Culture - Final Assessment and Plan Plan: Assessment: #1. Diffuse pulmonary metastases. CT chest showed multiple areas of lung masses bilaterally, with the largest in the right upper lobe, adjacent to the pleura in the superior segment of the right lower lobe, there were approximately 20-30 lesions. Patient will be set up for fine-needle aspiration biopsy with interventional radiology either the liver or lung. #2. Multiple liver masses suspicious for diffuse metastatic disease #3. Leukocytosis #4. Urinary tract infection versus asymptomatic bacteriuria #5. Elevated troponins #6. Elevated proBNP of 9040, suggesting possibility of acute congestive heart failure, systolic in nature. Mildly impaired left ventricular systolic function with ejection fraction 40-45%. #7. Acute kidney injury #8. Mild hyponatremia #9. Coronary artery disease, severe mitral valve regurgitation, status post three-vessel coronary artery bypass grafting, with DESOUZA to LAD, reverse SVG to the RCA and OM, and mitral valve repair with exclusion of left atrial appendage , on 07/24/2017. Patient had postoperative A. fib, blood loss anemia requiring blood transfusions, small biapical pneumothoraces, and right sided pleural effusion requiring right-sided thoracentesis with drainage of 800 mL of pleural fluid, and the pleural fluid cultures were negative, no cytology was done. #10. History of left breast cancer in 1989 with ostectomy and lymph node resection, followed by chemoradiation, and chronic left arm lymphedema, history of right-sided breast cancer in 2007 that is post radiation. #11. Diabetes mellitus type 2 #12. Hypertension, hyperlipidemia #13. History of CVA #14. Carotid artery stenosis, status post left carotid endarterectomy #15 hypercalcemia Plan Keep the patient off Plavix. Interventional radiology to biopsy either the liver or the pulmonary lesions to establish tissue diagnosis. Monitor the calcium level and I do suspect skeletal metastases as the patient's calcium level has been borderline elevated. Suspect metastatic breast cancer although alternative sources of malignancies cannot be completely excluded. We'll continue to follow. The patient will stay in hospital to complete his workup done.
[2018-02-10 16:52] LABS: Glucose,Whole Blood 166 mg/dL (75-99)
[2018-02-10 17:31] LABS: Glucose,Whole Blood 148 mg/dL (75-99)
--- NOTE | 2018-02-10 18:34 | PN ---
PROGRESS NOTE DATE OF SERVICE: February 10, 2018. CHIEF COMPLAINT: Tired. Breana is seen today in followup. She feels tired, but she is better than yesterday, but overall she feels better than yesterday. She denies any significant pain. No nausea or vomiting. However, she is constipated. Her medication reviewed in electronic record. PHYSICAL EXAMINATION: She is alert and oriented x3. She does not appear to be in distress. Well developed, however, she is somewhat cachectic-looking. Her vital signs are temperature 97.6, pulse is 93, respirations 16, blood pressure 144/65. HEENT: Normocephalic, atraumatic. NECK: Supple. Chest equal expansion bilaterally. LUNGS: Clear to auscultation. Heart is regular rate and rhythm. ABDOMEN: Soft. No tenderness. Extremities revealed no edema. LABORATORY DATA: From today, sodium 134, potassium 5.0, chloride 107, CO2 is 22, BUN is 29, creatinine 1.05. Her calcium is 11.9. IMPRESSION: 1. Metastatic bilateral lung masses and multiple liver liver lesions suspicious for metastatic malignancy. She had previous history of breast carcinoma and this is highly suspected, although other primary cannot be excluded. 2. Hypercalcemia related to malignancy and dehydration as well. 3. Anemia of chronic disease. 4. Reactive thrombocytosis and leukocytosis to underlying malignancy. RECOMMENDATIONS: 1. The patient already received a dose of Zometa yesterday. 2. Continue IV hydration. 3. Monitor electrolytes very closely. 4. Awaiting ultrasound guided liver biopsy next week. MMODL / IJN: [id number] /
--- NOTE | 2018-02-10 19:13 | PN ---
PROGRESS NOTE DATE OF SERVICE: 02/10/2018. This 77-year-old woman who was admitted with acute UTI is on IV Rocephin. The patient also had multiple lung mass also. No chest pain. No palpitations. No fever. EXAM: Alert and oriented x3. Pulse is 93, blood pressure 140/64, respirations 16, temperature 97.2, pulse ox 98% on room air. HEENT: Conjunctivae normal. NECK: No jugular venous distention. CARDIOVASCULAR: S1, S2. RESPIRATORY: Breath sounds diminished in the bases. no rhonchi, no crackles. ABDOMEN: Soft, nontender hepatomegaly firm. LEGS: No edema. NERVOUS SYSTEM: No focal deficits. LABS: Sodium 134, potassium 5. Other labs are noted. ASSESSMENT: 1. Acute urinary tract infection on IV Rocephin. 2. Leukocytosis. 3. Multiple lung masses bilaterally. hepatomeagly- for liver biopsy 4. History of bilateral breast cancer. 5. Hyperkalemia. 6. Hyperlipidemia. 7. Coronary artery disease with recent CABG and mitral valve repair. 8. Acute renal failure secondary to hypertension. 9. Hypertension. 10.Hyperlipidemia. 11.Mild elevated troponin secondary to renal insufficiency. RECOMMENDATIONS AND DISCUSSION: I recommend to continue current management and symptomatic treatment. Otherwise at this time I recommend continue with empiric antibiotics. Closely follow with multiple consultants. Guarded prognosis because of multiple complex medical issues. Further recommendations to follow. MMODL / IJN: [id number] / EVELYNE
[2018-02-10] MEDS: PRAVASTATIN SODIUM 20 MG TAB PO SCH (20:24)
[2018-02-10 20:30] LABS: Glucose,Whole Blood 85 mg/dL (75-99)
[2018-02-11 06:57] LABS: Glucose,Whole Blood 71 mg/dL (75-99)
[2018-02-11] MEDS: FERROUS SULFATE 325 MG TAB PO SCH (09:35)
[2018-02-11] MEDS: CHOLECALCIFEROL 1,000 UNIT TAB PO SCH (09:35)
[2018-02-11] MEDS: INSULIN ASPART 100 UNIT/ML 1 ML 10 ML VIAL SQ SCH ×4 (09:35→20:16)
[2018-02-11] MEDS: CARVEDILOL 3.125 MG TAB PO SCH (09:38)
[2018-02-11 10:26] LABS: Anisocytosis Slight; Basophils % (A) 0 %; Eosinophils # (A) 0.1 k/uL (0-0.7); Eosinophils % (A) 1 %; HCT 33.2 % (34.0-46.0); Hypochromasia Marked; Lymphocytes # (A) 1.2 k/uL (1.0-4.8); Lymphocytes % (A) 7 %; MCH 26.2 pg (25.0-35.0); MCV 87.2 fL (80.0-100.0); Mean Platelet Volume 7.7; Monocytes % (A) 6 %; Neutrophils # (A) 14.2 k/uL (1.3-7.7); Neutrophils % (A) 85 %; Platelet Count 529 k/uL (150-450); RBC 3.81 m/uL (3.80-5.40); RDW 18.5 % (11.5-15.5); WBC 16.7 k/uL (3.8-10.6)
[2018-02-11 10:51] LABS: Albumin 2.1 g/dL (3.5-5.0); Calcium 10.9 mg/dL (8.4-10.2); Potassium 5.1 mmol/L (3.5-5.1); Total Bilirubin 0.6 mg/dL (0.2-1.3); Total Protein 4.5 g/dL (6.3-8.2)
[2018-02-11 11:37] LABS: Glucose,Whole Blood 97 mg/dL (75-99)
--- NOTE | 2018-02-11 13:00 | P.PN ---
Subjective Progress Note Date: 02/11/18 Principal diagnosis: Nodular densities, right upper lobe mass, rule out malignancy This is a 77-year-old white female patient of Dr. Alia giordano, who presented to the emergency department on 02/05/2018 at 1500 for evaluation of increasing generalized weakness, lightheadedness, dizziness. Patient had a three-vessel coronary artery bypass grafting, with DESOUZA to the LAD, reverse SVG to the RCA, and OM, and mitral valve repair and left atrial appendage exclusion on [address] Alvarez. Other medical history includes hypertension, hyperlipidemia, left breast cancer in 1989 with mastectomy with lymph node dissection followed by chemoradiation, and right breast cancer in 2007 with radiation, carotid artery disease status post left carotid endarterectomy, history of CVA, diabetes mellitus, nicotine dependence which is in remission. In the postoperative period patient had developed atrial fibrillation, currently in sinus rhythm. Patient also developed postoperative blood loss anemia, with the hemoglobin as low as 6.2 at the lowest, requiring blood transfusions. Her iron levels were found to be low, and patient did receive 2 iron transfusions. This admission her hemoglobin is 10.8. White count was 15.1 , platelet count is 687, sodium is 132, potassium is 5.5, anion gap was mildly elevated at 13.2, BUN was 39, creatinine was 1.4, alkaline phosphatase was 175, ALT was 50, AST was 85, proBNP was elevated at 9040, troponins were 0.142, 0.122 , and 0.134. Urinalysis showed small amount of blood, large leukocyte esterase , and WBCs. Patient denies any urinary symptoms.Denies any fever or chills. Denies any significant chest congestion, wheezing. No nausea or vomiting. No diarrhea. She has mild pretibial edema. Denied any chest pain, denied any hemoptysis or chest wall discomfort. Chest x-ray was taken and showed a mass present in the superior segment of right lower lobe or possibly right upper lobe showing approximately 4.7 cm and could be pleural based. No pneumothorax, there was smaller nodules present within the right lung, this was compared to the previous chest x-ray and were not seen there. There is a slight blunting of the left costophrenic angle. Today patient is seen in urination on selective care unit, she is resting comfortably in bed, in no significant distress, afebrile, room air pulse ox is 99%, hemodynamic was stable. Patient did have right thoracentesis on 07/31/2017 with drainage of 800 mL of pleural fluid, and the cultures were negative. No cytology was done. On 02/07/2018 patient seen in follow-up on selective care unit. Breathing has not much improved, yesterday we gave patient a dose of Lasix, net fluid balance is difficult to estimate as there was no accurate I and O's recorded. Patient' s weight has actually increased according to the recorded weights. No fever or chills, patient has been started on Zithromax and Rocephin, and today's chest x- ray showed multiple lung masses bilaterally, with the largest in the right upper lobe, and areas of nodular lesions. Right pleural effusion has resolved. CT of the chest without contrast was obtained, and showed multiple lung masses bilaterally, with the largest right upper lobe measuring 4.5 cm and adjacent to the pleura in the superior segment of the right lower lobe. There is approximately 20-30 lesions, areas of scarring, there were no definitive greater than 1 cm hilar or mediastinal lymph nodes, however the CAT scan was done without contrast. On 02/08/2018 patient seen in follow-up on selective care unit. Interventional radiology was consulted for fine-needle aspiration biopsy of the right lung mass , and it was recommended to obtain ultrasound of the liver as her weren't suspicious masses seen on the CT chest. Ultrasound of the liver showed enlargement with heterogeneity which was suspicious for diffuse metastatic disease, moderate right-sided hydronephrosis. IR requested aspirin and Plavix on hold at least for 7 days, heparin will be held as well. Worsening difficulty breathing, patient is likely comfortable, currently on room air with a pulse ox of 95%, she is afebrile, hemodynamically stable. She is having lower lumbar area back discomfort, but no acute distress. Lung sounds are clear to auscultation. She remains in sinus rhythm. He is afebrile. Cultures are negative. No new labs today. He has service has been consulted in regards to the ultrasound results. On 02/11/2018 patient seen in follow-up on medical surgical floor. She is dyspneic with any activity, generally weak, and fatigued. Her Plavix and aspirin have been on hold, and the plan is to proceed with ultrasound-guided liver biopsy today, and possibly right upper lobe lung mass biopsy. Vital signs are stable, room air pulse ox is 95%, she is afebrile, lung sounds are positive for coarse crackles at the right lower lobe base. No wheezing, no rhonchi, no phlegm production. Objective - Vital Signs Vital signs: Vital Signs Temp 98.7 F 02/11/18 05:00 Pulse 82 02/11/18 08:45 Resp 16 02/11/18 08:45 BP 136/63 02/11/18 05:00 Pulse Ox 95 02/11/18 05:00 Intake & Output 02/10/18 02/11/18 02/11/18 18:59 06:59 18:59 Other: Voiding Method Toilet Toilet Toilet # Voids 1 2 - Exam GENERAL EXAM: Alert, pleasant, thin 77-year-old frail looking older female, comfortable in no apparent distress. HEAD: Normocephalic/atraumatic. EYES: Normal reaction of pupils, equal size. Conjunctiva pink, sclera white. NOSE: Clear with pink turbinates. THROAT: No erythema or exudates. NECK: No masses, no JVD, no thyroid enlargement, no adenopathy. CHEST: No chest wall deformity. Symmetrical expansion. LUNGS: Equal air entry with crackles at the right lower base posteriorly, wheeze , rhonchi or dullness. CVS: Regular rate and rhythm, normal S1 and S2, no gallops, no murmurs, no rubs ABDOMEN: Soft, nontender. No hepatosplenomegaly, normal bowel sounds, no guarding or rigidity. EXTREMITIES: No clubbing, mild pretibial edema no cyanosis, 2+ pulses and upper and lower extremities. MUSCULOSKELETAL: Muscle strength and tone normal. SPINE: No scoliosis or deformity SKIN: No rashes CENTRAL NERVOUS SYSTEM: Alert and oriented -3. No focal deficits, tone is normal in all 4 extremities. PSYCHIATRIC: Alert and oriented -3. Appropriate affect. Intact judgment and insight. - Labs CBC & Chem 7: 02/11/18 09:02 02/11/18 09:02 Labs: Abnormal Lab Results - Last 24 Hours (Table) 02/10/18 02/10/18 02/11/18 Range/Units 16:50 17:29 06:55 WBC (3.8-10.6) k/uL Hgb (11.4-16.0) gm/dL Hct (34.0-46.0) % MCHC (31.0-37.0) g/dL RDW (11.5-15.5) % Plt Count (150-450) k/uL Neutrophils # (1.3-7.7) k/uL Sodium (137-145) mmol/L Chloride (98-107) mmol/L Carbon Dioxide (22-30) mmol/L BUN (7-17) mg/dL Glucose (74-99) mg/dL POC Glucose (mg/dL) 166 H 148 H 71 L (75-99) mg/dL Calcium (8.4-10.2) mg/dL AST (14-36) U/L Alkaline Phosphatase (38-126) U/L Total Protein (6.3-8.2) g/dL Albumin (3.5-5.0) g/dL 02/11/18 02/11/18 Range/Units 09:02 09:02 WBC 16.7 H (3.8-10.6) k/uL Hgb 10.0 L (11.4-16.0) gm/dL Hct 33.2 L (34.0-46.0) % MCHC 30.0 L (31.0-37.0) g/dL RDW 18.5 H (11.5-15.5) % Plt Count 529 H (150-450) k/uL Neutrophils # 14.2 H (1.3-7.7) k/uL Sodium 133 L (137-145) mmol/L Chloride 109 H (98-107) mmol/L Carbon Dioxide 19 L (22-30) mmol/L BUN 27 H (7-17) mg/dL Glucose 70 L (74-99) mg/dL POC Glucose (mg/dL) (75-99) mg/dL Calcium 10.9 H (8.4-10.2) mg/dL AST 76 H (14-36) U/L Alkaline Phosphatase 200 H (38-126) U/L Total Protein 4.5 L (6.3-8.2) g/dL Albumin 2.1 L (3.5-5.0) g/dL Microbiology - Last 24 Hours (Table) 02/05/18 18:41 Blood Culture - Preliminary Blood No Growth after 120 hours Assessment and Plan Plan: Assessment: #1. Right upper lobe mass, multiple nodular area bilaterally, possibly related to metastatic or new primary malignancy. Pt presented with weakness, dizziness, weight loss. Chest x-ray revealed a new right upper lobe mass, and new nodularity within the right lung not previously seen on the chest x-rays from September 2017. CT chest showed multiple areas of lung masses bilaterally, with the largest in the right upper lobe, adjacent to the pleura in the superior segment of the right lower lobe, there were approximately 20-30 lesions. Patient will be set up for fine-needle aspiration biopsy with interventional radiology #2. Multiple liver masses suspicious for diffuse metastatic disease #3. Leukocytosis #4. Urinary tract infection versus asymptomatic bacteriuria #5. Elevated troponins #6. Elevated proBNP of 9040, suggesting possibility of acute congestive heart failure, but clinically patient's volume status does not seem to be overloaded at this time #7. Acute kidney injury #8. Mild hyponatremia #9. Coronary artery disease, severe mitral valve regurgitation, status post three-vessel coronary artery bypass grafting, with DESOUZA to LAD, reverse SVG to the RCA and OM, and mitral valve repair with exclusion of left atrial appendage , on 07/24/2017. Patient had postoperative A. fib, blood loss anemia requiring blood transfusions, small biapical pneumothoraces, and right sided pleural effusion requiring right-sided thoracentesis with drainage of 800 mL of pleural fluid, and the pleural fluid cultures were negative, no cytology was done. #10. History of left breast cancer in 1989 with ostectomy and lymph node resection, followed by chemoradiation, and chronic left arm lymphedema, history of right-sided breast cancer in 2007 that is post radiation. #11. Diabetes mellitus type 2 #12. Hypertension, hyperlipidemia #13. History of CVA #14. Carotid artery stenosis, status post left carotid endarterectomy Plan: Proceed with ultrasound-guided liver biopsy. Continue with the same medical treatments, continue empiric antibiotics. Findings of the CT chest and ultrasound the liver are highly suspicious for diffuse metastasis. Will continue to follow I performed a history & physical examination of the patient and discussed their management with my nurse practitioner, Lizzeth Nunes. I reviewed the nurse practitioner's note and agree with the documented findings and plan of care. Lung sounds are positive for clear lungs. The findings and the impression was discussed with the patient. I attest to the documentation by the nurse practitioner. Time with Patient: Less than 30
[2018-02-11 17:33] LABS: Glucose,Whole Blood 122 mg/dL (75-99)
[2018-02-11] MEDS: SODIUM CHLORIDE 0.9% 1,000 ML IV SCH ×2 (17:42→20:17)
--- NOTE | 2018-02-11 17:45 | P.PN ---
Subjective Progress Note Date: 02/11/18 Progress note being dictated for Dr. Oreilly. Interval history:77-year-old wasn't female came in with complaints of generalized tiredness when questioned patient did complain of dysuria that he does have significantly abnormal urine subsequently admitted with Rocephin. Patient is very thin built had a recent coronary artery bypass graft surgery along with a valve replacement surgery. Patient has multiple other issues going on at this time. Patient chest x-ray was obtained which showed a small masslike consolidation because of which pulmonology was consulted I did review the images with Dr. Barron picture enlarger in the this mass was not present in previous x-rays because of which pulmonology believes may be pneumonia, recommending an of the chest x-ray tomorrow if it's still shows this masslike consolidation will obtain a CAT scan of the chest that at this time her creatinine is borderline. Patient is comparing of cough yellowish sputum production. Because of which pulmonology is recommending to add azithromycin. Patient does have elevated potassium which she is secondary to hemolysis patient is on Aldactone which is being held and losartan is being held as well along with hydrochlorothiazide her blood pressure is on the low normal side. Repeat basic metabolic profile tomorrow patient was started on IV fluids patient had a normal ejection fraction the past although had a pleural effusion post CABG and removal of the fluid from the right to lung. Patient masslike lesion is in the right middle lobe. Patient will be continued on sliding scale insulin and metformin will be held as an Review of Systems REVIEW OF SYSTEMS: CONSTITUTIONAL: No fever HEENT: No recent visual problems or hearing problems. Denied any sore throat. CARDIOVASCULAR: No chest pain, orthopnea, PND, no palpitations, no syncope. PULMONARY: No shortness of breath, no cough, no hemoptysis. GASTROINTESTINAL: No diarrhea, no nausea, no vomiting, no abdominal pain. Normoactive bowel sounds. NEUROLOGICAL: No headaches, no weakness, no numbness. HEMATOLOGICAL: Denies any bleeding or petechiae. GENITOURINARY: As mentioned in HPI MUSCULOSKELETAL/RHEUMATOLOGICAL: Denies any joint pain, swelling, or any muscle pain. ENDOCRINE: Denies any polyuria or polydipsia. The rest of the 14-point review of systems is negative. 02/07/2018 maintained on Zithromax, Rocephin. Remains short of breath. Chest x -ray reported multiple lung masses throughout. Chest CT performed, reporting multiple lung masses bilaterally, largest in the right upper lobe measuring 4.5 cm, left pleural effusion, enlarged liver, suspect underlying masses, possible retroperitoneal adenopathy; compatible with metastatic disease. Sodium 132, creatinine 1.15. Afebrile. 02/08/18 liver ultrasound reported enlarged liver with heterogeneity suspicious for diffuse metastatic disease, moderate right-sided hydronephrosis. Interventional radiology recommending liver biopsy, after holding aspirin, Plavix for a week. GI consulted. Less short of breath today, maintaining O2 sats in the mid 90s on room air. Afebrile, preliminary Cultures negative. 02/09/2018 Patient is seen and examined this morning along with Dr. Oreilly. She was sitting up in chair. Her urinary symptoms are improved. White count continued to be elevated. Patient is on IV antibiotic. 02/11/2018 aspirin and Plavix remain on hold for liver biopsy today. Maintained on empiric antibiotics. remains short of breath. Afebrile. Objective - Vital Signs Vital signs: Vital Signs Temp 97.9 F 02/11/18 13:12 Pulse 89 02/11/18 13:12 Resp 18 02/11/18 13:12 BP 120/60 02/11/18 13:12 Pulse Ox 96 02/11/18 13:12 Intake & Output 02/10/18 02/11/18 02/11/18 18:59 06:59 18:59 Intake Total 120 Balance 120 Intake: Oral 120 Other: Voiding Method Toilet Toilet Toilet # Voids 1 2 2 - Exam GENERAL: The patient is alert and oriented x3, not in any acute distress. Lethargic. HEENT: Pupils are round and equally reacting to light. EOMI. No scleral icterus. No conjunctival pallor. Normocephalic, atraumatic. CARDIOVASCULAR: S1 and S2 present. No murmurs, rubs, or gallops. PULMONARY: Right Bibasilar crackles , no rhonchi, no wheezing ABDOMEN: Soft, minimal tenderness, distended, normoactive bowel sounds. Hepatomegaly. MUSCULOSKELETAL: No joint swelling or deformity. EXTREMITIES: No cyanosis, clubbing, or mild lower extremity edema. NEUROLOGICAL: Gross neurological examination did not reveal any focal deficits. - Labs CBC & Chem 7: 02/11/18 09:02 02/11/18 09:02 Labs: Abnormal Lab Results - Last 24 Hours (Table) 02/11/18 02/11/18 02/11/18 Range/Units 06:55 09:02 09:02 WBC 16.7 H (3.8-10.6) k/uL Hgb 10.0 L (11.4-16.0) gm/dL Hct 33.2 L (34.0-46.0) % MCHC 30.0 L (31.0-37.0) g/dL RDW 18.5 H (11.5-15.5) % Plt Count 529 H (150-450) k/uL Neutrophils # 14.2 H (1.3-7.7) k/uL Sodium 133 L (137-145) mmol/L Chloride 109 H (98-107) mmol/L Carbon Dioxide 19 L (22-30) mmol/L BUN 27 H (7-17) mg/dL Glucose 70 L (74-99) mg/dL POC Glucose (mg/dL) 71 L (75-99) mg/dL Calcium 10.9 H (8.4-10.2) mg/dL AST 76 H (14-36) U/L Alkaline Phosphatase 200 H (38-126) U/L Total Protein 4.5 L (6.3-8.2) g/dL Albumin 2.1 L (3.5-5.0) g/dL Microbiology - Last 24 Hours (Table) 02/09/18 15:00 Urine Culture - Final Urine,Voided 02/05/18 14:15 Anaerobic Culture - Final Ascites Fluid 02/05/18 14:15 Gram Stain - Final Ascites Fluid Body Fluid Culture - Final 02/05/18 18:41 Blood Culture - Preliminary Blood No Growth after 120 hours Assessment and Plan Assessment: -Possible acute urinary tract infection -Leukocytosis -multiple lung masses bilaterally, largest in the right upper lobe measuring 4.5 cm, left pleural effusion, enlarged liver, suspect underlying masses, possible retroperitoneal adenopathy; compatible with metastatic disease per CT. possible new primary malignancy. -History of bilateral breast cancer; left breast cancer 1989, right-sided breast cancer 2007 -Hyperkalemia holding off on losartan and and Aldactone. -Hyperlipidemia -Carotid artery disease with recent CABG/MVR repair -Acute renal failure secondary to hypotension and anti-hypertensives -Hyperlipidemia -Mildly elevated troponin secondary to renal dysfunction patient doesn't have any chest pain. Plan: Continue on current medication regime ,monitoring and symptomatic treatment. Aspirin, Plavix remains on hold, awaiting biopsy. Continue with empiric antibiotics. Prognosis guarded given multiple complex medical issues. Discharge planning in progress for tomorrow to subacute rehab. The impression and plan of care has been dictated as directed. : I performed a history and examination of this patient, discussed the same with the dictator. I agree with the dictator's note ,documented as a scribe. Any additional findings or plans will be noted.
--- NOTE | 2018-02-11 18:58 | P.PN ---
Subjective Progress Note Date: 02/11/18 Principal diagnosis: lung mass, suspicious metastatic disease Pt seen in f/u, she is laying in bed, denies GERMAIN or pain. Objective - Vital Signs Vital signs: Vital Signs Temp 98.7 F 02/11/18 05:00 Pulse 82 02/11/18 08:45 Resp 16 02/11/18 08:45 BP 136/63 02/11/18 05:00 Pulse Ox 95 02/11/18 05:00 Intake & Output 02/10/18 02/11/18 02/11/18 18:59 06:59 18:59 Other: Voiding Method Toilet Toilet Toilet # Voids 1 2 - Constitutional General appearance: Present: cooperative, no acute distress, thin - Respiratory Respiratory: bilateral: CTA - Cardiovascular Heart sounds: normal: S1, S2 - Gastrointestinal General gastrointestinal: Present: hepatomegaly (3 FB below constal margin, into epigastric area and LUQ) - Neurologic Neurologic: Present: CNII-XII intact - Musculoskeletal Musculoskeletal: Present: strength equal bilaterally - Psychiatric Psychiatric: Present: A&O x's 3, appropriate affect, intact judgment & insight - Labs CBC & Chem 7: 02/11/18 09:02 02/11/18 09:02 Labs: Abnormal Lab Results - Last 24 Hours (Table) 02/10/18 02/10/18 02/11/18 Range/Units 16:50 17:29 06:55 POC Glucose (mg/dL) 166 H 148 H 71 L (75-99) mg/dL Microbiology - Last 24 Hours (Table) 02/05/18 18:41 Blood Culture - Preliminary Blood No Growth after 120 hours - Imaging and Cardiology US - abdomen: report reviewed Assessment and Plan (1) Liver nodule Current Visit: Yes Status: Acute Priority: High Code(s): K76.89 - OTHER SPECIFIED DISEASES OF LIVER SNOMED Code(s): 745442185 (2) Lung mass Current Visit: Yes Status: Acute Priority: High Code(s): R91.8 - OTHER NONSPECIFIC ABNORMAL FINDING OF LUNG FIELD SNOMED Code(s): 042943522 (3) Chronic anemia Narrative/Plan: Iron deficiency is noted. Will consider iron supplementation after biopsies are completed. Current Visit: Yes Status: Chronic Priority: Medium Code(s): D64.9 - ANEMIA, UNSPECIFIED SNOMED Code(s): 556319991 Plan: Dr. Jj reviewed concerning CT results with pt. Biopsy is being pursued. If lung was biopsied and this is a primary lung cancer, patient may require liver biopsy as she does have a history of left breast cancer and right breast cancer. The liver is biopsied and it shows metastatic lung cancer no further biopsies would be needed. If the liver were to show metastatic breast cancer in the lung would need to be biopsied. Did speak with IR RN regarding the above situation, she will speak with the Interventional Radiologist is going to perform the procedure. Pt asa and plavix held since the fifth. Doctor attests: I performed a history and physical examination of this patient with dictator. I agree with dictators note, documented as a scribe.
[2018-02-11] MEDS: PRAVASTATIN SODIUM 20 MG TAB PO SCH (20:17)
[2018-02-11 20:20] LABS: Glucose,Whole Blood 100 mg/dL (75-99)
[2018-02-12] MEDS: SODIUM CHLORIDE 0.9% 1,000 ML IV SCH ×3 (07:07→19:18)
[2018-02-12 07:19] LABS: Glucose,Whole Blood 76 mg/dL (75-99)
[2018-02-12] MEDS: INSULIN ASPART 100 UNIT/ML 1 ML 10 ML VIAL SQ SCH ×4 (07:21→20:20)
[2018-02-12] MEDS: CARVEDILOL 3.125 MG TAB PO SCH (09:21)
[2018-02-12] MEDS: CHOLECALCIFEROL 1,000 UNIT TAB PO SCH (09:22)
[2018-02-12] MEDS: FERROUS SULFATE 325 MG TAB PO SCH (09:22)
[2018-02-12 09:45] LABS: Anisocytosis Slight; Basophils % (A) 0 %; Eosinophils # (A) 0.1 k/uL (0-0.7); Eosinophils % (A) 0 %; HCT 35.9 % (34.0-46.0); HGB 10.6 gm/dL (11.4-16.0); Hypochromasia Marked; Lymphocytes # (A) 1.6 k/uL (1.0-4.8); Lymphocytes % (A) 9 %; MCH 25.2 pg (25.0-35.0); MCHC 29.4 g/dL (31.0-37.0); MCV 85.9 fL (80.0-100.0); Mean Platelet Volume 7.7; Monocytes # (A) 1.2 k/uL (0-1.0); Monocytes % (A) 7 %; Neutrophils # (A) 15.2 k/uL (1.3-7.7); Neutrophils % (A) 84 %; Platelet Count 537 k/uL (150-450); RBC 4.18 m/uL (3.80-5.40); RDW 18.7 % (11.5-15.5); WBC 18.2 k/uL (3.8-10.6)
[2018-02-12 09:54] LABS: Albumin 2.2 g/dL (3.5-5.0); Calcium 10.3 mg/dL (8.4-10.2); Potassium 5.1 mmol/L (3.5-5.1); Total Bilirubin 0.8 mg/dL (0.2-1.3); Total Protein 4.7 g/dL (6.3-8.2)
[2018-02-12 10:21] LABS: Poikilocytosis (M) Present
--- NOTE | 2018-02-12 10:47 | P.PN ---
Subjective Progress Note Date: 02/12/18 Principal diagnosis: Nodular densities, right upper lobe mass, rule out malignancy This is a 77-year-old white female patient of Dr. Alia giordano, who presented to the emergency department on 02/05/2018 at 1500 for evaluation of increasing generalized weakness, lightheadedness, dizziness. Patient had a three-vessel coronary artery bypass grafting, with DESOUZA to the LAD, reverse SVG to the RCA, and OM, and mitral valve repair and left atrial appendage exclusion on [address] Alvarez. Other medical history includes hypertension, hyperlipidemia, left breast cancer in 1989 with mastectomy with lymph node dissection followed by chemoradiation, and right breast cancer in 2007 with radiation, carotid artery disease status post left carotid endarterectomy, history of CVA, diabetes mellitus, nicotine dependence which is in remission. In the postoperative period patient had developed atrial fibrillation, currently in sinus rhythm. Patient also developed postoperative blood loss anemia, with the hemoglobin as low as 6.2 at the lowest, requiring blood transfusions. Her iron levels were found to be low, and patient did receive 2 iron transfusions. This admission her hemoglobin is 10.8. White count was 15.1 , platelet count is 687, sodium is 132, potassium is 5.5, anion gap was mildly elevated at 13.2, BUN was 39, creatinine was 1.4, alkaline phosphatase was 175, ALT was 50, AST was 85, proBNP was elevated at 9040, troponins were 0.142, 0.122 , and 0.134. Urinalysis showed small amount of blood, large leukocyte esterase , and WBCs. Patient denies any urinary symptoms.Denies any fever or chills. Denies any significant chest congestion, wheezing. No nausea or vomiting. No diarrhea. She has mild pretibial edema. Denied any chest pain, denied any hemoptysis or chest wall discomfort. Chest x-ray was taken and showed a mass present in the superior segment of right lower lobe or possibly right upper lobe showing approximately 4.7 cm and could be pleural based. No pneumothorax, there was smaller nodules present within the right lung, this was compared to the previous chest x-ray and were not seen there. There is a slight blunting of the left costophrenic angle. Today patient is seen in urination on selective care unit, she is resting comfortably in bed, in no significant distress, afebrile, room air pulse ox is 99%, hemodynamic was stable. Patient did have right thoracentesis on 07/31/2017 with drainage of 800 mL of pleural fluid, and the cultures were negative. No cytology was done. On 02/07/2018 patient seen in follow-up on selective care unit. Breathing has not much improved, yesterday we gave patient a dose of Lasix, net fluid balance is difficult to estimate as there was no accurate I and O's recorded. Patient' s weight has actually increased according to the recorded weights. No fever or chills, patient has been started on Zithromax and Rocephin, and today's chest x- ray showed multiple lung masses bilaterally, with the largest in the right upper lobe, and areas of nodular lesions. Right pleural effusion has resolved. CT of the chest without contrast was obtained, and showed multiple lung masses bilaterally, with the largest right upper lobe measuring 4.5 cm and adjacent to the pleura in the superior segment of the right lower lobe. There is approximately 20-30 lesions, areas of scarring, there were no definitive greater than 1 cm hilar or mediastinal lymph nodes, however the CAT scan was done without contrast. On 02/08/2018 patient seen in follow-up on selective care unit. Interventional radiology was consulted for fine-needle aspiration biopsy of the right lung mass , and it was recommended to obtain ultrasound of the liver as her weren't suspicious masses seen on the CT chest. Ultrasound of the liver showed enlargement with heterogeneity which was suspicious for diffuse metastatic disease, moderate right-sided hydronephrosis. IR requested aspirin and Plavix on hold at least for 7 days, heparin will be held as well. Worsening difficulty breathing, patient is likely comfortable, currently on room air with a pulse ox of 95%, she is afebrile, hemodynamically stable. She is having lower lumbar area back discomfort, but no acute distress. Lung sounds are clear to auscultation. She remains in sinus rhythm. He is afebrile. Cultures are negative. No new labs today. He has service has been consulted in regards to the ultrasound results. The patient is seen again today 02/09/2018 in follow-up on the selective care unit. She is currently sitting up in a chair at the bedside. She is awake and alert in no acute distress. She denies any worsening shortness of breath, cough or congestion. Maintaining good O2 saturations in the 90s on room air. Ascites fluid reveals no growth. Blood cultures reveal no growth. Count 14.8. Hemoglobin 9.8. Creatinine 0.97. She remains on ceftriaxone. The plan is for interventional radiology to perform FNA of the liver for diagnosis. The patient is seen again today 02/12/2018 in follow-up on the regular medical floor. She is currently resting quite comfortably in bed. No worsening shortness of breath, cough or congestion. He continues to maintain good O2 saturations in the mid 90s on room air. She's afebrile. Hemodynamically stable. Urine, blood and ascites fluid cultures all reveal no growth. White count 18.2. Hemoglobin 10.6. Sodium 135, chloride 111, bicarb 16, creatinine 0.87. Alk phos 200, AST 94, ALT 53. She remains on ceftriaxone. Objective - Vital Signs Vital signs: Vital Signs Temp 98 F 02/12/18 05:00 Pulse 103 H 02/12/18 05:00 Resp 16 02/12/18 05:00 BP 135/63 02/12/18 05:00 Pulse Ox 95 02/12/18 05:00 Intake & Output 02/11/18 02/12/18 02/12/18 18:59 06:59 18:59 Intake Total 120 980 Output Total 800 Balance -680 980 Weight 52.5 kg Intake: Intake, IV Titration 400 Amount Sodium Chloride 0.9% 1, 400 000 ml @ 100 mls/hr IV . Q10H [facility] Rx#:[id number] Oral 120 580 Output: Urine 800 Other: Voiding Method Toilet Toilet # Voids 2 3 1 - Exam GENERAL EXAM: Alert, pleasant, thin 77-year-old frail looking older female, comfortable in no apparent distress. HEAD: Normocephalic/atraumatic. EYES: Normal reaction of pupils, equal size. Conjunctiva pink, sclera white. NOSE: Clear with pink turbinates. THROAT: No erythema or exudates. NECK: No masses, no JVD, no thyroid enlargement, no adenopathy. CHEST: No chest wall deformity. Symmetrical expansion. LUNGS: Equal air entry with no crackles, wheeze, rhonchi or dullness. CVS: Regular rate and rhythm, normal S1 and S2, no gallops, no murmurs, no rubs ABDOMEN: Soft, nontender. No hepatosplenomegaly, normal bowel sounds, no guarding or rigidity. EXTREMITIES: No clubbing, mild pretibial edema no cyanosis, 2+ pulses and upper and lower extremities. MUSCULOSKELETAL: Muscle strength and tone normal. SPINE: No scoliosis or deformity SKIN: No rashes CENTRAL NERVOUS SYSTEM: Alert and oriented -3. No focal deficits, tone is normal in all 4 extremities. PSYCHIATRIC: Alert and oriented -3. Appropriate affect. Intact judgment and insight. - Labs CBC & Chem 7: 02/12/18 08:21 02/12/18 08:21 Labs: Abnormal Lab Results - Last 24 Hours (Table) 02/11/18 02/11/18 02/11/18 Range/Units 09:02 09:02 17:32 WBC 16.7 H (3.8-10.6) k/uL Hgb 10.0 L (11.4-16.0) gm/dL Hct 33.2 L (34.0-46.0) % MCHC 30.0 L (31.0-37.0) g/dL RDW 18.5 H (11.5-15.5) % Plt Count 529 H (150-450) k/uL Neutrophils # 14.2 H (1.3-7.7) k/uL Monocytes # (0-1.0) k/uL Sodium 133 L (137-145) mmol/L Chloride 109 H (98-107) mmol/L Carbon Dioxide 19 L (22-30) mmol/L BUN 27 H (7-17) mg/dL Glucose 70 L (74-99) mg/dL POC Glucose (mg/dL) 122 H (75-99) mg/dL Calcium 10.9 H (8.4-10.2) mg/dL AST 76 H (14-36) U/L ALT (9-52) U/L Alkaline Phosphatase 200 H (38-126) U/L Total Protein 4.5 L (6.3-8.2) g/dL Albumin 2.1 L (3.5-5.0) g/dL 02/11/18 02/12/18 02/12/18 Range/Units 20:16 08:21 08:21 WBC 18.2 H (3.8-10.6) k/uL Hgb 10.6 L (11.4-16.0) gm/dL Hct (34.0-46.0) % MCHC 29.4 L (31.0-37.0) g/dL RDW 18.7 H (11.5-15.5) % Plt Count 537 H (150-450) k/uL Neutrophils # 15.2 H (1.3-7.7) k/uL Monocytes # 1.2 H (0-1.0) k/uL Sodium 135 L (137-145) mmol/L Chloride 111 H (98-107) mmol/L Carbon Dioxide 16 L (22-30) mmol/L BUN 26 H (7-17) mg/dL Glucose (74-99) mg/dL POC Glucose (mg/dL) 100 H (75-99) mg/dL Calcium 10.3 H (8.4-10.2) mg/dL AST 94 H (14-36) U/L ALT 53 H (9-52) U/L Alkaline Phosphatase 200 H (38-126) U/L Total Protein 4.7 L (6.3-8.2) g/dL Albumin 2.2 L (3.5-5.0) g/dL Microbiology - Last 24 Hours (Table) 02/05/18 18:41 Blood Culture - Final Blood No Growth after 144 hours 02/09/18 15:00 Urine Culture - Final Urine,Voided 02/05/18 14:15 Anaerobic Culture - Final Ascites Fluid 02/05/18 14:15 Gram Stain - Final Ascites Fluid Body Fluid Culture - Final Assessment and Plan Assessment: Assessment: #1. Right upper lobe mass, multiple nodular area bilaterally, possibly related to metastatic or new primary malignancy. Pt presented with weakness, dizziness, weight loss. Chest x-ray revealed a new right upper lobe mass, and new nodularity within the right lung not previously seen on the chest x-rays from September 2017. CT chest showed multiple areas of lung masses bilaterally, with the largest in the right upper lobe, adjacent to the pleura in the superior segment of the right lower lobe, there were approximately 20-30 lesions. Patient will be set up for fine-needle aspiration biopsy with interventional radiology of the liver. #2. Multiple liver masses suspicious for diffuse metastatic disease #3. Leukocytosis #4. Urinary tract infection versus asymptomatic bacteriuria #5. Elevated troponins #6. Elevated proBNP of 9040, suggesting possibility of acute congestive heart failure, systolic in nature. Mildly impaired left ventricular systolic function with ejection fraction 40-45%. #7. Acute kidney injury #8. Mild hyponatremia #9. Coronary artery disease, severe mitral valve regurgitation, status post three-vessel coronary artery bypass grafting, with DESOUZA to LAD, reverse SVG to the RCA and OM, and mitral valve repair with exclusion of left atrial appendage , on 07/24/2017. Patient had postoperative A. fib, blood loss anemia requiring blood transfusions, small biapical pneumothoraces, and right sided pleural effusion requiring right-sided thoracentesis with drainage of 800 mL of pleural fluid, and the pleural fluid cultures were negative, no cytology was done. #10. History of left breast cancer in 1989 with ostectomy and lymph node resection, followed by chemoradiation, and chronic left arm lymphedema, history of right-sided breast cancer in 2007 that is post radiation. #11. Diabetes mellitus type 2 #12. Hypertension, hyperlipidemia #13. History of CVA #14. Carotid artery stenosis, status post left carotid endarterectomy Plan: The patient this was seen and evaluated by Dr. Samuel. She is currently stable from the pulmonary standpoint. Awaiting FNA of the liver mass scheduled for tomorrow. We will continue to follow make further recommendations based on her clinical status. I, the cosigning physician, performed a history & physical examination of the patient. Lungs sounds are clear. Maintaining good O2 saturations in the 90s on room air. I discussed the assessment and plan of care with my nurse practitioner, Bertha Dinero. I attest to the above note as dictated by her.
--- NOTE | 2018-02-12 11:02 | US ---
EXAMINATION TYPE: US abdomen limited DATE OF EXAM: 02/12/2018 COMPARISON: NONE CLINICAL HISTORY: Ascites. distended abd All four quadrants of abdomen were scanned and only a trace amount of free fluid seen. Limited abdomen ultrasound. IMPRESSION: Minimal ascites.
[2018-02-12 11:23] VITALS: BMI 21.2
[2018-02-12 11:25] LABS: Glucose,Whole Blood 157 mg/dL (75-99)
--- NOTE | 2018-02-12 12:17 | P.PN ---
Subjective Progress Note Date: 02/12/18 Principal diagnosis: Liver masses 77-year-old female multiple liver masses noted on ultrasound abdomen suspicious for metastatic liver disease. She has a history of breast carcinoma with recurrence in 2007. Liver biopsy tentatively schedule possibly tomorrow secondary receiving aspirin Plavix 5 days ago. Presently resting comfortably. Ultrasound of the abdomen reported minimal ascites. Afebrile. WBC 18.2. Hemoglobin 10.6. Total bilirubin 0.8. AST 94. ALT 53. AP 200. Objective - Vital Signs Vital signs: Vital Signs Temp 98 F 02/12/18 05:00 Pulse 103 H 02/12/18 05:00 Resp 16 02/12/18 05:00 BP 135/63 02/12/18 05:00 Pulse Ox 95 02/12/18 05:00 Intake & Output 02/11/18 02/12/18 02/12/18 18:59 06:59 18:59 Intake Total 120 980 240 Output Total 800 Balance -680 980 240 Weight 52.5 kg 52.5 kg Intake: Intake, IV Titration 400 Amount Sodium Chloride 0.9% 1, 400 000 ml @ 100 mls/hr IV . Q10H [facility] Rx#:[id number] Oral 120 580 240 Output: Urine 800 Other: Voiding Method Toilet Toilet # Voids 2 3 1 - Exam General appearance: The patient is alert, oriented, in no acute distress. HET: Head is normocephalic and atraumatic. Pupils are equal and reactive. Oropharynx is clear without lesions. Neck: Supple without lymphadenopathy. Trachea midline. Heart: S1 S2. Regular rate and rhythm. Lungs: No crackles or wheezes are heard. Abdomen: Soft, nontender, mildly bloated with bowel sounds. No peritoneal signs. No palpable organomegaly or masses. Extremities: Normal skin color and turgor. No cyanosis, rash, ulceration, clubbing, or edema. Radial and pedal pulses are 2/4 bilaterally. Neurological: No focal deficits. Strength and sensation are grossly intact. - Labs CBC & Chem 7: 02/12/18 08:21 02/12/18 08:21 Labs: Abnormal Lab Results - Last 24 Hours (Table) 02/11/18 02/11/18 02/12/18 Range/Units 17:32 20:16 08:21 WBC (3.8-10.6) k/uL Hgb (11.4-16.0) gm/dL MCHC (31.0-37.0) g/dL RDW (11.5-15.5) % Plt Count (150-450) k/uL Neutrophils # (1.3-7.7) k/uL Monocytes # (0-1.0) k/uL Sodium 135 L (137-145) mmol/L Chloride 111 H (98-107) mmol/L Carbon Dioxide 16 L (22-30) mmol/L BUN 26 H (7-17) mg/dL POC Glucose (mg/dL) 122 H 100 H (75-99) mg/dL Calcium 10.3 H (8.4-10.2) mg/dL AST 94 H (14-36) U/L ALT 53 H (9-52) U/L Alkaline Phosphatase 200 H (38-126) U/L Total Protein 4.7 L (6.3-8.2) g/dL Albumin 2.2 L (3.5-5.0) g/dL 02/12/18 02/12/18 Range/Units 08:21 11:24 WBC 18.2 H (3.8-10.6) k/uL Hgb 10.6 L (11.4-16.0) gm/dL MCHC 29.4 L (31.0-37.0) g/dL RDW 18.7 H (11.5-15.5) % Plt Count 537 H (150-450) k/uL Neutrophils # 15.2 H (1.3-7.7) k/uL Monocytes # 1.2 H (0-1.0) k/uL Sodium (137-145) mmol/L Chloride (98-107) mmol/L Carbon Dioxide (22-30) mmol/L BUN (7-17) mg/dL POC Glucose (mg/dL) 157 H (75-99) mg/dL Calcium (8.4-10.2) mg/dL AST (14-36) U/L ALT (9-52) U/L Alkaline Phosphatase (38-126) U/L Total Protein (6.3-8.2) g/dL Albumin (3.5-5.0) g/dL Microbiology - Last 24 Hours (Table) 02/05/18 18:41 Blood Culture - Final Blood No Growth after 144 hours 02/09/18 15:00 Urine Culture - Final Urine,Voided 02/05/18 14:15 Anaerobic Culture - Final Ascites Fluid 02/05/18 14:15 Gram Stain - Final Ascites Fluid Body Fluid Culture - Final Assessment and Plan Assessment: Impression 1. Multiple lesions in the lung and in the liver suspicious for metastatic disease. Tentative liver biopsy tomorrow. 2. Mild elevation of serum transaminases most likely infiltrative pattern from possible metastasis. Recommendations: 1. Plan of care was discussed with interventional radiology department this afternoon. Tentative plans to proceed with liver biopsy tomorrow. We'll obtain PT/INR in a.m. Continue supportive measures. We'll continue to follow with you. Assessment and plan a care discussed with Dr. Up
--- NOTE | 2018-02-12 13:47 | P.PN ---
Subjective Progress Note Date: 02/12/18 Principal diagnosis: lung mass, suspicious metastatic disease Patient seen today in follow-up, her is at the bedside today. Patient feels weak, appetite is poor, denies fevers, sweats, nausea, vomiting, chest pain, difficulty in breathing at rest, she gets short of breath with activity, no acute changes in bowel or bladder habits, she has some mild abdominal distention, denies overt pain, no swelling of the legs. Objective - Vital Signs Vital signs: Vital Signs Temp 98 F 02/12/18 05:00 Pulse 103 H 02/12/18 05:00 Resp 16 02/12/18 05:00 BP 135/63 02/12/18 05:00 Pulse Ox 95 02/12/18 05:00 Intake & Output 02/11/18 02/12/18 02/12/18 18:59 06:59 18:59 Intake Total 120 980 240 Output Total 800 Balance -680 980 240 Weight 52.5 kg 52.5 kg Intake: Intake, IV Titration 400 Amount Sodium Chloride 0.9% 1, 400 000 ml @ 100 mls/hr IV . Q10H [facility] Rx#:[id number] Oral 120 580 240 Output: Urine 800 Other: Voiding Method Toilet Toilet # Voids 2 3 1 - Constitutional General appearance: Present: cooperative, no acute distress, thin - EENT Eyes: Present: anicteric sclerae - Respiratory Respiratory: bilateral: CTA, diminished (bases) - Cardiovascular Heart sounds: normal: S1, S2 - Gastrointestinal General gastrointestinal: Present: distended (mild), normal bowel sounds, soft - Neurologic Neurologic: Present: CNII-XII intact - Musculoskeletal Musculoskeletal: Present: generalized weakness - Psychiatric Psychiatric: Present: A&O x's 3, appropriate affect, intact judgment & insight - Labs CBC & Chem 7: 02/12/18 08:21 02/12/18 08:21 Labs: Abnormal Lab Results - Last 24 Hours (Table) 02/11/18 02/11/18 02/12/18 Range/Units 17:32 20:16 08:21 WBC (3.8-10.6) k/uL Hgb (11.4-16.0) gm/dL MCHC (31.0-37.0) g/dL RDW (11.5-15.5) % Plt Count (150-450) k/uL Neutrophils # (1.3-7.7) k/uL Monocytes # (0-1.0) k/uL Sodium 135 L (137-145) mmol/L Chloride 111 H (98-107) mmol/L Carbon Dioxide 16 L (22-30) mmol/L BUN 26 H (7-17) mg/dL POC Glucose (mg/dL) 122 H 100 H (75-99) mg/dL Calcium 10.3 H (8.4-10.2) mg/dL AST 94 H (14-36) U/L ALT 53 H (9-52) U/L Alkaline Phosphatase 200 H (38-126) U/L Total Protein 4.7 L (6.3-8.2) g/dL Albumin 2.2 L (3.5-5.0) g/dL 02/12/18 02/12/18 Range/Units 08:21 11:24 WBC 18.2 H (3.8-10.6) k/uL Hgb 10.6 L (11.4-16.0) gm/dL MCHC 29.4 L (31.0-37.0) g/dL RDW 18.7 H (11.5-15.5) % Plt Count 537 H (150-450) k/uL Neutrophils # 15.2 H (1.3-7.7) k/uL Monocytes # 1.2 H (0-1.0) k/uL Sodium (137-145) mmol/L Chloride (98-107) mmol/L Carbon Dioxide (22-30) mmol/L BUN (7-17) mg/dL POC Glucose (mg/dL) 157 H (75-99) mg/dL Calcium (8.4-10.2) mg/dL AST (14-36) U/L ALT (9-52) U/L Alkaline Phosphatase (38-126) U/L Total Protein (6.3-8.2) g/dL Albumin (3.5-5.0) g/dL Microbiology - Last 24 Hours (Table) 02/05/18 18:41 Blood Culture - Final Blood No Growth after 144 hours 02/09/18 15:00 Urine Culture - Final Urine,Voided 02/05/18 14:15 Anaerobic Culture - Final Ascites Fluid 02/05/18 14:15 Gram Stain - Final Ascites Fluid Body Fluid Culture - Final - Imaging and Cardiology US - abdomen: report reviewed Assessment and Plan (1) Liver nodule Current Visit: Yes Status: Acute Priority: High Code(s): K76.89 - OTHER SPECIFIED DISEASES OF LIVER SNOMED Code(s): 211833401 (2) Lung mass Current Visit: Yes Status: Acute Priority: High Code(s): R91.8 - OTHER NONSPECIFIC ABNORMAL FINDING OF LUNG FIELD SNOMED Code(s): 285333710 (3) Chronic anemia Narrative/Plan: Iron deficiency on workup, will order parenteral iron after biopsy. Current Visit: Yes Status: Chronic Priority: Medium Code(s): D64.9 - ANEMIA, UNSPECIFIED SNOMED Code(s): 008370138 (4) Hypercalcemia Narrative/Plan: High suspicion related to malignancy. Patient did receive bisphosphonate therapy on February 04, calcium levels now near normal Current Visit: Yes Status: Acute Priority: High Code(s): E83.52 - HYPERCALCEMIA SNOMED Code(s): 36489995 Plan: Extensive discussion with patient and her about the plan of care. Discussed the case with GI nurse practitioner. We reviewed the complicated situation patient is in (biopsy the liver, if metastatic breast then, biopsy of the lung would be necessary. Liver shows metastatic lung no further biopsy needed. Lung biopsy shows lung cancer then liver would need to be biopsied to confirm that that is not metastatic breast). Plan is for liver biopsy tomorrow. Patient has been off for antiplatelet therapy since February. Reviewed with patient and that they could anticipate 3-5 days turnaround for pathology results. They verbalized understanding the plan.
--- NOTE | 2018-02-12 16:42 | P.PN ---
Subjective Progress Note Date: 02/12/18 Progress note being dictated for Dr. Oreilly. Interval history:77-year-old wasn't female came in with complaints of generalized tiredness when questioned patient did complain of dysuria that he does have significantly abnormal urine subsequently admitted with Rocephin. Patient is very thin built had a recent coronary artery bypass graft surgery along with a valve replacement surgery. Patient has multiple other issues going on at this time. Patient chest x-ray was obtained which showed a small masslike consolidation because of which pulmonology was consulted I did review the images with Dr. Barron pharmacy buyer in the this mass was not present in previous x-rays because of which pulmonology believes may be pneumonia, recommending an of the chest x-ray tomorrow if it's still shows this masslike consolidation will obtain a CAT scan of the chest that at this time her creatinine is borderline. Patient is comparing of cough yellowish sputum production. Because of which pulmonology is recommending to add azithromycin. Patient does have elevated potassium which she is secondary to hemolysis patient is on Aldactone which is being held and losartan is being held as well along with hydrochlorothiazide her blood pressure is on the low normal side. Repeat basic metabolic profile tomorrow patient was started on IV fluids patient had a normal ejection fraction the past although had a pleural effusion post CABG and removal of the fluid from the right to lung. Patient masslike lesion is in the right middle lobe. Patient will be continued on sliding scale insulin and metformin will be held as an Review of Systems REVIEW OF SYSTEMS: CONSTITUTIONAL: No fever HEENT: No recent visual problems or hearing problems. Denied any sore throat. CARDIOVASCULAR: No chest pain, orthopnea, PND, no palpitations, no syncope. PULMONARY: No shortness of breath, no cough, no hemoptysis. GASTROINTESTINAL: No diarrhea, no nausea, no vomiting, no abdominal pain. Normoactive bowel sounds. NEUROLOGICAL: No headaches, no weakness, no numbness. HEMATOLOGICAL: Denies any bleeding or petechiae. GENITOURINARY: As mentioned in HPI MUSCULOSKELETAL/RHEUMATOLOGICAL: Denies any joint pain, swelling, or any muscle pain. ENDOCRINE: Denies any polyuria or polydipsia. The rest of the 14-point review of systems is negative. 02/07/2018 maintained on Zithromax, Rocephin. Remains short of breath. Chest x -ray reported multiple lung masses throughout. Chest CT performed, reporting multiple lung masses bilaterally, largest in the right upper lobe measuring 4.5 cm, left pleural effusion, enlarged liver, suspect underlying masses, possible retroperitoneal adenopathy; compatible with metastatic disease. Sodium 132, creatinine 1.15. Afebrile. 02/08/18 liver ultrasound reported enlarged liver with heterogeneity suspicious for diffuse metastatic disease, moderate right-sided hydronephrosis. Interventional radiology recommending liver biopsy, after holding aspirin, Plavix for a week. GI consulted. Less short of breath today, maintaining O2 sats in the mid 90s on room air. Afebrile, preliminary Cultures negative. 02/09/2018 Patient is seen and examined this morning along with Dr. Oreilly. She was sitting up in chair. Her urinary symptoms are improved. White count continued to be elevated. Patient is on IV antibiotic. 02/11/2018 aspirin and Plavix remain on hold for liver biopsy today. Maintained on empiric antibiotics. remains short of breath. Afebrile. 02/12/2018 liver biopsy scheduled for tomorrow, Plavix and aspirin remain on hold. Abdominal ultrasound reporting minimal ascites. Elevated LFTs, total bili 0.8. Complains of generalized fatigue, exhaustion. Afebrile, WBC 18.2. Objective - Vital Signs Vital signs: Vital Signs Temp 98.4 F 02/12/18 12:07 Pulse 92 02/12/18 12:07 Resp 18 02/12/18 12:07 BP 120/58 02/12/18 12:07 Pulse Ox 97 02/12/18 12:07 Intake & Output 02/11/18 02/12/18 02/12/18 18:59 06:59 18:59 Intake Total 243 076 9356 Output Total 800 Balance -076 182 4815 Weight 52.5 kg 52.5 kg Intake: Intake, IV Titration 400 850 Amount Sodium Chloride 0.9% 1, 400 800 000 ml @ 100 mls/hr IV . Q10H [facility] Rx#:[id number] cefTRIAXone 1,000 mg In 50 Sodium Chloride 0.9% 50 ml @ 100 mls/hr IVPB Q24HR [facility] Rx#:[id number] Oral 760 113 4435 Output: Urine 800 Other: Voiding Method Toilet Toilet Toilet # Voids 2 3 4 - Exam GENERAL: The patient is alert and oriented x3, no acute distress. Lethargic, tired appearing HEENT: Pupils are round and equally reacting to light. EOMI. No conjunctival pallor. Normocephalic, atraumatic. CARDIOVASCULAR: S1 and S2 present. No murmurs, rubs, or gallops. PULMONARY: Right Bibasilar crackles , no rhonchi, no wheezing ABDOMEN: Soft, minimal tenderness, distended, normoactive bowel sounds. Hepatomegaly. MUSCULOSKELETAL: No joint swelling or deformity. EXTREMITIES: No cyanosis, clubbing, or mild lower extremity edema. NEUROLOGICAL: Gross neurological examination did not reveal any focal deficits. - Labs CBC & Chem 7: 02/12/18 08:21 02/12/18 08:21 Labs: Abnormal Lab Results - Last 24 Hours (Table) 02/11/18 02/11/18 02/12/18 Range/Units 17:32 20:16 08:21 WBC (3.8-10.6) k/uL Hgb (11.4-16.0) gm/dL MCHC (31.0-37.0) g/dL RDW (11.5-15.5) % Plt Count (150-450) k/uL Neutrophils # (1.3-7.7) k/uL Monocytes # (0-1.0) k/uL Sodium 135 L (137-145) mmol/L Chloride 111 H (98-107) mmol/L Carbon Dioxide 16 L (22-30) mmol/L BUN 26 H (7-17) mg/dL POC Glucose (mg/dL) 122 H 100 H (75-99) mg/dL Calcium 10.3 H (8.4-10.2) mg/dL AST 94 H (14-36) U/L ALT 53 H (9-52) U/L Alkaline Phosphatase 200 H (38-126) U/L Total Protein 4.7 L (6.3-8.2) g/dL Albumin 2.2 L (3.5-5.0) g/dL 02/12/18 02/12/18 Range/Units 08:21 11:24 WBC 18.2 H (3.8-10.6) k/uL Hgb 10.6 L (11.4-16.0) gm/dL MCHC 29.4 L (31.0-37.0) g/dL RDW 18.7 H (11.5-15.5) % Plt Count 537 H (150-450) k/uL Neutrophils # 15.2 H (1.3-7.7) k/uL Monocytes # 1.2 H (0-1.0) k/uL Sodium (137-145) mmol/L Chloride (98-107) mmol/L Carbon Dioxide (22-30) mmol/L BUN (7-17) mg/dL POC Glucose (mg/dL) 157 H (75-99) mg/dL Calcium (8.4-10.2) mg/dL AST (14-36) U/L ALT (9-52) U/L Alkaline Phosphatase (38-126) U/L Total Protein (6.3-8.2) g/dL Albumin (3.5-5.0) g/dL Microbiology - Last 24 Hours (Table) 02/05/18 18:41 Blood Culture - Final Blood No Growth after 144 hours 02/09/18 15:00 Urine Culture - Final Urine,Voided 02/05/18 14:15 Anaerobic Culture - Final Ascites Fluid 02/05/18 14:15 Gram Stain - Final Ascites Fluid Body Fluid Culture - Final Assessment and Plan Assessment: -Possible acute urinary tract infection -Leukocytosis -multiple lung masses bilaterally, largest in the right upper lobe measuring 4.5 cm, left pleural effusion, enlarged liver, suspect underlying masses, possible retroperitoneal adenopathy; compatible with metastatic disease per CT. possible new primary malignancy. -History of bilateral breast cancer; left breast cancer 1989, right-sided breast cancer 2007 -Hyperkalemia holding off on losartan and and Aldactone. -Hyperlipidemia -Carotid artery disease with recent CABG/MVR repair -Acute renal failure secondary to hypotension and anti-hypertensives -Hyperlipidemia -Mildly elevated troponin secondary to renal dysfunction patient doesn't have any chest pain. Plan: Continue on current medication regime ,monitoring and symptomatic treatment. PT/INR in a.m. Aspirin, Plavix remains on hold, awaiting biopsy. Continue with empiric antibiotics. Prognosis guarded given multiple complex medical issues. Discharge planning in progress for tomorrow to subacute rehab. The impression and plan of care has been dictated as directed. : I performed a history and examination of this patient, discussed the same with the dictator. I agree with the dictator's note ,documented as a scribe. Any additional findings or plans will be noted.
[2018-02-12 16:55] LABS: Glucose,Whole Blood 131 mg/dL (75-99)
[2018-02-12 20:14] LABS: Glucose,Whole Blood 206 mg/dL (75-99)
[2018-02-12] MEDS: PRAVASTATIN SODIUM 20 MG TAB PO SCH (20:20)
[2018-02-13 07:25] LABS: Glucose,Whole Blood 114 mg/dL (75-99)
[2018-02-13] MEDS: INSULIN ASPART 100 UNIT/ML 1 ML 10 ML VIAL SQ SCH ×4 (08:18→20:46)
[2018-02-13 09:12] LABS: Anisocytosis Slight; Basophils % (A) 0 %; Eosinophils # (A) 0.1 k/uL (0-0.7); Eosinophils % (A) 1 %; HCT 33.4 % (34.0-46.0); HGB 9.6 gm/dL (11.4-16.0); Hypochromasia Marked; Lymphocytes # (A) 1.2 k/uL (1.0-4.8); Lymphocytes % (A) 8 %; MCH 25.4 pg (25.0-35.0); MCHC 28.8 g/dL (31.0-37.0); MCV 88.3 fL (80.0-100.0); Mean Platelet Volume 7.2; Monocytes # (A) 0.9 k/uL (0-1.0); Monocytes % (A) 6 %; Neutrophils # (A) 13.3 k/uL (1.3-7.7); Neutrophils % (A) 85 %; Platelet Count 464 k/uL (150-450); RBC 3.78 m/uL (3.80-5.40); RDW 18.8 % (11.5-15.5); WBC 15.6 k/uL (3.8-10.6)
[2018-02-13 09:17] LABS: INR 1.4 (<1.2); Prothrombin Time 13.1 sec (9.0-12.0)
[2018-02-13] MEDS: CHOLECALCIFEROL 1,000 UNIT TAB PO SCH (09:53)
[2018-02-13] MEDS: FERROUS SULFATE 325 MG TAB PO SCH (09:53)
[2018-02-13] MEDS: CARVEDILOL 3.125 MG TAB PO SCH (09:53)
[2018-02-13] MEDS: SODIUM CHLORIDE 0.9% 1,000 ML IV SCH ×2 (10:45→20:40)
[2018-02-13 10:59] LABS: Glucose,Whole Blood 89 mg/dL (75-99)
--- NOTE | 2018-02-13 12:22 | P.PN ---
Subjective Progress Note Date: 02/13/18 Principal diagnosis: Nodular densities, right upper lobe mass, rule out malignancy This is a 77-year-old white female patient of Dr. Aila giordano, who presented to the emergency department on 02/05/2018 at 1500 for evaluation of increasing generalized weakness, lightheadedness, dizziness. Patient had a three-vessel coronary artery bypass grafting, with DESOUZA to the LAD, reverse SVG to the RCA, and OM, and mitral valve repair and left atrial appendage exclusion on [address] Alvarez. Other medical history includes hypertension, hyperlipidemia, left breast cancer in 1989 with mastectomy with lymph node dissection followed by chemoradiation, and right breast cancer in 2007 with radiation, carotid artery disease status post left carotid endarterectomy, history of CVA, diabetes mellitus, nicotine dependence which is in remission. In the postoperative period patient had developed atrial fibrillation, currently in sinus rhythm. Patient also developed postoperative blood loss anemia, with the hemoglobin as low as 6.2 at the lowest, requiring blood transfusions. Her iron levels were found to be low, and patient did receive 2 iron transfusions. This admission her hemoglobin is 10.8. White count was 15.1 , platelet count is 687, sodium is 132, potassium is 5.5, anion gap was mildly elevated at 13.2, BUN was 39, creatinine was 1.4, alkaline phosphatase was 175, ALT was 50, AST was 85, proBNP was elevated at 9040, troponins were 0.142, 0.122 , and 0.134. Urinalysis showed small amount of blood, large leukocyte esterase , and WBCs. Patient denies any urinary symptoms.Denies any fever or chills. Denies any significant chest congestion, wheezing. No nausea or vomiting. No diarrhea. She has mild pretibial edema. Denied any chest pain, denied any hemoptysis or chest wall discomfort. Chest x-ray was taken and showed a mass present in the superior segment of right lower lobe or possibly right upper lobe showing approximately 4.7 cm and could be pleural based. No pneumothorax, there was smaller nodules present within the right lung, this was compared to the previous chest x-ray and were not seen there. There is a slight blunting of the left costophrenic angle. Today patient is seen in urination on selective care unit, she is resting comfortably in bed, in no significant distress, afebrile, room air pulse ox is 99%, hemodynamic was stable. Patient did have right thoracentesis on 07/31/2017 with drainage of 800 mL of pleural fluid, and the cultures were negative. No cytology was done. On 02/07/2018 patient seen in follow-up on selective care unit. Breathing has not much improved, yesterday we gave patient a dose of Lasix, net fluid balance is difficult to estimate as there was no accurate I and O's recorded. Patient' s weight has actually increased according to the recorded weights. No fever or chills, patient has been started on Zithromax and Rocephin, and today's chest x- ray showed multiple lung masses bilaterally, with the largest in the right upper lobe, and areas of nodular lesions. Right pleural effusion has resolved. CT of the chest without contrast was obtained, and showed multiple lung masses bilaterally, with the largest right upper lobe measuring 4.5 cm and adjacent to the pleura in the superior segment of the right lower lobe. There is approximately 20-30 lesions, areas of scarring, there were no definitive greater than 1 cm hilar or mediastinal lymph nodes, however the CAT scan was done without contrast. On 02/08/2018 patient seen in follow-up on selective care unit. Interventional radiology was consulted for fine-needle aspiration biopsy of the right lung mass , and it was recommended to obtain ultrasound of the liver as her weren't suspicious masses seen on the CT chest. Ultrasound of the liver showed enlargement with heterogeneity which was suspicious for diffuse metastatic disease, moderate right-sided hydronephrosis. IR requested aspirin and Plavix on hold at least for 7 days, heparin will be held as well. Worsening difficulty breathing, patient is likely comfortable, currently on room air with a pulse ox of 95%, she is afebrile, hemodynamically stable. She is having lower lumbar area back discomfort, but no acute distress. Lung sounds are clear to auscultation. She remains in sinus rhythm. He is afebrile. Cultures are negative. No new labs today. He has service has been consulted in regards to the ultrasound results. The patient is seen again today 02/09/2018 in follow-up on the selective care unit. She is currently sitting up in a chair at the bedside. She is awake and alert in no acute distress. She denies any worsening shortness of breath, cough or congestion. Maintaining good O2 saturations in the 90s on room air. Ascites fluid reveals no growth. Blood cultures reveal no growth. Count 14.8. Hemoglobin 9.8. Creatinine 0.97. She remains on ceftriaxone. The plan is for interventional radiology to perform FNA of the liver for diagnosis. The patient is seen again today 02/12/2018 in follow-up on the regular medical floor. She is currently resting quite comfortably in bed. No worsening shortness of breath, cough or congestion. He continues to maintain good O2 saturations in the mid 90s on room air. She's afebrile. Hemodynamically stable. Urine, blood and ascites fluid cultures all reveal no growth. White count 18.2. Hemoglobin 10.6. Sodium 135, chloride 111, bicarb 16, creatinine 0.87. Alk phos 200, AST 94, ALT 53. She remains on ceftriaxone. The patient is seen again today 02/13/2018 in follow-up on the regular medical floor. She is awake and alert in no acute distress. She is currently resting comfortably in bed. She is maintaining good O2 saturations in the 90s on room air. She's been afebrile. Hemodynamically stable. Abdominal ultrasound revealed minimal ascites. The plan is for fine-needle aspirate of the hepatic mass tomorrow by interventional radiology. White count 15.6. Hemoglobin 9.6. INR 1.4. Objective - Vital Signs Vital signs: Vital Signs Temp 97.9 F 02/13/18 11:06 Pulse 95 02/13/18 11:06 Resp 16 02/13/18 11:06 BP 130/60 02/13/18 11:06 Pulse Ox 97 02/13/18 11:06 Intake & Output 02/12/18 02/13/18 02/13/18 18:59 06:59 18:59 Intake Total 2670 1920 Output Total 800 Balance 1870 1920 Weight 52.5 kg 52.5 kg Intake: Intake, IV Titration 850 1200 Amount Sodium Chloride 0.9% 1, 800 1200 000 ml @ 100 mls/hr IV . Q10H [facility] Rx#:[id number] cefTRIAXone 1,000 mg In 50 Sodium Chloride 0.9% 50 ml @ 100 mls/hr IVPB Q24HR [facility] Rx#:[id number] Oral 1820 720 Output: Urine 800 Other: Voiding Method Toilet Toilet # Voids 4 2 - Exam GENERAL EXAM: Alert, thin frail looking female, comfortable in no apparent distress. HEAD: Normocephalic/atraumatic. EYES: Normal reaction of pupils, equal size. Conjunctiva pink, sclera white. NOSE: Clear with pink turbinates. THROAT: No erythema or exudates. NECK: No masses, no JVD, no thyroid enlargement, no adenopathy. CHEST: No chest wall deformity. Symmetrical expansion. LUNGS: Equal air entry with no crackles, wheeze, rhonchi or dullness. CVS: Regular rate and rhythm, normal S1 and S2, no gallops, no murmurs, no rubs ABDOMEN: Soft, nontender. No hepatosplenomegaly, normal bowel sounds, no guarding or rigidity. EXTREMITIES: No clubbing, mild pretibial edema no cyanosis, 2+ pulses and upper and lower extremities. MUSCULOSKELETAL: Muscle strength and tone normal. SPINE: No scoliosis or deformity SKIN: No rashes CENTRAL NERVOUS SYSTEM: Alert and oriented -3. No focal deficits, tone is normal in all 4 extremities. PSYCHIATRIC: Alert and oriented -3. Appropriate affect. Intact judgment and insight. - Labs CBC & Chem 7: 02/13/18 08:13 02/12/18 08:21 Labs: Abnormal Lab Results - Last 24 Hours (Table) 02/12/18 02/12/18 02/13/18 Range/Units 16:54 20:08 07:23 WBC (3.8-10.6) k/uL RBC (3.80-5.40) m/uL Hgb (11.4-16.0) gm/dL Hct (34.0-46.0) % MCHC (31.0-37.0) g/dL RDW (11.5-15.5) % Plt Count (150-450) k/uL Neutrophils # (1.3-7.7) k/uL PT (9.0-12.0) sec INR (<1.2) POC Glucose (mg/dL) 131 H 206 H 114 H (75-99) mg/dL 02/13/18 02/13/18 Range/Units 08:13 08:13 WBC 15.6 H (3.8-10.6) k/uL RBC 3.78 L (3.80-5.40) m/uL Hgb 9.6 L (11.4-16.0) gm/dL Hct 33.4 L (34.0-46.0) % MCHC 28.8 L (31.0-37.0) g/dL RDW 18.8 H (11.5-15.5) % Plt Count 464 H (150-450) k/uL Neutrophils # 13.3 H (1.3-7.7) k/uL PT 13.1 H (9.0-12.0) sec INR 1.4 H (<1.2) POC Glucose (mg/dL) (75-99) mg/dL Assessment and Plan Assessment: Assessment: #1. Right upper lobe mass, multiple nodular area bilaterally, possibly related to metastatic or new primary malignancy. Chest x-ray revealed a new right upper lobe mass, and new nodularity within the right lung not previously seen on the chest x-rays from September 2017. CT chest showed multiple areas of lung masses bilaterally, with the largest in the right upper lobe, adjacent to the pleura in the superior segment of the right lower lobe, there were approximately 20-30 lesions. #2. Multiple liver masses suspicious for diffuse metastatic disease. Patient will be set up for fine-needle aspiration biopsy with interventional radiology of the liver. #3. Leukocytosis #4. Asymptomatic bacteriuria, remains on ceftriaxone #5. Elevated troponins #6. Elevated proBNP of 9040, suggesting possibility of acute congestive heart failure, systolic in nature. Mildly impaired left ventricular systolic function with ejection fraction 40-45%. #7. Acute kidney injury #8. Mild hyponatremia #9. Coronary artery disease, severe mitral valve regurgitation, status post three-vessel coronary artery bypass grafting, with DESOUZA to LAD, reverse SVG to the RCA and OM, and mitral valve repair with exclusion of left atrial appendage , on 07/24/2017. Patient had postoperative A. fib, blood loss anemia requiring blood transfusions, small biapical pneumothoraces, and right sided pleural effusion requiring right-sided thoracentesis with drainage of 800 mL of pleural fluid, and the pleural fluid cultures were negative, no cytology was done. #10. History of left breast cancer in 1989 with ostectomy and lymph node resection, followed by chemoradiation, and chronic left arm lymphedema, history of right-sided breast cancer in 2008 that is post radiation. #11. Diabetes mellitus type 2 #12. Hypertension, hyperlipidemia #13. History of CVA #14. Carotid artery stenosis, status post left carotid endarterectomy Plan: The patient this was seen and evaluated by Dr. Samuel. Awaiting FNA of the liver mass scheduled for tomorrow. No pulmonary complaints. We will continue to follow make further recommendations based on her clinical status. I, the cosigning physician, performed a history & physical examination of the patient. Lungs sounds are clear. Maintaining good O2 saturations in the 90s on room air. I discussed the assessment and plan of care with my nurse practitioner, Bertha Dinero. I attest to the above note as dictated by her.
[2018-02-13 16:36] LABS: Glucose,Whole Blood 175 mg/dL (75-99)
--- NOTE | 2018-02-13 17:16 | PN ---
PROGRESS NOTE DATE OF SERVICE: 02/13/2018 This 77-year-old woman who was admitted with multiple medical problems is slated to have liver biopsy tomorrow. No chest pain. No palpitations. No fever. EXAM: GENERAL: Alert and oriented times three. VITAL SIGNS: Pulse is 95. Blood pressure 136/70. Respiratory rate 16. Temperature 97.9, pulse ox 97% on room air. HEENT: Conjunctivae normal. Oral mucosa moist. NECK: Neck is no jugular venous distention. No carotid bruit. No lymph node enlargement. CARDIOVASCULAR: S1, S2 muffled. RESPIRATORY: Breath sounds diminished in the bases. Scattered rhonchi and no crackles. ABDOMEN is soft. Hepatomegaly present. NERVOUS SYSTEM: No focal deficits. LABS: WBC 15.3, hemoglobin 9.6, INR 1.4. ASSESSMENT: 1. Acute urinary tract infection present on admission. 2. Leukocytosis. 3. Multiple lung masses bilaterally, largest in the right upper lobe 4 point cm left pleural effusion. 4. Hepatomegaly with underlying mass with possible METS. 5. History of bilateral breast cancer. 6. Hypokalemia. 7. Hyperlipidemia. 8. Carotid artery disease. 9. Acute renal failure. 10.Hyperlipidemia. 11.Mildly elevated troponin, undetermined etiology. RECOMMENDATIONS AND DISCUSSION: Recommend to continue current medications, management and symptomatic treatment. Otherwise, at this time, I would recommend continue with current medication. Ultrasound also showed only minimal ascites. I would recommend intervention radiology and possible liver biopsy. Guarded prognosis. Further recommendations to follow. [email or web address] / LEESAN: [id number] /
[2018-02-13 20:28] LABS: Glucose,Whole Blood 132 mg/dL (75-99)
[2018-02-13] MEDS: PRAVASTATIN SODIUM 20 MG TAB PO SCH (20:46)
[2018-02-13 22:28] LABS: CA27.29 Breast Ca Marker 875.2 U/mL (0.0-38.5)
[2018-02-14 06:22] LABS: Glucose,Whole Blood 92 mg/dL (75-99)
[2018-02-14 07:01] LABS: Glucose,Whole Blood 95 mg/dL (75-99)
[2018-02-14] MEDS: INSULIN ASPART 100 UNIT/ML 1 ML 10 ML VIAL SQ SCH ×4 (07:26→21:42)
[2018-02-14] MEDS: SODIUM CHLORIDE 0.9% 1,000 ML IV SCH ×2 (07:46→21:42)
[2018-02-14] MEDS: CARVEDILOL 3.125 MG TAB PO SCH (07:47)
[2018-02-14] MEDS: CHOLECALCIFEROL 1,000 UNIT TAB PO SCH ×2 (07:47→07:50)
[2018-02-14] MEDS: FERROUS SULFATE 325 MG TAB PO SCH ×2 (07:47→07:50)
[2018-02-14 08:46] LABS: Anisocytosis Slight; Basophils % (A) 0 %; Eosinophils # (A) 0.1 k/uL (0-0.7); Eosinophils % (A) 1 %; HCT 34.3 % (34.0-46.0); HGB 10.1 gm/dL (11.4-16.0); Hypochromasia Marked; Lymphocytes # (A) 1.1 k/uL (1.0-4.8); Lymphocytes % (A) 8 %; MCHC 29.4 g/dL (31.0-37.0); MCV 88.6 fL (80.0-100.0); Mean Platelet Volume 7.3; Monocytes # (A) 0.8 k/uL (0-1.0); Monocytes % (A) 6 %; Neutrophils # (A) 11.9 k/uL (1.3-7.7); Neutrophils % (A) 85 %; Platelet Count 537 k/uL (150-450); RBC 3.87 m/uL (3.80-5.40); WBC 13.9 k/uL (3.8-10.6)
[2018-02-14 11:05] LABS: Glucose,Whole Blood 85 mg/dL (75-99)
--- NOTE | 2018-02-14 14:41 | P.PN ---
Subjective Progress Note Date: 02/14/18 Principal diagnosis: Right upper lobe mass, malignant unless proven otherwise. This is a 77-year-old white female patient of Dr. Alia giordano, who presented to the emergency department on 02/05/2018 at 1500 for evaluation of increasing generalized weakness, lightheadedness, dizziness. Patient had a three-vessel coronary artery bypass grafting, with DESOUZA to the LAD, reverse SVG to the RCA, and OM, and mitral valve repair and left atrial appendage exclusion on [address] Alvarez. Other medical history includes hypertension, hyperlipidemia, left breast cancer in 1989 with mastectomy with lymph node dissection followed by chemoradiation, and right breast cancer in 2007 with radiation, carotid artery disease status post left carotid endarterectomy, history of CVA, diabetes mellitus, nicotine dependence which is in remission. In the postoperative period patient had developed atrial fibrillation, currently in sinus rhythm. Patient also developed postoperative blood loss anemia, with the hemoglobin as low as 6.2 at the lowest, requiring blood transfusions. Her iron levels were found to be low, and patient did receive 2 iron transfusions. This admission her hemoglobin is 10.8. White count was 15.1 , platelet count is 687, sodium is 132, potassium is 5.5, anion gap was mildly elevated at 13.2, BUN was 39, creatinine was 1.4, alkaline phosphatase was 175, ALT was 50, AST was 85, proBNP was elevated at 9040, troponins were 0.142, 0.122 , and 0.134. Urinalysis showed small amount of blood, large leukocyte esterase , and WBCs. Patient denies any urinary symptoms.Denies any fever or chills. Denies any significant chest congestion, wheezing. No nausea or vomiting. No diarrhea. She has mild pretibial edema. Denied any chest pain, denied any hemoptysis or chest wall discomfort. Chest x-ray was taken and showed a mass present in the superior segment of right lower lobe or possibly right upper lobe showing approximately 4.7 cm and could be pleural based. No pneumothorax, there was smaller nodules present within the right lung, this was compared to the previous chest x-ray and were not seen there. There is a slight blunting of the left costophrenic angle. Today patient is seen in urination on selective care unit, she is resting comfortably in bed, in no significant distress, afebrile, room air pulse ox is 99%, hemodynamic was stable. Patient did have right thoracentesis on 07/31/2017 with drainage of 800 mL of pleural fluid, and the cultures were negative. No cytology was done. On 02/07/2018 patient seen in follow-up on selective care unit. Breathing has not much improved, yesterday we gave patient a dose of Lasix, net fluid balance is difficult to estimate as there was no accurate I and O's recorded. Patient' s weight has actually increased according to the recorded weights. No fever or chills, patient has been started on Zithromax and Rocephin, and today's chest x- ray showed multiple lung masses bilaterally, with the largest in the right upper lobe, and areas of nodular lesions. Right pleural effusion has resolved. CT of the chest without contrast was obtained, and showed multiple lung masses bilaterally, with the largest right upper lobe measuring 4.5 cm and adjacent to the pleura in the superior segment of the right lower lobe. There is approximately 20-30 lesions, areas of scarring, there were no definitive greater than 1 cm hilar or mediastinal lymph nodes, however the CAT scan was done without contrast. On 02/08/2018 patient seen in follow-up on selective care unit. Interventional radiology was consulted for fine-needle aspiration biopsy of the right lung mass , and it was recommended to obtain ultrasound of the liver as her weren't suspicious masses seen on the CT chest. Ultrasound of the liver showed enlargement with heterogeneity which was suspicious for diffuse metastatic disease, moderate right-sided hydronephrosis. IR requested aspirin and Plavix on hold at least for 7 days, heparin will be held as well. Worsening difficulty breathing, patient is likely comfortable, currently on room air with a pulse ox of 95%, she is afebrile, hemodynamically stable. She is having lower lumbar area back discomfort, but no acute distress. Lung sounds are clear to auscultation. She remains in sinus rhythm. He is afebrile. Cultures are negative. No new labs today. He has service has been consulted in regards to the ultrasound results. The patient is seen again today 02/09/2018 in follow-up on the selective care unit. She is currently sitting up in a chair at the bedside. She is awake and alert in no acute distress. She denies any worsening shortness of breath, cough or congestion. Maintaining good O2 saturations in the 90s on room air. Ascites fluid reveals no growth. Blood cultures reveal no growth. Count 14.8. Hemoglobin 9.8. Creatinine 0.97. She remains on ceftriaxone. The plan is for interventional radiology to perform FNA of the liver for diagnosis. The patient is seen again today 02/12/2018 in follow-up on the regular medical floor. She is currently resting quite comfortably in bed. No worsening shortness of breath, cough or congestion. He continues to maintain good O2 saturations in the mid 90s on room air. She's afebrile. Hemodynamically stable. Urine, blood and ascites fluid cultures all reveal no growth. White count 18.2. Hemoglobin 10.6. Sodium 135, chloride 111, bicarb 16, creatinine 0.87. Alk phos 200, AST 94, ALT 53. She remains on ceftriaxone. The patient is seen again today 02/13/2018 in follow-up on the regular medical floor. She is awake and alert in no acute distress. She is currently resting comfortably in bed. She is maintaining good O2 saturations in the 90s on room air. She's been afebrile. Hemodynamically stable. Abdominal ultrasound revealed minimal ascites. The plan is for fine-needle aspirate of the hepatic mass tomorrow by interventional radiology. White count 15.6. Hemoglobin 9.6. INR 1.4. Reevaluated today on 02/14/2018, patient is basically about the same, awaiting for biopsy to be done today. Patient is scheduled to have fine-needle aspiration of hepatic mass by interventional radiology. She is relatively asymptomatic, hemodynamically stable, denies any cough no wheezing no shortness of breath. Labs were reviewed. Objective - Vital Signs Vital signs: Vital Signs Temp 97.4 F L 02/14/18 12:50 Pulse 86 02/14/18 12:50 Resp 16 02/14/18 12:50 BP 105/54 02/14/18 12:50 Pulse Ox 96 02/14/18 12:50 Intake & Output 02/13/18 02/14/18 02/14/18 18:59 06:59 18:59 Intake Total 3800 750 Balance 3800 750 Intake: Intake, IV Titration 800 750 Amount Sodium Chloride 0.9% 1, 800 700 000 ml @ 100 mls/hr IV . Q10H [facility] Rx#:[id number] cefTRIAXone 1,000 mg In 50 Sodium Chloride 0.9% 50 ml @ 100 mls/hr IVPB Q24HR [facility] Rx#:[id number] Oral 3000 Other: Voiding Method Toilet Toilet Toilet # Voids 4 3 1 # Bowel Movements 1 - Exam GENERAL EXAM: Revealed a very frail 77-year-old female in no distress HEAD: Normocephalic/atraumatic. EYES: Normal reaction of pupils, equal size. Pale conjunctiva, no icterus. THROAT: Clear. NECK: No masses, no JVD, no thyroid enlargement, no adenopathy. CHEST: Diminished breath sounds at the bases no rhonchi and no wheeze CVS: Regular rate and rhythm, normal S1 and S2, no gallops, no murmurs, no rubs ABDOMEN: Globular, suspect ascites, no tenderness. Positive bowel sounds. EXTREMITIES: No clubbing, mild pretibial edema no cyanosis, 2+ pulses and upper and lower extremities. MUSCULOSKELETAL: Muscle strength and tone normal. SPINE: No scoliosis or deformity SKIN: No rashes CENTRAL NERVOUS SYSTEM: Alert oriented 3, no gross focal deficit. - Labs CBC & Chem 7: 02/14/18 07:59 02/12/18 08:21 Labs: Abnormal Lab Results - Last 24 Hours (Table) 02/13/18 02/13/18 02/13/18 Range/Units 12:04 16:35 20:27 WBC (3.8-10.6) k/uL Hgb (11.4-16.0) gm/dL MCHC (31.0-37.0) g/dL RDW (11.5-15.5) % Plt Count (150-450) k/uL Neutrophils # (1.3-7.7) k/uL POC Glucose (mg/dL) 175 H 132 H (75-99) mg/dL CA 15-3 Antigen 112.2 H (0.0-32.3) U/mL CA 27-29 875.2 H (0.0-38.5) U/mL 02/14/18 Range/Units 07:59 WBC 13.9 H (3.8-10.6) k/uL Hgb 10.1 L (11.4-16.0) gm/dL MCHC 29.4 L (31.0-37.0) g/dL RDW 19.0 H (11.5-15.5) % Plt Count 537 H (150-450) k/uL Neutrophils # 11.9 H (1.3-7.7) k/uL POC Glucose (mg/dL) (75-99) mg/dL CA 15-3 Antigen (0.0-32.3) U/mL CA 27-29 (0.0-38.5) U/mL Assessment and Plan Assessment: #1. Right upper lobe mass, multiple nodular area bilaterally, considered malignant unless proven otherwise. Awaiting biopsy on the liver masses. #2. Multiple liver masses suspicious for diffuse metastatic disease. Undergoing biopsy today. #3. Leukocytosis #4. Asymptomatic bacteriuria, on ceftriaxone #5. Elevated troponins #6. Elevated proBNP of 9040, suggesting possibility of acute congestive heart failure, systolic in nature. Mildly impaired left ventricular systolic function with ejection fraction 40-45%. #7. Acute kidney injury #8 carotid artery stenosis and previous endarterectomy #9. Coronary artery disease, severe mitral valve regurgitation, status post three-vessel coronary artery bypass grafting, with DESOUZA to LAD, reverse SVG to the RCA and OM, and mitral valve repair with exclusion of left atrial appendage , on 07/24/2017. Patient had postoperative A. fib, blood loss anemia requiring blood transfusions, small biapical pneumothoraces, and right sided pleural effusion requiring right-sided thoracentesis with drainage of 800 mL of pleural fluid, and the pleural fluid cultures were negative, no cytology was done. #10. History of left breast cancer in 1989 with ostectomy and lymph node resection, followed by chemoradiation, and chronic left arm lymphedema, history of right-sided breast cancer in 2007 that is post radiation. #11. Diabetes mellitus type 2 #12. Hypertension, hyperlipidemia #13. History of CVA Recommendation: Continue present treatment plan, overall prognosis is poor, I believe once the tissue diagnosis is made, may have to consider hospice. Will follow on when necessary basis. Time with Patient: Less than 30
[2018-02-14] MEDS ORDERED: HYDROmorphone 1 MG/ML 1 ML SYRINGE IVP STA (15:28)
--- NOTE | 2018-02-14 15:53 | US ---
EXAMINATION TYPE: US biopsy liver DATE OF EXAM: 02/14/2018 HISTORY: Liver masses. FINDINGS: Maximal barrier technique was utilized. The skin overlying a suitable path to the patient' s left lobe liver mass was localized with ultrasound and the overlying skin prepped and draped. Ultr asound was utilized with sterile technique. Lidocaine was used for local anesthesia. A skin fara wa s made with a scalpel. An 18-gauge needle was advanced under direct ultrasound guidance and core spe cimen obtained of the mass. Specimen submitted in formalin to Pathology. Following the procedure, h emostasis achieved and the patient is discharged in stable condition without complication. IMPRESSION:STATUS POST ULTRASOUND GUIDED CORE BIOPSY OF left lobe liver MASS, PATHOLOGY IS PENDING. THIS PROCEDURE IS PERFORMED BY THE UNDERSIGNED.
[2018-02-14 16:56] LABS: Glucose,Whole Blood 82 mg/dL (75-99)
[2018-02-14 20:01] LABS: Glucose,Whole Blood 62 mg/dL (75-99)
[2018-02-14] MEDS: PRAVASTATIN SODIUM 20 MG TAB PO SCH (21:42)
[2018-02-14 21:59] LABS: Glucose,Whole Blood 87 mg/dL (75-99)
[2018-02-14 22:26] LABS: Glucose,Whole Blood 135 mg/dL (75-99)
[2018-02-15] MEDS: SODIUM CHLORIDE 0.9% 1,000 ML IV SCH ×2 (04:35→12:49)
[2018-02-15] MEDS: ACETAMINOPHEN TAB 500 MG TAB PO PRN ×2 (04:36→14:35)
[2018-02-15 07:12] LABS: Glucose,Whole Blood 121 mg/dL (75-99)
[2018-02-15] MEDS: INSULIN ASPART 100 UNIT/ML 1 ML 10 ML VIAL SQ SCH ×3 (07:21→17:33)
[2018-02-15] MEDS: CARVEDILOL 3.125 MG TAB PO SCH (07:53)
[2018-02-15] MEDS: CHOLECALCIFEROL 1,000 UNIT TAB PO SCH (09:18)
[2018-02-15] MEDS: FERROUS SULFATE 325 MG TAB PO SCH (09:18)
[2018-02-15 10:37] LABS: Anisocytosis Slight; Basophils % (A) 0 %; Eosinophils # (A) 0.2 k/uL (0-0.7); Eosinophils % (A) 1 %; HCT 36.1 % (34.0-46.0); Hypochromasia Marked; Lymphocytes # (A) 1.3 k/uL (1.0-4.8); Lymphocytes % (A) 9 %; MCH 25.5 pg (25.0-35.0); MCHC 27.8 g/dL (31.0-37.0); MCV 91.8 fL (80.0-100.0); Mean Platelet Volume 7.4; Monocytes % (A) 7 %; Neutrophils # (A) 12.2 k/uL (1.3-7.7); Neutrophils % (A) 83 %; Platelet Count 497 k/uL (150-450); RBC 3.93 m/uL (3.80-5.40); RDW 18.9 % (11.5-15.5); WBC 14.7 k/uL (3.8-10.6)
--- NOTE | 2018-02-15 10:55 | P.PN ---
Subjective Progress Note Date: 02/14/18 Progress note being dictated for Dr. Oreilly. Interval history:77-year-old wasn't female came in with complaints of generalized tiredness when questioned patient did complain of dysuria that he does have significantly abnormal urine subsequently admitted with Rocephin. Patient is very thin built had a recent coronary artery bypass graft surgery along with a valve replacement surgery. Patient has multiple other issues going on at this time. Patient chest x-ray was obtained which showed a small masslike consolidation because of which pulmonology was consulted I did review the images with Dr. Barron director of product management in the this mass was not present in previous x-rays because of which pulmonology believes may be pneumonia, recommending an of the chest x-ray tomorrow if it's still shows this masslike consolidation will obtain a CAT scan of the chest that at this time her creatinine is borderline. Patient is comparing of cough yellowish sputum production. Because of which pulmonology is recommending to add azithromycin. Patient does have elevated potassium which she is secondary to hemolysis patient is on Aldactone which is being held and losartan is being held as well along with hydrochlorothiazide her blood pressure is on the low normal side. Repeat basic metabolic profile tomorrow patient was started on IV fluids patient had a normal ejection fraction the past although had a pleural effusion post CABG and removal of the fluid from the right to lung. Patient masslike lesion is in the right middle lobe. Patient will be continued on sliding scale insulin and metformin will be held as an Review of Systems REVIEW OF SYSTEMS: CONSTITUTIONAL: No fever HEENT: No recent visual problems or hearing problems. Denied any sore throat. CARDIOVASCULAR: No chest pain, orthopnea, PND, no palpitations, no syncope. PULMONARY: No shortness of breath, no cough, no hemoptysis. GASTROINTESTINAL: No diarrhea, no nausea, no vomiting, no abdominal pain. Normoactive bowel sounds. NEUROLOGICAL: No headaches, no weakness, no numbness. HEMATOLOGICAL: Denies any bleeding or petechiae. GENITOURINARY: As mentioned in HPI MUSCULOSKELETAL/RHEUMATOLOGICAL: Denies any joint pain, swelling, or any muscle pain. ENDOCRINE: Denies any polyuria or polydipsia. The rest of the 14-point review of systems is negative. 02/07/2018 maintained on Zithromax, Rocephin. Remains short of breath. Chest x -ray reported multiple lung masses throughout. Chest CT performed, reporting multiple lung masses bilaterally, largest in the right upper lobe measuring 4.5 cm, left pleural effusion, enlarged liver, suspect underlying masses, possible retroperitoneal adenopathy; compatible with metastatic disease. Sodium 132, creatinine 1.15. Afebrile. 02/08/18 liver ultrasound reported enlarged liver with heterogeneity suspicious for diffuse metastatic disease, moderate right-sided hydronephrosis. Interventional radiology recommending liver biopsy, after holding aspirin, Plavix for a week. GI consulted. Less short of breath today, maintaining O2 sats in the mid 90s on room air. Afebrile, preliminary Cultures negative. 02/09/2018 Patient is seen and examined this morning along with Dr. Oreilly. She was sitting up in chair. Her urinary symptoms are improved. White count continued to be elevated. Patient is on IV antibiotic. 02/11/2018 aspirin and Plavix remain on hold for liver biopsy today. Maintained on empiric antibiotics. remains short of breath. Afebrile. 02/12/2018 liver biopsy scheduled for tomorrow, Plavix and aspirin remain on hold. Abdominal ultrasound reporting minimal ascites. Elevated LFTs, total bili 0.8. Complains of generalized fatigue, exhaustion. Afebrile, WBC 18.2. 02/14/2018 Significant generalized weakness persists. liver biopsy pending with interventional radiology.VSS, denies chest pain, palpitations or increased shortness of breath. Afebrile. Objective - Vital Signs Vital signs: Vital Signs Temp 97.6 F 02/14/18 05:00 Pulse 99 02/14/18 05:00 Resp 18 02/14/18 05:00 BP 116/66 02/14/18 05:00 Pulse Ox 96 02/14/18 05:00 Intake & Output 02/13/18 02/14/18 02/14/18 18:59 06:59 18:59 Intake Total 3800 Balance 3800 Intake: Intake, IV Titration 800 Amount Sodium Chloride 0.9% 1, 800 000 ml @ 100 mls/hr IV . Q10H [facility] Rx#:[id number] Oral 3000 Other: Voiding Method Toilet Toilet Toilet # Voids 4 3 1 # Bowel Movements 1 - Exam GENERAL: The patient is alert and oriented x3, no acute distress. tired appearing HEENT: Pupils are round and equally reacting to light. EOMI. No conjunctival pallor. Normocephalic, atraumatic. CARDIOVASCULAR: S1 and S2 present. No murmurs, rubs, or gallops. PULMONARY: Bilateral bases diminished ,no rhonchi, no wheezing ABDOMEN: Soft, minimal tenderness, distended, normoactive bowel sounds. Hepatomegaly. EXTREMITIES: No cyanosis, clubbing, positive mild lower extremity edema. SKIN: No rashes NEUROLOGICAL: Gross neurological examination did not reveal any focal deficits. - Labs CBC & Chem 7: 02/15/18 09:18 02/12/18 08:21 Labs: Abnormal Lab Results - Last 24 Hours (Table) 02/13/18 02/13/18 02/13/18 Range/Units 12:04 16:35 20:27 WBC (3.8-10.6) k/uL Hgb (11.4-16.0) gm/dL MCHC (31.0-37.0) g/dL RDW (11.5-15.5) % Plt Count (150-450) k/uL Neutrophils # (1.3-7.7) k/uL POC Glucose (mg/dL) 175 H 132 H (75-99) mg/dL CA 15-3 Antigen 112.2 H (0.0-32.3) U/mL CA 27-29 875.2 H (0.0-38.5) U/mL 02/14/18 Range/Units 07:59 WBC 13.9 H (3.8-10.6) k/uL Hgb 10.1 L (11.4-16.0) gm/dL MCHC 29.4 L (31.0-37.0) g/dL RDW 19.0 H (11.5-15.5) % Plt Count 537 H (150-450) k/uL Neutrophils # 11.9 H (1.3-7.7) k/uL POC Glucose (mg/dL) (75-99) mg/dL CA 15-3 Antigen (0.0-32.3) U/mL CA 27-29 (0.0-38.5) U/mL Assessment and Plan Assessment: -Acute urinary tract infection -Leukocytosis secondary to the above -multiple lung masses bilaterally, largest in the right upper lobe measuring 4.5 cm, left pleural effusion,enlarged liver, suspect underlying masses, possible retroperitoneal adenopathy; compatible with metastatic disease per CT. possible new primary malignancy. -History of bilateral breast cancer; left breast cancer 1989, right-sided breast cancer 2007 -Hyperkalemia holding off on losartan and and Aldactone. -Hyperlipidemia -Carotid artery disease with recent CABG/MVR repair -Acute renal failure secondary to hypotension and anti-hypertensives -Hyperlipidemia -Mildly elevated troponin, undetermined etiology, possibly secondary to renal dysfunction patient doesn't have any chest pain. Plan: Continue on current medication regime ,monitoring and symptomatic treatment. Awaiting Liver biopsy today. Continue with empiric antibiotics. Prognosis guarded given multiple complex medical issues. Discharge planning in progress for subacute rehab. The impression and plan of care has been dictated as directed. : I performed a history and examination of this patient, discussed the same with the dictator. I agree with the dictator's note ,documented as a scribe. Any additional findings or plans will be noted.
[2018-02-15 11:31] LABS: Glucose,Whole Blood 129 mg/dL (75-99)
[2018-02-15 11:54] LABS: Calcium 8.8 mg/dL (8.4-10.2); Potassium 4.5 mmol/L (3.5-5.1)
[2018-02-15 12:18] VITALS: BP 123/58; PULSE 85; RESP 15; TEMP 97.9
--- NOTE | 2018-02-15 16:34 | P.DS ---
Providers Date of admission: 02/05/18 18:47 Expected date of discharge: 02/15/18 Attending physician: Sadia Ahmadi Consults: 02/05/18 18:42 Consult Physician Routine Consulting Provider: Jose Manuel Barron Consult Reason/Comments: Lung mass Do you want consulting provider notified?: Yes Consult Physician Routine Consulting Provider: Shoaib Asencio Consult Reason/Comments: Lung mass Do you want consulting provider notified?: Yes Consult Physician Urgent Consulting Provider: Myra Velazco Consult Reason/Comments: Elevated troponin Do you want consulting provider notified?: Already Contacted Primary care physician: [facility] Course: Final Diagnoses: -Acute urinary tract infection -Leukocytosis secondary to the above -multiple lung masses bilaterally, largest in the right upper lobe measuring 4.5 cm, left pleural effusion,enlarged liver, suspect underlying masses, possible retroperitoneal adenopathy; compatible with metastatic disease per CT. possible new primary malignancy. Status post liver biopsy, pathology pending. -History of bilateral breast cancer; left breast cancer 1989, right-sided breast cancer 2007 -Hyperkalemia holding off on losartan and and Aldactone. -Hyperlipidemia -Carotid artery disease with recent CABG/MVR repair -Acute renal failure secondary to hypotension and anti-hypertensives -Hyperlipidemia -Mildly elevated troponin, undetermined etiology, possibly secondary to renal dysfunction patient doesn't have any chest pain. -Possible mild component of acute CHF, systolic dysfunction EF 40-45% Hospital course:77-year-old wasn't female came in with complaints of generalized tiredness when questioned patient did complain of dysuria that he does have significantly abnormal urine subsequently [facility]. Patient is very thin built had a recent coronary artery bypass graft surgery along with a valve replacement surgery. Patient has multiple other issues going on at this time. Patient chest x-ray was obtained which showed a small masslike consolidation because of which pulmonology was consulted I did review the images with Dr. Barron outpatient physical therapist in the this mass was not present in previous x-rays because of which pulmonology believes may be pneumonia, recommending an of the chest x-ray tomorrow if it's still shows this masslike consolidation will obtain a CAT scan of the chest that at this time her creatinine is borderline. Patient is comparing of cough yellowish sputum production. Because of which pulmonology is recommending to add azithromycin. Patient does have elevated potassium which she is secondary to hemolysis patient is on Aldactone which is being held and losartan is being held as well along with hydrochlorothiazide her blood pressure is on the low normal side. Repeat basic metabolic profile tomorrow patient was started on IV fluids patient had a normal ejection fraction the past although had a pleural effusion post CABG and removal of the fluid from the right to lung. Patient masslike lesion is in the right middle lobe. Patient will be continued on sliding scale insulin and metformin will be held as an 02/07/2018 maintained on Zithromax, Rocephin. Remains short of breath. Chest x -ray reported multiple lung masses throughout. Chest CT performed, reporting multiple lung masses bilaterally, largest in the right upper lobe measuring 4.5 cm, left pleural effusion, enlarged liver, suspect underlying masses, possible retroperitoneal adenopathy; compatible with metastatic disease. Sodium 132, creatinine 1.15. Afebrile. 02/08/18 liver ultrasound reported enlarged liver with heterogeneity suspicious for diffuse metastatic disease, moderate right-sided hydronephrosis. Interventional radiology recommending liver biopsy, after holding aspirin, Plavix for a week. GI consulted. Less short of breath today, maintaining O2 sats in the mid 90s on room air. Afebrile, preliminary Cultures negative. 02/09/2018 Patient is seen and examined this morning along with Dr. Oreilly. She was sitting up in chair. Her urinary symptoms are improved. White count continued to be elevated. Patient is on IV antibiotic. 02/11/2018 aspirin and Plavix remain on hold for liver biopsy today. Maintained on empiric antibiotics. remains short of breath. Afebrile. 02/12/2018 liver biopsy scheduled for tomorrow, Plavix and aspirin remain on hold. Abdominal ultrasound reporting minimal ascites. Elevated LFTs, total bili 0.8. Complains of generalized fatigue, exhaustion. Afebrile, WBC 18.2. 02/14/2018 Significant generalized weakness persists. liver biopsy pending with interventional radiology.VSS, denies chest pain, palpitations or increased shortness of breath. Afebrile. Liver biopsy completed, pathology pending. Cleared by consults for discharge patient will be discharged to subacute rehab in a stable condition with guarded prognosis. - Exam GENERAL: The patient is alert and oriented x3, no acute distress. tired appearing CARDIOVASCULAR: S1 and S2 present. No murmurs, rubs, or gallops. PULMONARY: Bilateral bases diminished ,no rhonchi, no wheezing ABDOMEN: Soft, minimal tenderness, distended, normoactive bowel sounds. Hepatomegaly. NEUROLOGICAL: Gross neurological examination did not reveal any focal deficits. Microbiology 02/05/18 18:41 Blood Blood Culture - Final No Growth after 144 hours 02/09/18 15:00 Urine,Voided Urine Culture - Final 02/05/18 14:15 Ascites Fluid Anaerobic Culture - Final 02/05/18 14:15 Ascites Fluid Gram Stain - Final 02/05/18 14:15 Ascites Fluid Body Fluid Culture - Final The impression and plan of care has been dictated as directed. : I performed a history and examination of this patient, discussed the same with the dictator. I agree with the dictator's note ,documented as a scribe. Any additional findings or plans will be noted. Time taken: 35 minutes Patient Condition at Discharge: Stable Plan - Discharge Summary Discharge Rx Participant: No New Discharge Prescriptions: New Cefuroxime Axetil [Ceftin] 500 mg PO BID 3 Days #6 tab INSULIN LISPRO (HumaLOG) [humaLOG] 0 unit SQ ACHS #1 vial Continue Cholecalciferol (Vitamin D3) [Vitamin D3] 2,000 unit PO DAILY Clopidogrel [Plavix] 75 mg PO DAILY Ferrous Sulfate [Iron] 325 mg PO DAILY Pravastatin Sodium [Pravachol] 30 mg PO DAILY Acetaminophen [Tylenol] 1,000 mg PO Q4-6H PRN PRN Reason: Pain Carvedilol [Coreg] 3.125 mg PO DAILY Discontinued Spironolactone [Aldactone] 25 mg PO DAILY metFORMIN HCL [Glucophage] 1,000 mg PO BID Losartan/Hydrochlorothiazide [Losartan-Hctz 50-12.5 mg Tab] 1 tab PO DAILY Discharge Medication List Cholecalciferol (Vitamin D3) [Vitamin D3] 2,000 unit PO DAILY 07/05/17 [History] Clopidogrel [Plavix] 75 mg PO DAILY 01/21/18 [History] Ferrous Sulfate [Iron] 325 mg PO DAILY 01/21/18 [History] Acetaminophen [Tylenol] 1,000 mg PO Q4-6H PRN 02/05/18 [History] Carvedilol [Coreg] 3.125 mg PO DAILY 02/05/18 [History] Pravastatin Sodium [Pravachol] 30 mg PO DAILY 02/05/18 [History] Cefuroxime Axetil [Ceftin] 500 mg PO BID 3 Days #6 tab 02/15/18 [Rx] INSULIN LISPRO (HumaLOG) [humaLOG] 0 unit SQ ACHS #1 vial 02/15/18 [Rx] Follow up Appointment(s)/Referral(s): Dima Jj MD [STAFF PHYSICIAN] - 1 Week Lana Up MD [STAFF PHYSICIAN] - 2 Weeks [facility], [NON-STAFF] - 1 Week Juni Graves DO [Primary Care Provider] - 3 Days Jose Manuel Barron MD [STAFF PHYSICIAN] - 2 Weeks
[2018-02-15 17:07] LABS: Glucose,Whole Blood 263 mg/dL (75-99)
--- NOTE | 2018-02-20 10:43 | CDI ---
Documentation Clarification Form Date: 02/20/2018 10:20:49 AM From: HERACLIO Ghotra; Elisa Kimbrough [employer]ylinder [employer] Operator Phone: If you have a question about this query, please contact Elisa Kimbrough [employer]ylinder Press Operator at [phone] between 8am and 5pm. Admit Date: 02/05/2018 6:47:00 PM Patient Name: Breana Lara Visit Number: [id number] Discharge Date: 02/15/2018 ATTENTION: The Clinical Documentation Specialists (CDI) and [facility] Coding Staff appreciate your assistance in clarifying documentation. Please respond to the clarification below the line at the bottom and electronically sign. The CDI & [facility] Coding staff will review the response and follow-up if needed. Please note: Queries are made part of the Legal Health Record. If you have any questions, please contact the author of this message via ITS. Sadia Montana MD Conflicting documentation has been found in the medical record regarding pneumonia. Possible right pneumonia is documented in the H&P. Consultation 02/06 states pneumonia could also be in the differential for the lung masses. It is not clear if the pneumonia is ruled in or out. History/Risk Factors: History of breast CA with new lung masses. Patient also has pathology proven liver mets. Clinical Indicators: Per chest x-ray, small mass like consolidations. Weakness , slight weight loss, and dizziness. Patient also found to have UTI. Chest x- ray shows metastatic disease and pleural effusion. Treatment: IV antibiotics In your opinion what is the most clinically appropriate diagnosis for this patient? Pneumonia ruled in? Pneumonia ruled out? Other explanation of clinical findings Unable to determine (no explanation for clinical findings) No Pneumonia MTDD
== END 2018-02-15 17:54 | DRG 180 ==
LOC: EC 15:44 → 6SEL 18:47 → 5MS5E 02-09 17:08
PROVIDERS: ADMIT Internal Medicine; ATTEND Internal Medicine
PROC: 0FB23ZX Excision of Left Lobe Liver, Percutaneous Approach, Diagnostic (ICD-10-PCS; principal; 2018-02-14)
DX: C78.00 Secondary malignant neoplasm of unspecified lung (principal); I50.43 Acute on chronic combined systolic (congestive) and diastolic (congestive) heart failure; C78.7 Secondary malignant neoplasm of liver and intrahepatic bile duct; D62 Acute posthemorrhagic anemia; E87.1 Hypo-osmolality and hyponatremia; J90 Pleural effusion, not elsewhere classified; N13.6 Pyonephrosis; N17.9 Acute kidney failure, unspecified; R18.8 Other ascites; D50.9 Iron deficiency anemia, unspecified; D63.8 Anemia in other chronic diseases classified elsewhere; E11.9 Type 2 diabetes mellitus without complications; E78.5 Hyperlipidemia, unspecified; E83.52 Hypercalcemia; E86.0 Dehydration; E87.5 Hyperkalemia; I25.10 Atherosclerotic heart disease of native coronary artery without angina pectoris; I25.2 Old myocardial infarction; I34.0 Nonrheumatic mitral (valve) insufficiency; I48.91 Unspecified atrial fibrillation; K59.00 Constipation, unspecified; R62.7 Adult failure to thrive; Z79.02 Long term (current) use of antithrombotics/antiplatelets; Z79.811 Long term (current) use of aromatase inhibitors; Z79.82 Long term (current) use of aspirin; Z80.0 Family history of malignant neoplasm of digestive organs; Z80.41 Family history of malignant neoplasm of ovary; Z82.49 Family history of ischemic heart disease and other diseases of the circulatory system; Z85.3 Personal history of malignant neoplasm of breast; Z86.73 Personal history of transient ischemic attack (TIA), and cerebral infarction without residual deficits; Z87.891 Personal history of nicotine dependence; Z90.12 Acquired absence of left breast and nipple; Z95.1 Presence of aortocoronary bypass graft; Z95.2 Presence of prosthetic heart valve; Z79.84 Long term (current) use of oral hypoglycemic drugs; Z79.899 Other long term (current) drug therapy; Z88.2 Allergy status to sulfonamides; Z88.8 Allergy status to other drugs, medicaments and biological substances; Z90.49 Acquired absence of other specified parts of digestive tract; Z92.3 Personal history of irradiation; Z92.21 Personal history of antineoplastic chemotherapy; I11.0 Hypertensive heart disease with heart failure
CPT/HCPCS: 36415; 47000; 71045; 71046; 71250; 76705; 76942; 80048; 80053; 80061; 81001; 82150; 82550; 82553; 83036; 83690; 83735; 83880; 84484; 85025; 85610; 86300; 87040; 87070; 87075; 87086; 87205; 88307; 88341; 88342; 93005; 93306; 96361; 96365; 99291

== ENCOUNTER 2018-02-22 13:16 | Inpatient (IN) | payer MEDICARE ==
[2018-02-22] MEDS ORDERED: SODIUM CHLORIDE 0.9% 500 ML 500 ML IV ONE (14:25)
[2018-02-22 14:44] LABS: Anisocytosis Moderate; Basophils % (A) 0 %; Eosinophils # (A) 0.1 k/uL (0-0.7); Eosinophils % (A) 0 %; HGB 11.5 gm/dL (11.4-16.0); Hypochromasia Marked; Lymphocytes # (A) 1.1 k/uL (1.0-4.8); Lymphocytes % (A) 6 %; MCH 26.6 pg (25.0-35.0); MCHC 29.5 g/dL (31.0-37.0); Macrocytosis Slight; Monocytes # (A) 0.7 k/uL (0-1.0); Monocytes % (A) 4 %; Neutrophils # (A) 16.9 k/uL (1.3-7.7); Neutrophils % (A) 90 %; Platelet Count 462 k/uL (150-450); RBC 4.34 m/uL (3.80-5.40); RDW 21.4 % (11.5-15.5); WBC 18.8 k/uL (3.8-10.6)
[2018-02-22 14:48] LABS: INR 1.4 (<1.2); Prothrombin Time 13.4 sec (9.0-12.0)
[2018-02-22 14:51] LABS: Albumin 2.1 g/dL (3.5-5.0); Calcium 7.6 mg/dL (8.4-10.2); Magnesium 2.6 mg/dL (1.6-2.3); Potassium 4.6 mmol/L (3.5-5.1); Total Bilirubin 0.7 mg/dL (0.2-1.3); Total Protein 4.5 g/dL (6.3-8.2)
--- NOTE | 2018-02-22 15:01 | XR ---
EXAMINATION TYPE: XR chest 2V DATE OF EXAM: 02/22/2018 COMPARISON: 02/07/2018 HISTORY: Abnormal laboratory values. Hypertension. Chest pain. TECHNIQUE: Frontal and lateral views of the chest are obtained. FINDINGS: There are numerous bilateral lung masses as seen on the prior that are ill-defined and oscar st radiograph and better evaluated with chest CT. Surgical clips are noted within the right breast. P ost cardiac valvular replacement changes are seen with mediastinal clips and sternotomy wires as well as aortic closure device. Cardiac silhouette is upper limits of normal. There is a new trace left pl eural effusion blunting the left costophrenic angle and obscuring the left hemidiaphragm with left ba silar airspace disease. There is diffuse osseous demineralization. IMPRESSION: New trace left pleural effusion and left basilar airspace disease, likely atelectasis. M ultiple pulmonary masses are redemonstrated compatible with metastatic disease.
[2018-02-22 15:21] LABS: Amorphous Sediment,Urine Rare /hpf; Appearance,Urine Cloudy (Clear); Bilirubin,Urine Negative (Negative); Blood,Urine Small (Negative); Color,Urine Yellow; Glucose,Urine (UA) 1+ (Negative); Granular Casts,Urine 4 /lpf (0); Ketones,Urine Trace (Negative); Leukocyte Esterase,Urine Negative (Negative); Nitrite,Urine Negative (Negative); PH, Urine 5.5 (5.0-8.0); Protein,Urine 2+ (Negative); RBC,Urine 2 /hpf (0-5); Specific Gravity,Urine 1.013 (1.001-1.035); Squamous Epithelial Cell,Urine <1 /hpf (0-4); Urobilinogen,Urine <2.0 mg/dL (<2.0); WBC,Urine 1 /hpf (0-5)
[2018-02-22] MEDS ORDERED: NALOXONE 0.4 MG/ML 1 ML VIAL IV PRN (16:11)
--- NOTE | 2018-02-22 16:23 | ED ---
General Adult HPI - General Chief complaint: Recheck/Abnormal Lab/Rx Stated complaint: ABNORMAL LABS Time Seen by Provider: 02/22/18 13:29 Source: patient, EMS, RN notes reviewed, old records reviewed Mode of arrival: EMS Limitations: no limitations - History of Present Illness Initial comments: 77 yo female presents from the senior care with abnormal laboratory studies. Patient has history of breast cancer, and is currently being worked up for bladder mass. She has had a biopsy and is awaiting these results. She is presenting with abnormal creatinine and BUNs. Patient has no specific complaints the time my evaluation. No headache. No chest pain. No cough. No fever or chills. No abdominal pain. No nausea vomiting. No diarrhea. She does admit that she has not been eating and drinking well. She states she has minimal appetite. - Related Data Home Medications Medication Instructions Recorded Confirmed Cholecalciferol (Vitamin D3) 2,000 unit PO HS 07/05/17 02/22/18 [Vitamin D3] Clopidogrel [Plavix] 75 mg PO HS 01/21/18 02/22/18 Ferrous Sulfate [Iron] 325 mg PO HS 01/21/18 02/22/18 Carvedilol [Coreg] 3.125 mg PO DAILY 02/05/18 02/22/18 Pravastatin Sodium [Pravachol] 30 mg PO HS 02/05/18 02/22/18 Amino Acids/Protein Hydrolys 30 ml PO DAILY 02/22/18 02/22/18 [Pro-Stat Supplement] Bisacodyl [Dulcolax] 10 mg RECTAL DAILY PRN 02/22/18 02/22/18 Furosemide [Lasix] 40 mg PO DIRECTED 02/22/18 02/22/18 Chari-Tussin Dm 10 ml PO BID 02/22/18 02/22/18 INSULIN LISPRO (HumaLOG) [humaLOG] See Protocol SQ ACHS 02/22/18 02/22/18 Lidocaine 4% Cream [Lmx 4] 1 applic TOPICAL TID 02/22/18 02/22/18 Na Phos,M-B/Na Phos,Di-Ba [Fleet 133 ml RECTAL DAILY PRN 02/22/18 02/22/18 Adult] Allergies Allergy/AdvReac Type Severity Reaction Status Date / Time lisinopril Allergy Severe Swelling Verified 02/22/18 14:46 rosuvastatin [From Crestor] AdvReac Severe muscle Verified 02/22/18 14:46 cramping/jt pain Sulfa (Sulfonamide AdvReac headache Verified 02/22/18 14:46 Antibiotics) Review of Systems ROS Statement: Those systems with pertinent positive or pertinent negative responses have been documented in the HPI. ROS Other: All systems not noted in ROS Statement are negative. Past Medical History Past Medical History: Coronary Artery Disease (CAD), Cancer, CVA/TIA, Diabetes Mellitus, Hyperlipidemia, Hypertension Additional Past Medical History / Comment(s): Coronary artery disease, Hx TIA, hypertension, hyperlipidemia, lymphedema of the left upper extremity related to a previous breast surgery, Bilateral breast cancer with lt mastectomy., Radiation Right Breast., low iron- has received iron transfusions., pt had CABG with repair of Mitral Valve (July 2017). History of Any Multi-Drug Resistant Organisms: None Reported Past Surgical History: Breast Surgery, Cholecystectomy, Coronary Bypass/CABG Additional Past Surgical History / Comment(s): lt mastectomy with reconstruction with abdominal flap, carotid endarterectomy, Triple CABG with repair Mitral Valve (July 2017) Past Anesthesia/Blood Transfusion Reactions: No Reported Reaction Additional Past Anesthesia/Blood Transfusion Reaction / Comment(s): . Past Psychological History: No Psychological Hx Reported Smoking Status: Former smoker Past Alcohol Use History: Occasional Past Drug Use History: None Reported - Past Family History Father Family Medical History: Cancer Additional Family Medical History / Comment(s): colon cancer Daughter(s) Family Medical History: Cancer Additional Family Medical History / Comment(s): ovarian cancer Sister(s) Family Medical History: Coronary Artery Disease (CAD) Brother(s) Family Medical History: Coronary Artery Disease (CAD) General Exam Limitations: no limitations General appearance: alert, cachectic Head exam: Present: atraumatic, normocephalic Eye exam: Present: normal appearance, PERRL ENT exam: Present: mucous membranes dry Neck exam: Present: normal inspection. Absent: tenderness, meningismus Respiratory exam: Present: normal lung sounds bilaterally. Absent: respiratory distress, wheezes, rhonchi Cardiovascular Exam: Present: regular rate, normal rhythm GI/Abdominal exam: Present: soft. Absent: distended, tenderness, guarding Extremities exam: Present: pedal edema (. Edema bilateral lower extremities, no signs of infection, there is skin breakdown of the left posterior calf secondary to ruptured bulla) Neurological exam: Present: alert, oriented X3, CN II-XII intact. Absent: motor sensory deficit Skin exam: Present: warm, dry. Absent: cyanosis, diaphoretic Course Vital Signs 02/22/18 02/22/18 02/22/18 13:22 14:22 15:31 Temperature 97.2 F L 97 F L Pulse Rate 92 87 89 Respiratory 18 16 18 Rate Blood Pressure 113/55 99/50 110/49 O2 Sat by Pulse 96 97 96 Oximetry EKG Findings - EKG Comments: EKG Findings:: EKG: Normal sinus rhythm, low voltage QRS, rate of 92, W[place] interval 142, QRS duration 100, QTC 447, no ST segment changes. Medical Decision Making - Medical Decision Making 77 yo female presenting for evaluation of worsening kidney function. Patient has no baseline history of CK D. Creatinine is repeated in the emergency department and is elevated at 2.4, this is above her baseline of 1. Patient additionally has lactic acidosis of 2.7 and a CO2 of 16 which is likely related to uremia and lactic acidosis. Patient does have an elevated white blood cell count 18.8, she has no fever or chills, she is afebrile emergency department, this level will be trended. Patient is given IV hydration for dehydration. She does have significant peripheral edema which is likely related to protein malnutrition and albumin of 2.1. Chest x-ray is negative for focal pneumonia, there is metastatic disease and trace effusion. Patient will be admitted for evaluation of acute renal insufficiency and dehydration. Patient's requests that oncology be placed on consult. Patient has elevation in AST, ELT, and alkaline phosphatase, she has no right upper quadrant pain. This may be related to worsening metastatic disease. - Lab Data Result diagrams: 02/22/18 14:15 02/22/18 14:15 Lab Results 02/22/18 02/22/18 02/22/18 Range/Units 14:15 14:15 14:15 WBC 18.8 H (3.8-10.6) k/uL RBC 4.34 (3.80-5.40) m/uL Hgb 11.5 (11.4-16.0) gm/dL Hct 39.0 (34.0-46.0) % MCV 90.0 (80.0-100.0) fL MCH 26.6 (25.0-35.0) pg MCHC 29.5 L (31.0-37.0) g/dL RDW 21.4 H (11.5-15.5) % Plt Count 462 H (150-450) k/uL Neutrophils % 90 % Lymphocytes % 6 % Monocytes % 4 % Eosinophils % 0 % Basophils % 0 % Neutrophils # 16.9 H (1.3-7.7) k/uL Lymphocytes # 1.1 (1.0-4.8) k/uL Monocytes # 0.7 (0-1.0) k/uL Eosinophils # 0.1 (0-0.7) k/uL Basophils # 0.0 (0-0.2) k/uL Hypochromasia Marked Anisocytosis Moderate Macrocytosis Slight PT 13.4 H (9.0-12.0) sec INR 1.4 H (<1.2) APTT 27.0 (22.0-30.0) sec Sodium 134 L (137-145) mmol/L Potassium 4.6 (3.5-5.1) mmol/L Chloride 108 H (98-107) mmol/L Carbon Dioxide 16 L (22-30) mmol/L Anion Gap 10 mmol/L BUN 53 H (7-17) mg/dL Creatinine 2.42 H (0.52-1.04) mg/dL Est GFR (CKD-EPI)AfAm 22 (>60 ml/min/1.73 sqM) Est GFR (CKD-EPI)NonAf 19 (>60 ml/min/1.73 sqM) Glucose 124 H (74-99) mg/dL Plasma Lactic Acid Ahmet (0.7-2.0) mmol/L Calcium 7.6 L (8.4-10.2) mg/dL Magnesium 2.6 H (1.6-2.3) mg/dL Total Bilirubin 0.7 (0.2-1.3) mg/dL AST 110 H (14-36) U/L ALT 69 H (9-52) U/L Alkaline Phosphatase 324 H (38-126) U/L Total Protein 4.5 L (6.3-8.2) g/dL Albumin 2.1 L (3.5-5.0) g/dL Urine Color Urine Appearance (Clear) Urine pH (5.0-8.0) Ur Specific Marshall (1.001-1.035) Urine Protein (Negative) Urine Glucose (UA) (Negative) Urine Ketones (Negative) Urine Blood (Negative) Urine Nitrite (Negative) Urine Bilirubin (Negative) Urine Urobilinogen (<2.0) mg/dL Ur Leukocyte Esterase (Negative) Urine RBC (0-5) /hpf Urine WBC (0-5) /hpf Ur Squamous Epith Cells (0-4) /hpf Amorphous Sediment (None) /hpf Granular Casts (0) /lpf 02/22/18 02/22/18 Range/Units 14:15 14:45 WBC (3.8-10.6) k/uL RBC (3.80-5.40) m/uL Hgb (11.4-16.0) gm/dL Hct (34.0-46.0) % MCV (80.0-100.0) fL MCH (25.0-35.0) pg MCHC (31.0-37.0) g/dL RDW (11.5-15.5) % Plt Count (150-450) k/uL Neutrophils % % Lymphocytes % % Monocytes % % Eosinophils % % Basophils % % Neutrophils # (1.3-7.7) k/uL Lymphocytes # (1.0-4.8) k/uL Monocytes # (0-1.0) k/uL Eosinophils # (0-0.7) k/uL Basophils # (0-0.2) k/uL Hypochromasia Anisocytosis Macrocytosis PT (9.0-12.0) sec INR (<1.2) APTT (22.0-30.0) sec Sodium (137-145) mmol/L Potassium (3.5-5.1) mmol/L Chloride (98-107) mmol/L Carbon Dioxide (22-30) mmol/L Anion Gap mmol/L BUN (7-17) mg/dL Creatinine (0.52-1.04) mg/dL Est GFR (CKD-EPI)AfAm (>60 ml/min/1.73 sqM) Est GFR (CKD-EPI)NonAf (>60 ml/min/1.73 sqM) Glucose (74-99) mg/dL Plasma Lactic Acid Ahmet 2.7 H* (0.7-2.0) mmol/L Calcium (8.4-10.2) mg/dL Magnesium (1.6-2.3) mg/dL Total Bilirubin (0.2-1.3) mg/dL AST (14-36) U/L ALT (9-52) U/L Alkaline Phosphatase (38-126) U/L Total Protein (6.3-8.2) g/dL Albumin (3.5-5.0) g/dL Urine Color Yellow Urine Appearance Cloudy H (Clear) Urine pH 5.5 (5.0-8.0) Ur Specific Marshall 1.013 (1.001-1.035) Urine Protein 2+ H (Negative) Urine Glucose (UA) 1+ H (Negative) Urine Ketones Trace H (Negative) Urine Blood Small H (Negative) Urine Nitrite Negative (Negative) Urine Bilirubin Negative (Negative) Urine Urobilinogen <2.0 (<2.0) mg/dL Ur Leukocyte Esterase Negative (Negative) Urine RBC 2 (0-5) /hpf Urine WBC 1 (0-5) /hpf Ur Squamous Epith Cells <1 (0-4) /hpf Amorphous Sediment Rare H (None) /hpf Granular Casts 4 (0) /lpf Disposition Clinical Impression: Dehydration, Acute kidney injury Disposition: ADMITTED IP TO THIS HOSP Condition: Stable Is patient prescribed a controlled substance at d/c from ED?: No Referrals: Juni Graves DO [Primary Care Provider] - 1-2 days Time of Disposition: 16:22
[2018-02-22] MEDS: SODIUM CHLORIDE 0.9% 1,000 ML IV SCH (16:35)
[2018-02-22 21:50] VITALS: BMI 18.3
[2018-02-22] MEDS ORDERED: BISACODYL 10 MG SUPP RECTAL PRN (21:58)
[2018-02-22] MEDS ORDERED: NA PHOS,M-B/NA PHOS,DI-BA 133 ML ENEMA RECTAL PRN (21:58)
[2018-02-22] MEDS: LIDOCAINE 2% GEL 30 ML TUBE TOPICAL SCH (23:59)
[2018-02-23] MEDS: SODIUM CHLORIDE 0.9% 1,000 ML IV SCH ×2 (00:33→08:23)
--- NOTE | 2018-02-23 01:04 | HP ---
HISTORY AND PHYSICAL DATE OF SERVICE: 02/22/2018. CHIEF COMPLAINT: Weakness and abnormal labs. HISTORY OF PRESENT ILLNESS: This 77-year-old woman with a past medical history of multiple medical problems including CAD, history of breast cancer, hypertension, hyperlipidemia, diabetes type 2, being followed by Dr. Graves in the outpatient setting, was recently admitted to [facility] with multiple complaints. The patient was discharged to the [facility]. The patient had a UTI. The patient has multiple lung masses bilaterally also. Apparently biopsies were taken. The liver biopsy was done, pathology is pending at this time. Currently the patient was noted to have increasing weakness and abnormal BUN and creatinine. The patient was sent to [facility] and was admitted for evaluation and treatment. There is no history of fevers or rigors. No history of headache , loss of consciousness or seizures at this time. PAST MEDICAL HISTORY: History of diabetes, hypertension, hyperlipidemia, history of lung masses, recent liver biopsy. MEDICATIONS PRIOR TO ADMISSION: Home medications are: 1. Fleet enema daily. 2. Dulcolax 10 mg daily p.r.n. 3. Lispro protocol. 5. Pravachol. 6. ProStat. 7. Lasix 40 mg p.o. 8. Iron. 9. Plavix. 10.Vitamin D3. 11.Coreg. ALLERGIES: LISINOPRIL,CRESTOR, SULFA. FAMILY HISTORY: History of colon cancer in the family. SOCIAL HISTORY: Previous history of smoking. Occasional alcohol intake. REVIEW OF SYSTEMS: ENT: No diminished hearing or vision. CARDIOVASCULAR: No angina. GI: As mentioned. : As mentioned earlier. NERVOUS SYSTEM: As mentioned. ALLERGY/IMMUNOLOGY: As mentioned. MUSCULOSKELETAL: As mentioned. HEMATOLOGY/ONCOLOGY: No history of anemia. ENDOCRINE: No history of diabetes or hypothyroidism. CONSTITUTIONAL: As mentioned. HEMATOLOGY: Negative. RHEUMATOLOGY: Negative. PSYCHIATRY: As mentioned. PHYSICAL EXAMINATION: Alert, oriented x3. Pulse 80, blood pressure 130/70, respirations 18, temperature 97.1, pulse ox 94% on room air. GENERAL: Oral mucosa moist. NECK: No jugular venous distention. No lymph node enlargement. CARDIOVASCULAR: S1 and S2 muffled. LUNGS: Breath sounds diminished in the bases. Few scattered rhonchi. No crackles. ABDOMEN: Soft, nontender. Hepatomegaly present. LEGS: Bilateral leg edema. NERVOUS SYSTEM: Higher functions as mentioned. Moves all limbs equally. Mild diffuse weakness. LYMPHATICS: No lymph nodes palpable in the neck, axillae or groin. SKIN: No ulcer or rash. LABS: WBC 18.8, sodium 134, creatinine is 2.42. LFTs are noted. ASSESSMENT: 1. Renal failure, acute, possibly prerenal acute tubular necrosis. Diminished p.o. intake. 2. Metastatic carcinoma of primary urothelial origin. 3. Possible multiple lung masses with hepatic mass, possible malignancy status post biopsy. 4. History of bilateral breast cancer. 5. Gait dysfunction. 6. Elevated plasma lactic acid. 7. History of coronary artery disease. 8. Cerebrovascular accident, transient ischemic attack. 9. Diabetes mellitus type 2. 10.Hypertension. 11.Hyperlipidemia. 12.Lymphedema of the left upper extremity to the previous breast surgery. 13.History of coronary artery disease, coronary artery bypass grafting. 14.FULL CODE. RECOMMENDATIONS AND DISCUSSION: In this 77-year-old woman who presented with multiple complex medical issues, we will monitor the patient closely, continue the current management and symptomatic treatment. The most recent biopsy report of the liver biopsy showed metastatic carcinoma with a primary of urothelial origin. #2 metastatic carcinoma with primary urothelial origin thank you. We will continue to monitor. Overall prognosis guarded because of multiple complex medical issues. We will continue symptomatic treatment. Dr. Asencio will be consulted. Resume the home medications. Further recommendations to follow. MMODL / IJN: [id number] / [id number]
[2018-02-23 05:57] LABS: Glucose,Whole Blood 162 mg/dL (75-99)
[2018-02-23] MEDS: INSULIN ASPART 100 UNIT/ML 1 ML 10 ML VIAL SQ SCH ×4 (06:30→20:11)
[2018-02-23 07:04] LABS: Anisocytosis Moderate; Basophils % (A) 0 %; Eosinophils # (A) 0.1 k/uL (0-0.7); Eosinophils % (A) 0 %; HCT 37.6 % (34.0-46.0); HGB 10.8 gm/dL (11.4-16.0); Hypochromasia Marked; Lymphocytes % (A) 5 %; MCH 26.2 pg (25.0-35.0); MCHC 28.8 g/dL (31.0-37.0); Macrocytosis Slight; Mean Platelet Volume 7.1; Monocytes # (A) 0.8 k/uL (0-1.0); Monocytes % (A) 4 %; Neutrophils # (A) 16.6 k/uL (1.3-7.7); Neutrophils % (A) 90 %; Platelet Count 375 k/uL (150-450); RBC 4.14 m/uL (3.80-5.40); RDW 22.1 % (11.5-15.5); WBC 18.5 k/uL (3.8-10.6)
[2018-02-23 07:40] LABS: Calcium 7.2 mg/dL (8.4-10.2); Potassium 4.7 mmol/L (3.5-5.1); Total Bilirubin 0.7 mg/dL (0.2-1.3); Total Protein 4.4 g/dL (6.3-8.2)
[2018-02-23] MEDS: CARVEDILOL 3.125 MG TAB PO SCH (08:22)
[2018-02-23] MEDS: guaiFENesin-Coden 100-10MG/5ML 10 ML CUP PO SCH ×2 (08:22→22:33)
[2018-02-23] MEDS ORDERED: NON-FORMULARY DRUG (Amino Acids/Protein Hydrolys [Pro-Stat Supplement] 30 ML) PO SCH (09:00)
[2018-02-23] MEDS: LIDOCAINE 2% GEL 30 ML TUBE TOPICAL SCH ×3 (10:17→22:52)
[2018-02-23 11:56] LABS: Glucose,Whole Blood 180 mg/dL (75-99)
--- NOTE | 2018-02-23 12:08 | P.NPCON ---
History of Present Illness - Reason for Consult acute renal failure - History of Present Illness Reason for consultation: Acute kidney injury History of present illness: Patient is a 77-year-old female seen in renal consultation for acute kidney injury. Her baseline creatinine is 1 and was elevated at 2.4-1 admission. It is up to 2.53 today. Patient received 1 L bolus of normal saline and then received maintenance fluids with normal saline at 75 mL an hour overnight. She was noted to develop worsening edema in the fluids were discontinued this morning. Oral intake is fair. No vomiting or diarrhea. Admits to good urine output. No hematuria or dysuria. Denies chest pain. Patient has history of breast cancer which was initially diagnosed in the mid and she underwent mastectomy along with chemo and radiation. About 5 years ago she again underwent radiation therapy. She is now noted to have pulmonary and liver mass and states she had a liver biopsy done about a week ago which was suggestive of malignancy. She follows with Dr. Asencio as outpatient. Denies use of NSAIDs. Denies family history of renal disease. Vital signs are stable. General: The patient appeared well nourished and normally developed. HEENT: Head exam is unremarkable. Neck is without jugular venous distension. LUNGS: Lungs are clear to auscultation and percussion. Breath sounds decreased. HEART: Rate and Rhythm are regular. First and second heart sounds normal. No murmurs, rubs or gallops. ABDOMEN: Abdominal exam reveals normal bowel sounds. Non-tender and non- distended. No evidence of peritonitis. EXTREMITITES: 2+ edema. Past Medical History Past Medical History: Coronary Artery Disease (CAD), Cancer, CVA/TIA, Diabetes Mellitus, Hyperlipidemia, Hypertension Additional Past Medical History / Comment(s): Coronary artery disease, Hx TIA, hypertension, hyperlipidemia, lymphedema of the left upper extremity related to a previous breast surgery, Bilateral breast cancer with lt mastectomy., Radiation Right Breast., low iron- has received iron transfusions., pt had CABG with repair of Mitral Valve (July 2017). History of Any Multi-Drug Resistant Organisms: None Reported Past Surgical History: Breast Surgery, Cholecystectomy, Coronary Bypass/CABG Additional Past Surgical History / Comment(s): lt mastectomy with reconstruction with abdominal flap, carotid endarterectomy, Triple CABG with repair Mitral Valve (July 2017) Past Anesthesia/Blood Transfusion Reactions: No Reported Reaction Additional Past Anesthesia/Blood Transfusion Reaction / Comment(s): . Past Psychological History: No Psychological Hx Reported Smoking Status: Former smoker Past Alcohol Use History: Occasional Additional Past Alcohol Use History / Comment(s): smoked 15 years, 2 ppd ,quit 1987. Past Drug Use History: None Reported - Past Family History Father Family Medical History: Cancer Additional Family Medical History / Comment(s): colon cancer Daughter(s) Family Medical History: Cancer Additional Family Medical History / Comment(s): ovarian cancer Sister(s) Family Medical History: Coronary Artery Disease (CAD) Brother(s) Family Medical History: Coronary Artery Disease (CAD) Medications and Allergies Home Medications Medication Instructions Recorded Confirmed Type Cholecalciferol (Vitamin D3) 2,000 unit PO HS 07/05/17 02/22/18 History [Vitamin D3] Clopidogrel [Plavix] 75 mg PO HS 01/21/18 02/22/18 History Ferrous Sulfate [Iron] 325 mg PO HS 01/21/18 02/22/18 History Carvedilol [Coreg] 3.125 mg PO DAILY 02/05/18 02/22/18 History Pravastatin Sodium [Pravachol] 30 mg PO HS 02/05/18 02/22/18 History Amino Acids/Protein Hydrolys 30 ml PO DAILY 02/22/18 02/22/18 History [Pro-Stat Supplement] Bisacodyl [Dulcolax] 10 mg RECTAL DAILY PRN 02/22/18 02/22/18 History Furosemide [Lasix] 40 mg PO DIRECTED 02/22/18 02/22/18 History Chari-Tussin Dm 10 ml PO BID 02/22/18 02/22/18 History INSULIN LISPRO (HumaLOG) [humaLOG] See Protocol SQ ACHS 02/22/18 02/22/18 History Lidocaine 4% Cream [Lmx 4] 1 applic TOPICAL TID 02/22/18 02/22/18 History Na Phos,M-B/Na Phos,Di-Ba [Fleet 133 ml RECTAL DAILY PRN 02/22/18 02/22/18 History Adult] Allergies Allergy/AdvReac Type Severity Reaction Status Date / Time lisinopril Allergy Severe Swelling Verified 02/22/18 14:46 rosuvastatin [From Crestor] AdvReac Severe muscle Verified 02/22/18 14:46 cramping/jt pain Sulfa (Sulfonamide AdvReac headache Verified 02/22/18 14:46 Antibiotics) Physical Exam Vitals: Vital Signs Temp Pulse Pulse Resp BP BP Pulse Ox 02/23/18 10:47 97.0 F L 76 18 91/55 92 L 02/23/18 10:18 76 18 02/23/18 04:00 75 18 149/77 95 02/23/18 00:00 97.8 F 75 18 132/55 96 02/22/18 20:00 97.1 F L 80 18 137/77 94 L 02/22/18 19:50 98.4 F 88 18 109/53 95 02/22/18 19:13 97.1 F L 67 18 122/58 94 L 02/22/18 18:39 98.2 F 86 18 134/57 97 02/22/18 15:31 97 F L 89 18 110/49 96 02/22/18 14:22 87 16 99/50 97 02/22/18 13:22 97.2 F L 92 18 113/55 96 Intake and Output 02/22/18 02/23/18 02/23/18 22:59 06:59 14:59 Intake Total 50 120 410 Output Total 250 0 175 Balance -200 120 235 Intake: Intake, IV Titration 290 Amount Sodium Chloride 0.9% 1, 240 000 ml @ 75 mls/hr IV . [id number] [facility] Rx#:[id number] cefTRIAXone 1,000 mg In 50 Sodium Chloride 0.9% 50 ml @ 100 mls/hr IVPB Q24HR [facility] Rx#:[id number] Oral 50 120 120 Output: Urine 250 0 175 Other: Voiding Method Bedpan Bedpan Bedpan Diaper Diaper Diaper Incontinent Incontinent Incontinent # Voids 1 Weight 45.359 kg 45.359 kg 45.359 kg Results - Lab Results Most recent lab results Calcium 7.2 mg/dL (8.4-10.2) L 02/23/18 05:48 Magnesium 2.6 mg/dL (1.6-2.3) H 02/22/18 14:15 02/23/18 05:48 02/23/18 05:48 Assessment and Plan Plan: Assessment: 1. Acute kidney injury secondary to ATN secondary to diuresis and poor oral intake. Creatinine up to 2.53 today. Rule out obstructive uropathy. Baseline creatinine is near 1. 2. Lower extremity edema. This is related to hypoalbuminemia. 3. Metabolic acidosis secondary to acute kidney injury and lactic acidosis. 4. History of breast cancer. Now noted to have metastatic disease. Oncology following. 5. Hypocalcemia secondary to hypoproteinemia. Corrected calcium is in the normal range. Plan: I will give her 25 g of albumin IV today. Lasix 40 mg IV once after albumin infusion completed. Encouraged oral intake. Check bladder scan to rule out urinary retention. Check renal ultrasound. Repeat electrolytes in the morning. Add oral sodium bicarbonate. Thank you for the consultation. I will continue to follow the patient with you during her hospital stay.
[2018-02-23] MEDS ORDERED: FUROSEMIDE 10 MG/ML 4 ML VIAL IV STA (12:35)
--- NOTE | 2018-02-23 12:47 | US ---
EXAMINATION TYPE: US kidneys/renal and bladder DATE OF EXAM: 02/23/2018 COMPARISON: None. CLINICAL HISTORY: jose a. abnormal labs EXAM MEASUREMENTS: Right Kidney: 10.1 x 5.1 x 5.0 cm Left Kidney: 9.7 x 5.1 x 5.8 cm Right Kidney: possible hydronephrosis with internal echoes Left Kidney: Limited visualization due to patient position. Bladder: Posterior focal thickening vs lesion - 1.7 x 4.4 x 1.1 cm Bilateral Jets not seen Ascites visualized IMPRESSION: 1. RIGHT-SIDED HYDRONEPHROSIS. 2. LIMITED VIEWS OF THE LEFT KIDNEY DEMONSTRATE NO HYDRONEPHROSIS. 3. SMALL AMOUNT OF ASCITES. 4. SLUDGE WITHIN THE BLADDER.
[2018-02-23] MEDS ORDERED: HYDROcodone/APAP 5-325MG 1 EACH TAB PO PRN (13:13)
[2018-02-23] MEDS: ALBUMIN HUMAN 25% 50 ML in EMPTY BAG 1 BAG IVPB SCH ×2 (13:19→15:26)
[2018-02-23] MEDS: SODIUM BICARBONATE TAB 650 MG TAB PO SCH ×2 (13:28→22:33)
[2018-02-23] MEDS: HYDROmorphone 1 MG/ML 1 ML SYRINGE IVP PRN (13:49)
[2018-02-23 16:37] LABS: Glucose,Whole Blood 188 mg/dL (75-99)
--- NOTE | 2018-02-23 18:07 | P.CONS ---
History of Present Illness - Reason for Consult Consult date: 02/23/18 Metastatic cancer Requesting physician: Agnieszka Oreilly - Chief Complaint Increased weakness - History of Present Illness Mrs. Lara is a very pleasant 77-year-old female with a remote history of breast cancer, follows with Dr. Asencio, more recently with being evaluated for microcytic anemia, thrombocytosis and leukocytosis, found to have iron deficiency, here for increasing lethargy from ECF. She was recently seen by Dr. Asencio on 01/01/18 for further evaluation of microcytic anemia. She had a cardiac bypass surgery on 07/2017, with her hemoglobin prior to that being 11.5 with an MCV of 76.4, normal WBC and platelets. Post surgery, hemoglobin dropped to 6.4 on 07/26/17, and was up to 8.5 on . She was on oral iron supplements and was starting to lose weight since March 2017, about 20 pounds. She was referred to GI at that point and was started on Feraheme. She was on aspirin and Plavix since her cardiac surgery, and GI workup was held until she was able to be off of her Plavix, after 07/2018. On 02/06/18 she was hospitalized here for increasing weakness. Imaging with CT of the chest and abdomen did reveal lung nodules and liver nodules concerning for metastatic disease. She underwent liver lesion biopsy on 02/14/18 and was discharged on to subacute rehab. Pathology did reveal metastatic carcinoma, urothelial primary. She was admitted yesterday on 02/22/18 for increasing weakness and found to have an acute kidney injury with a creatinine of 2.3 from a baseline of 1. Currently she is very sleepy. This morning she had mentioned to her family that she is tired and wants to give up. She is not very interactive with me. I did meet with her family however and she has been normal according to the home up until December 2017 when she started to have increasing weakness and found to have the worsening anemia again from iron deficiency. She does have baseline depression and that seems to have worsened over the past 2 or 3 weeks. Her performance status has been poor over the last couple weeks as well, ECOG 2. She was golfing back in December however. Review of Systems All systems: negative Constitutional: Reports as per HPI Past Medical History Past Medical History: Coronary Artery Disease (CAD), Cancer, CVA/TIA, Diabetes Mellitus, Hyperlipidemia, Hypertension Additional Past Medical History / Comment(s): Coronary artery disease, Hx TIA, hypertension, hyperlipidemia, lymphedema of the left upper extremity related to a previous breast surgery, Bilateral breast cancer with lt mastectomy., Radiation Right Breast., low iron- has received iron transfusions., pt had CABG with repair of Mitral Valve (July 2017). History of Any Multi-Drug Resistant Organisms: None Reported Past Surgical History: Breast Surgery, Cholecystectomy, Coronary Bypass/CABG Additional Past Surgical History / Comment(s): lt mastectomy with reconstruction with abdominal flap, carotid endarterectomy, Triple CABG with repair Mitral Valve (July 2017) Past Anesthesia/Blood Transfusion Reactions: No Reported Reaction Additional Past Anesthesia/Blood Transfusion Reaction / Comm: . Past Psychological History: No Psychological Hx Reported Smoking Status: Former smoker Past Alcohol Use History: Occasional Additional Past Alcohol Use History / Comment(s): smoked 15 years, 2 ppd ,quit 1987. Past Drug Use History: None Reported - Past Family History Father Family Medical History: Cancer Additional Family Medical History / Comment(s): colon cancer Daughter(s) Family Medical History: Cancer Additional Family Medical History / Comment(s): ovarian cancer Sister(s) Family Medical History: Coronary Artery Disease (CAD) Brother(s) Family Medical History: Coronary Artery Disease (CAD) Medications and Allergies Home Medications Medication Instructions Recorded Confirmed Type Cholecalciferol (Vitamin D3) 2,000 unit PO HS 07/05/17 02/22/18 History [Vitamin D3] Clopidogrel [Plavix] 75 mg PO HS 01/21/18 02/22/18 History Ferrous Sulfate [Iron] 325 mg PO HS 01/21/18 02/22/18 History Carvedilol [Coreg] 3.125 mg PO DAILY 02/05/18 02/22/18 History Pravastatin Sodium [Pravachol] 30 mg PO HS 02/05/18 02/22/18 History Amino Acids/Protein Hydrolys 30 ml PO DAILY 02/22/18 02/22/18 History [Pro-Stat Supplement] Bisacodyl [Dulcolax] 10 mg RECTAL DAILY PRN 02/22/18 02/22/18 History Furosemide [Lasix] 40 mg PO DIRECTED 02/22/18 02/22/18 History Chari-Tussin Dm 10 ml PO BID 02/22/18 02/22/18 History INSULIN LISPRO (HumaLOG) [humaLOG] See Protocol SQ ACHS 02/22/18 02/22/18 History Lidocaine 4% Cream [Lmx 4] 1 applic TOPICAL TID 02/22/18 02/22/18 History Na Phos,M-B/Na Phos,Di-Ba [Fleet 133 ml RECTAL DAILY PRN 02/22/18 02/22/18 History Adult] Allergies Allergy/AdvReac Type Severity Reaction Status Date / Time lisinopril Allergy Severe Swelling Verified 02/22/18 14:46 rosuvastatin [From Crestor] AdvReac Severe muscle Verified 02/22/18 14:46 cramping/jt pain Sulfa (Sulfonamide AdvReac headache Verified 02/22/18 14:46 Antibiotics) Physical Exam Vitals: Vital Signs Temp Pulse Pulse Resp BP BP Pulse Ox 02/23/18 15:32 82 18 02/23/18 12:38 97.6 F 82 18 90/64 94 L 02/23/18 12:37 76 18 02/23/18 10:47 97.0 F L 76 18 91/55 92 L 02/23/18 10:18 76 18 02/23/18 04:00 75 18 149/77 95 02/23/18 00:00 97.8 F 75 18 132/55 96 02/22/18 20:00 97.1 F L 80 18 137/77 94 L 02/22/18 19:50 98.4 F 88 18 109/53 95 02/22/18 19:13 97.1 F L 67 18 122/58 94 L 02/22/18 18:39 98.2 F 86 18 134/57 97 Intake and Output 02/23/18 02/23/18 02/23/18 06:59 14:59 22:59 Intake Total 120 410 Output Total 0 175 Balance 120 235 Intake: Intake, IV Titration 290 Amount Sodium Chloride 0.9% 1, 240 000 ml @ 75 mls/hr IV . [id number] [facility] Rx#:[id number] cefTRIAXone 1,000 mg In 50 Sodium Chloride 0.9% 50 ml @ 100 mls/hr IVPB Q24HR [facility] Rx#:[id number] Oral 120 120 Output: Urine 0 175 Other: Voiding Method Bedpan Bedpan Bedpan Diaper Diaper Diaper Incontinent Incontinent Incontinent # Voids 1 Weight 45.359 kg 45.359 kg General: In no acute distress. Sleeping comfortably. HEENT: Mucosa moist. Neck: Neck supple. Lymph: No cervical/supraclavicular LAD. Lungs: CTA-B. Heart: RRR. No LE edema. Abdomen: Soft, nontender. MSK: Generalized weakness. Neuro: Sleeping and difficult to arouse. Oriented when arousable however. Skin: No jaundice or rash. Psych: Difficult to assess due to drowsiness. Results CBC & Chem 7: 02/23/18 05:48 02/23/18 05:48 Labs: Abnormal Lab Results - Last 24 Hours (Table) 02/22/18 02/23/18 02/23/18 Range/Units 22:15 05:48 05:48 WBC 18.5 H (3.8-10.6) k/uL Hgb 10.8 L (11.4-16.0) gm/dL MCHC 28.8 L (31.0-37.0) g/dL RDW 22.1 H (11.5-15.5) % Neutrophils # 16.6 H (1.3-7.7) k/uL Sodium 136 L (137-145) mmol/L Chloride 111 H (98-107) mmol/L Carbon Dioxide 14 L (22-30) mmol/L BUN 54 H (7-17) mg/dL Creatinine 2.53 H (0.52-1.04) mg/dL Glucose 136 H (74-99) mg/dL POC Glucose (mg/dL) (75-99) mg/dL Plasma Lactic Acid Ahmet 2.1 H* (0.7-2.0) mmol/L Calcium 7.2 L (8.4-10.2) mg/dL AST 114 H (14-36) U/L ALT 63 H (9-52) U/L Alkaline Phosphatase 326 H (38-126) U/L Total Protein 4.4 L (6.3-8.2) g/dL Albumin 2.0 L (3.5-5.0) g/dL 02/23/18 02/23/18 Range/Units 05:56 11:52 WBC (3.8-10.6) k/uL Hgb (11.4-16.0) gm/dL MCHC (31.0-37.0) g/dL RDW (11.5-15.5) % Neutrophils # (1.3-7.7) k/uL Sodium (137-145) mmol/L Chloride (98-107) mmol/L Carbon Dioxide (22-30) mmol/L BUN (7-17) mg/dL Creatinine (0.52-1.04) mg/dL Glucose (74-99) mg/dL POC Glucose (mg/dL) 162 H 180 H (75-99) mg/dL Plasma Lactic Acid Ahmet (0.7-2.0) mmol/L Calcium (8.4-10.2) mg/dL AST (14-36) U/L ALT (9-52) U/L Alkaline Phosphatase (38-126) U/L Total Protein (6.3-8.2) g/dL Albumin (3.5-5.0) g/dL Chest x-ray: report reviewed US - abdomen: report reviewed Assessment and Plan Assessment: 1. Metastatic urothelial carcinoma 2. BRANDIE 3. Depression 4. Iron deficiency anemia 5. Mild transaminitis due to liver met's Plan: Ms. Lara is a very pleasant 77-year-old female with a remote history of breast cancer, here for increased lethargy. She was recently seen by Dr. Asencio for further evaluation of microcytic anemia, iron deficiency anemia. During her workup and treatment of this she was hospitalized earlier this month for increasing weakness, found to have diffuse pulmonary and liver metastases. She did undergo biopsy prior to discharge on 02/14/18 of one of her liver lesions and was discharged to subacute rehab. Brought back for increasing weakness, found to have acute kidney injury. Her pathology did reveal metastatic carcinoma consistent with urothelial primary. Patient is very sleepy and difficult to arouse. I did speak with her and daughter at bedside regarding her condition and the pathology results. Currently with her poor performance status she's not a candidate for any active treatment. She has been more depressed according to the nurse since this morning in giving up according to her family, not wanting any more treatment. I would recommend having behavioral health assess her ability to make decisions about her treatment as well as determine if her depression is controlled at this point. If her performance status starts to improve in her overall condition starts to improve and she is interested in palliative treatment, she might be a candidate for single agent Gemzar versus immunotherapy. Advised to monitor her over the next couple days and we can reassess on Sunday or Sunday. If she does deteriorate between now and then however comfort care is very reasonable. Her family is understanding of her condition and agreed with the plan. All of their questions were answered.
[2018-02-23 20:09] LABS: Glucose,Whole Blood 159 mg/dL (75-99)
--- NOTE | 2018-02-23 21:44 | PN ---
PROGRESS NOTE DATE OF SERVICE: 02/23/2018 This 77-year-old woman who was admitted with renal failure also had possibly metastatic carcinoma from primary urothelial origin with evidence of liver biopsy. The patient is awaiting hematology/oncology evaluation at this time. Abdominal bladder ultrasound showed right-sided hydronephrosis, small amount of ascites and sludge within the bladder also. The patient being closely monitored. PAST MEDICAL HISTORY: Reviewed. REVIEW OF SYSTEMS: Cardiovascular: No angina or palpitations. Respiration: As mentioned earlier. GI mentioned earlier. : No dysuria. NERVOUS SYSTEM: Diffusely weak. CURRENT MEDICATIONS: Reviewed and include: 1. Dulcolax 10 mg p.r.n. 2. Coreg 3.25 mg p.o. 3. Rocephin 1 g daily. 4. Vitamin D3 2000 daily. 5. Plavix 75 mg q.h.s. 6. Iron sulfate 320 mg q.h.s. 7. Robitussin. 8. Dilaudid 0.25 mg q.4h p.r.n. 9. NovoLog scale. 10.Narcan 0.2 q.2h p.r.n. 11.Pravachol. EXAM: Patient is alert, oriented times three. Pulse is 82. Blood pressure 98/64. Respirations 18, temperature 97.3, pulse ox 98% on room air. HEENT: Conjunctivae normal. Oral mucosa moist. Neck is no jugular venous distention. No carotid bruit. No lymph node enlargement. Cardiovascular: S1, S2 muffled. Respiratory: Breath sounds diminished in the bases. Bilateral scattered rhonchi and crackles. Abdomen is soft, nontender. No mass palpable. Legs: No edema. No swelling. Central nervous system: Diffusely weak. LABS: WBC 18.5 and hemoglobin 10.2, sodium 136, CO2 is 14, creatinine is 2.53. Lactic acid 2.1. UA noted. ASSESSMENT: 1. Renal failure acute possible prerenal acute tubular necrosis diminished p.o. intake. 2. History of metastatic carcinoma of the primary urothelial origin. 3. Possible acute urinary tract infection with sepsis. 4. Elevated lactic acid. 5. Possible multiple lung mass with hepatic mass, possible malignancy status post biopsy. 6. History of bilateral breast cancer. 7. Gait dysfunction. 8. Elevated lactic acid. 9. History of coronary artery disease. 10.Cerebrovascular accident, transient ischemic attack. 11.Diabetes mellitus type 2. 12.Hypertension. 13.Hyperlipidemia. 14. left upper extremity secondary to previous breast surgery. 15.History of coronary artery disease, coronary artery bypass grafting. 16.FULL CODE. RECOMMENDATIONS AND DISCUSSION: In this 77-year-old woman who presented with multiple complex medical issues, we will monitor the patient closely. Continue the current medications, symptomatic treatment. We will initiate empiric antibiotics. Follow the cultures. Otherwise, closely follow with multiple consultants. Monitor IV fluids closely. Prognosis guarded because of multiple complex medical issues as mentioned earlier. Await Hematology/ Oncology input at this time regarding the further course of action. Further recommendations to follow. MMODL / IJN: [id number] / MTDHaley
[2018-02-23] MEDS: CHOLECALCIFEROL 1,000 UNIT TAB PO SCH (22:32)
[2018-02-23] MEDS: CLOPIDOGREL 75 MG TAB PO SCH (22:32)
[2018-02-23] MEDS: PRAVASTATIN SODIUM 20 MG TAB PO SCH (22:33)
[2018-02-23] MEDS: FERROUS SULFATE 325 MG TAB PO SCH (22:33)
[2018-02-24 06:46] LABS: Glucose,Whole Blood 110 mg/dL (75-99)
[2018-02-24] MEDS: INSULIN ASPART 100 UNIT/ML 1 ML 10 ML VIAL SQ SCH ×4 (06:54→22:09)
[2018-02-24 07:13] LABS: Anisocytosis Moderate; Basophils % (A) 0 %; Eosinophils # (A) 0.2 k/uL (0-0.7); Eosinophils % (A) 1 %; HCT 34.6 % (34.0-46.0); HGB 10.3 gm/dL (11.4-16.0); Hypochromasia Marked; Lymphocytes # (A) 1.3 k/uL (1.0-4.8); Lymphocytes % (A) 7 %; MCH 27.6 pg (25.0-35.0); MCHC 29.8 g/dL (31.0-37.0); MCV 92.5 fL (80.0-100.0); Macrocytosis Slight; Mean Platelet Volume 7.4; Monocytes # (A) 0.9 k/uL (0-1.0); Monocytes % (A) 5 %; Neutrophils # (A) 15.9 k/uL (1.3-7.7); Neutrophils % (A) 87 %; Platelet Count 315 k/uL (150-450); RBC 3.74 m/uL (3.80-5.40); RDW 22.3 % (11.5-15.5); WBC 18.4 k/uL (3.8-10.6)
[2018-02-24 07:21] LABS: Albumin 2.2 g/dL (3.5-5.0); Calcium 7.3 mg/dL (8.4-10.2); Potassium 5.1 mmol/L (3.5-5.1); Total Bilirubin 0.8 mg/dL (0.2-1.3); Total Protein 4.7 g/dL (6.3-8.2)
[2018-02-24 08:30] LABS: Hypersegmented Neutrophils Present
[2018-02-24] MEDS: HYDROmorphone 1 MG/ML 1 ML SYRINGE IVP PRN ×2 (10:38→15:18)
[2018-02-24] MEDS ORDERED: FUROSEMIDE 10 MG/ML 4 ML VIAL IV STA (11:07)
--- NOTE | 2018-02-24 11:07 | P.PN ---
Subjective Patient is seen in follow-up for acute kidney injury. Her baseline creatinine is 1. Renal function has been worsening with creatinine up to 2.72 today. She is noted to have urinary retention. Patient is now refusing medications. She wishes to be comfort care. Vital signs are stable. General: The patient appeared well nourished and normally developed. HEENT: Head exam is unremarkable. Neck is without jugular venous distension. LUNGS: Lungs are clear to auscultation and percussion. Breath sounds decreased. HEART: Rate and Rhythm are regular. First and second heart sounds normal. No murmurs, rubs or gallops. ABDOMEN: Abdominal exam reveals normal bowel sounds. Non-tender and non- distended. No evidence of peritonitis. EXTREMITITES: 2+ edema. Objective - Vital Signs Vital signs: Vital Signs Temp 97.6 F 02/24/18 04:00 Pulse 98 02/24/18 04:00 Resp 10 L 02/24/18 04:00 BP 104/51 02/24/18 04:00 Pulse Ox 94 L 02/24/18 04:00 Intake & Output 02/23/18 02/24/18 02/24/18 18:59 06:59 18:59 Intake Total 510 0 Output Total 175 Balance 335 0 Weight 45.359 kg Intake: Intake, IV Titration 390 Amount Albumin Human 25% 50 ml 100 In Empty Bag 1 bag @ 100 mls/hr IVPB Q1H [facility] Rx#: [id number] Sodium Chloride 0.9% 1, 240 000 ml @ 75 mls/hr IV . [id number] [facility] Rx#:[id number] cefTRIAXone 1,000 mg In 50 Sodium Chloride 0.9% 50 ml @ 100 mls/hr IVPB Q24HR [facility] Rx#:[id number] Oral 120 0 Output: Urine 175 Other: Voiding Method Bedpan Bedpan Diaper Diaper Incontinent Incontinent # Voids 1 1 - Labs CBC & Chem 7: 02/24/18 05:46 02/24/18 05:46 Labs: Abnormal Lab Results - Last 24 Hours (Table) 02/23/18 02/23/18 02/23/18 Range/Units 11:52 16:31 20:07 WBC (3.8-10.6) k/uL RBC (3.80-5.40) m/uL Hgb (11.4-16.0) gm/dL MCHC (31.0-37.0) g/dL RDW (11.5-15.5) % Neutrophils # (1.3-7.7) k/uL Chloride (98-107) mmol/L Carbon Dioxide (22-30) mmol/L BUN (7-17) mg/dL Creatinine (0.52-1.04) mg/dL Glucose (74-99) mg/dL POC Glucose (mg/dL) 180 H 188 H 159 H (75-99) mg/dL Calcium (8.4-10.2) mg/dL AST (14-36) U/L ALT (9-52) U/L Alkaline Phosphatase (38-126) U/L Total Protein (6.3-8.2) g/dL Albumin (3.5-5.0) g/dL 02/24/18 02/24/18 02/24/18 Range/Units 05:46 05:46 06:35 WBC 18.4 H (3.8-10.6) k/uL RBC 3.74 L (3.80-5.40) m/uL Hgb 10.3 L (11.4-16.0) gm/dL MCHC 29.8 L (31.0-37.0) g/dL RDW 22.3 H (11.5-15.5) % Neutrophils # 15.9 H (1.3-7.7) k/uL Chloride 113 H (98-107) mmol/L Carbon Dioxide 13 L (22-30) mmol/L BUN 61 H (7-17) mg/dL Creatinine 2.70 H (0.52-1.04) mg/dL Glucose 108 H (74-99) mg/dL POC Glucose (mg/dL) 110 H (75-99) mg/dL Calcium 7.3 L (8.4-10.2) mg/dL AST 97 H (14-36) U/L ALT 54 H (9-52) U/L Alkaline Phosphatase 268 H (38-126) U/L Total Protein 4.7 L (6.3-8.2) g/dL Albumin 2.2 L (3.5-5.0) g/dL Microbiology - Last 24 Hours (Table) 02/22/18 22:15 Blood Culture - Preliminary Blood No Growth after 24 hours Assessment and Plan Plan: Assessment: 1. Acute kidney injury secondary to ATN secondary to diuresis and poor oral intake. Creatinine up to 2.7 today. She is having urinary retention. Right- sided hydronephrosis noted on renal ultrasound. Baseline creatinine is near 1. 2. Lower extremity edema. This is related to hypoalbuminemia. 3. Metabolic acidosis secondary to acute kidney injury and lactic acidosis. 4. Urothelial cancer with metastasis. Oncology following. 5. Hypocalcemia secondary to hypoproteinemia. Corrected calcium is in the normal range. 6. Urinary retention. Plan: Straight cath as needed. Patient refusing medications. She wishes to be comfort care only. I will give her a dose of IV Lasix today if she is agreeable. Hospice consult pending.
[2018-02-24 11:48] LABS: Glucose,Whole Blood 115 mg/dL (75-99)
[2018-02-24] MEDS: guaiFENesin-Coden 100-10MG/5ML 10 ML CUP PO SCH ×2 (13:11→21:58)
[2018-02-24] MEDS: LIDOCAINE 2% GEL 30 ML TUBE TOPICAL SCH ×3 (13:11→22:09)
[2018-02-24] MEDS: CARVEDILOL 3.125 MG TAB PO SCH (13:11)
[2018-02-24 16:57] LABS: Glucose,Whole Blood 107 mg/dL (75-99)
[2018-02-24] MEDS: SODIUM BICARBONATE TAB 650 MG TAB PO SCH ×3 (17:29→23:48)
--- NOTE | 2018-02-24 20:15 | PN ---
PROGRESS NOTE DATE OF SERVICE: 02/24/2018 DATE OF SERVICE: This 77-year-old woman was admitted with renal failure also had recently diagnosed biopsy of urothelial malignancy to METS to the liver. The patient also had multiple also. Patient has history of bilateral breast cancer also. Patient seen by Hematology/Oncology today. She is not a candidate for any treatment because of poor performance status and family was leaning towards comfort measures and hospice at this time. The patient closely monitored. PAST MEDICAL HISTORY: Reviewed. REVIEW OF SYSTEMS: CARDIOVASCULAR: No angina or palpitations. RESPIRATION: As mentioned earlier. GI as mentioned earlier. : As mentioned earlier. CURRENT MEDICATIONS ARE: Reviewed and include: 1. Dulcolax 10 mg daily. 2. Coreg 3.25 mg daily. 3. Rocephin 1 g daily. 4. Vitamin D2 2000 daily. 5. Plavix 75 mg p.o. q.h.s. 6. Iron sulfate 320 mg daily. 7. Robitussin. 8. Dilaudid. 10.Narcan. PHYSICAL EXAMINATION: The patient is alert, oriented x3. Pulse is 98, blood pressure 140/51. Respirations ntd. Temperature is 97.6, pulse ox 94% on room air. HEENT: Oral mucosa moist. Neck is no jugular venous distention. No carotid bruit. No lymph node enlargement. Cardiovascular system: S1, S2 muffled. Respirations: Breath sounds diminished in the bases. Bilateral scattered rhonchi and crackles. ABDOMEN: Soft. Hepatomegaly present. Irregular diffuse thickening. Minimal abdominal distention. Legs: Bilateral leg edema. Nervous system: Diffusely weak. Skin as mentioned earlier. LABS: WBC 18.8, hemoglobin is 10.3. Creatinine is 2.70. AST/ALT noted. ASSESSMENT: 1. Renal failure, acute, possible prerenal acute tubular necrosis, diminished p.o. intake. 2. 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 3. Acute urinary tract infection with sepsis. 4. Elevated lactic acid. 5. Possible multiple lung masses with hepatic mass or possibly malignancy status post biopsy. 6. History of bilateral breast cancer. 7. History of gait dysfunction. 8. Elevated lactic acid. 9. History of coronary artery disease. 10.History of cerebrovascular accident, transient ischemic attack. 11.Diabetes mellitus type 2. 12.Hypertension. 13.Hyperlipidemia. 14.Edema of the left upper extremity secondary to previous surgery. 15.History of coronary artery disease, coronary artery bypass grafting. 16.NO CODE, NO CPR, NO VENT. RECOMMENDATIONS AND DISCUSSION: Recommend to continue current medications, management. Symptomatic treatment. Otherwise, at this time, I had a detailed discussion with the at this time, they would like to proceed with comfort measures. I would recommend social Work Case Management evaluation and possibly provide a hospice information and as well as consult also. Overall prognosis extremely guarded because of multiple complex medical issues. The patient is not a candidate for any chemotherapy because of poor performance status which is not improving over the past few weeks per Hematology/Oncology. See orders for details. The family has also opted for NO CODE, NO CPR, NO VENT. Please note. The prognosis guarded. MMODL / IJN: [id number] / MTDD
[2018-02-24 21:04] LABS: Glucose,Whole Blood 101 mg/dL (75-99)
[2018-02-24] MEDS: CLOPIDOGREL 75 MG TAB PO SCH (21:58)
[2018-02-24] MEDS: FERROUS SULFATE 325 MG TAB PO SCH (21:58)
[2018-02-24] MEDS: CHOLECALCIFEROL 1,000 UNIT TAB PO SCH (21:58)
[2018-02-24] MEDS: PRAVASTATIN SODIUM 20 MG TAB PO SCH (21:59)
[2018-02-25] MEDS: HYDROmorphone 1 MG/ML 1 ML SYRINGE IVP PRN (03:53)
[2018-02-25 04:11] VITALS: TEMP 97.6
[2018-02-25] MEDS ORDERED: HYDROmorphone 1 MG/ML 1 ML SYRINGE IVP STA (06:07)
[2018-02-25] MEDS: INSULIN ASPART 100 UNIT/ML 1 ML 10 ML VIAL SQ SCH ×2 (06:09→11:50)
[2018-02-25 06:20] LABS: Glucose,Whole Blood 92 mg/dL (75-99)
[2018-02-25 07:24] LABS: Anisocytosis Moderate; Basophils % (A) 0 %; Eosinophils # (A) 0.1 k/uL (0-0.7); Eosinophils % (A) 0 %; HGB 10.8 gm/dL (11.4-16.0); Hypochromasia Marked; Lymphocytes # (A) 0.8 k/uL (1.0-4.8); Lymphocytes % (A) 4 %; MCH 27.2 pg (25.0-35.0); MCHC 28.5 g/dL (31.0-37.0); MCV 95.4 fL (80.0-100.0); Macrocytosis Moderate; Mean Platelet Volume 6.8; Monocytes # (A) 0.7 k/uL (0-1.0); Monocytes % (A) 4 %; Neutrophils # (A) 16.6 k/uL (1.3-7.7); Neutrophils % (A) 91 %; Platelet Count 333 k/uL (150-450); RBC 3.98 m/uL (3.80-5.40); RDW 22.9 % (11.5-15.5); WBC 18.2 k/uL (3.8-10.6)
[2018-02-25 07:25] LABS: Albumin 2.2 g/dL (3.5-5.0); Calcium 7.1 mg/dL (8.4-10.2); Total Bilirubin 0.8 mg/dL (0.2-1.3); Total Protein 4.6 g/dL (6.3-8.2)
[2018-02-25] MEDS: SODIUM BICARBONATE TAB 650 MG TAB PO SCH (10:16)
[2018-02-25] MEDS: CARVEDILOL 3.125 MG TAB PO SCH (10:16)
[2018-02-25] MEDS: guaiFENesin-Coden 100-10MG/5ML 10 ML CUP PO SCH (10:16)
[2018-02-25] MEDS: LIDOCAINE 2% GEL 30 ML TUBE TOPICAL SCH (10:16)
[2018-02-25 10:23] VITALS: RESP 18
--- NOTE | 2018-02-25 10:32 | P.PN ---
Subjective Patient is seen in follow-up for acute kidney injury. Her baseline creatinine is 1. Renal function has been worsening with creatinine up to 3.17 today. She is noted to have urinary retention. Patient is now refusing medications. She wishes to be comfort care. Hospice has been consulted. She is more lethargic today. Vital signs are stable. General: The patient appeared well nourished and normally developed. HEENT: Head exam is unremarkable. Neck is without jugular venous distension. LUNGS: Lungs are clear to auscultation and percussion. Breath sounds decreased. HEART: Rate and Rhythm are regular. First and second heart sounds normal. No murmurs, rubs or gallops. ABDOMEN: Abdominal exam reveals normal bowel sounds. Non-tender and non- distended. No evidence of peritonitis. EXTREMITITES: 2+ edema. Objective - Vital Signs Vital signs: Vital Signs Temp 97.6 F 02/25/18 04:00 Pulse 94 02/25/18 08:00 Resp 18 02/25/18 08:00 BP 107/60 02/25/18 08:00 Pulse Ox 92 L 02/25/18 08:00 Intake & Output 02/24/18 02/25/18 02/25/18 18:59 06:59 18:59 Intake Total 0 Output Total 200 Balance -200 0 Weight 56.5 kg Intake: Oral 0 Output: Urine 200 Other: Voiding Method Indwelling Catheter Indwelling Catheter Indwelling Catheter # Voids 1 1 - Labs CBC & Chem 7: 02/25/18 06:08 02/25/18 06:08 Labs: Abnormal Lab Results - Last 24 Hours (Table) 02/24/18 02/24/18 02/24/18 Range/Units 11:47 16:49 21:03 WBC (3.8-10.6) k/uL Hgb (11.4-16.0) gm/dL MCHC (31.0-37.0) g/dL RDW (11.5-15.5) % Neutrophils # (1.3-7.7) k/uL Lymphocytes # (1.0-4.8) k/uL Chloride (98-107) mmol/L Carbon Dioxide (22-30) mmol/L BUN (7-17) mg/dL Creatinine (0.52-1.04) mg/dL POC Glucose (mg/dL) 115 H 107 H 101 H (75-99) mg/dL Calcium (8.4-10.2) mg/dL AST (14-36) U/L ALT (9-52) U/L Alkaline Phosphatase (38-126) U/L Total Protein (6.3-8.2) g/dL Albumin (3.5-5.0) g/dL 02/25/18 02/25/18 Range/Units 06:08 06:08 WBC 18.2 H (3.8-10.6) k/uL Hgb 10.8 L (11.4-16.0) gm/dL MCHC 28.5 L (31.0-37.0) g/dL RDW 22.9 H (11.5-15.5) % Neutrophils # 16.6 H (1.3-7.7) k/uL Lymphocytes # 0.8 L (1.0-4.8) k/uL Chloride 115 H (98-107) mmol/L Carbon Dioxide 12 L (22-30) mmol/L BUN 69 H (7-17) mg/dL Creatinine 3.17 H (0.52-1.04) mg/dL POC Glucose (mg/dL) (75-99) mg/dL Calcium 7.1 L (8.4-10.2) mg/dL AST 98 H (14-36) U/L ALT 58 H (9-52) U/L Alkaline Phosphatase 288 H (38-126) U/L Total Protein 4.6 L (6.3-8.2) g/dL Albumin 2.2 L (3.5-5.0) g/dL Microbiology - Last 24 Hours (Table) 02/22/18 22:15 Blood Culture - Preliminary Blood No Growth after 48 hours Assessment and Plan Plan: Assessment: 1. Acute kidney injury secondary to ATN secondary to diuresis and poor oral intake. Creatinine up to 3.17 today. She is having urinary retention. Right- sided hydronephrosis noted on renal ultrasound. Baseline creatinine is near 1. 2. Lower extremity edema. This is related to hypoalbuminemia. 3. Metabolic acidosis secondary to acute kidney injury and lactic acidosis. 4. Urothelial cancer with metastasis. Oncology following. 5. Hypocalcemia secondary to hypoproteinemia. Corrected calcium is in the normal range. 6. Urinary retention. Plan: Patient wishes to be comfort care. Hospice has been consulted. We'll sign off at this time.
[2018-02-25] MEDS ORDERED: FUROSEMIDE 10 MG/ML 4 ML VIAL IV SCH (10:45)
[2018-02-25 11:34] LABS: Glucose,Whole Blood 106 mg/dL (75-99)
[2018-02-25 13:35] VITALS: BP 122/74; PULSE 90
--- NOTE | 2018-02-28 15:00 | CDI ---
Last Revision, April 2017 Documentation Clarification Form Date: 02/28/2018 2:44:00 PM From: Marilynn Gross Phone: If question, call [employer] Sales Associate-Patria Kimbrough at [phone] Admit Date: 02/22/2018 4:11:00 PM Patient Name: Breana Lara Visit Number: [id number] Discharge Date: 02/25/18 ATTENTION: The Clinical Documentation Specialists (CDI) and [facility] Coding Staff appreciate your assistance in clarifying documentation. Please respond to the clarification below the line at the bottom and electronically sign. The CDI & [facility] Coding staff will review the response and follow-up if needed. Please note: Queries are made part of the Legal Health Record. If you have any questions, please contact the author of this message via ITS. Agnieszka Nicholson MD Malnutrition has been documented in _ER__ . History/Risk Factors: Hx of malignancy Clinical Indicators: decreased caloric intake < 50% of est. needs with poor appetite, 14% involuntary weight loss in less than 1 month, intake remains < 50 % need Labs: Albumin 2.0 to 2.2, Total Protein 4.4 to 4.7 Current BMI: 18.3, Underweight Fluid accumulation: Lower extremity edema Treatment: Glucerna Dietary Consult: Nutrition Consult dated 02/23/18 Lab monitoring: Albumin, Protein In your professional opinion, can you please clarify if these findings signify one of the following conditions? Mild Protein-Calorie Malnutrition Moderate Protein-Calorie Malnutrition Severe Protein-Calorie Malnutrition Malnutrition following GI surgery Malnutrition, Unspecified Other condition, please specify Unable to determine Mild Protein-Calorie Malnutrition MTDD
== END 2018-02-25 14:58 | disposition hospice, home (50) | DRG 683 ==
LOC: EC 13:16 → 3SCARD 16:11
PROVIDERS: ADMIT Hospitalist; ATTEND Hospitalist
DX: N17.0 Acute kidney failure with tubular necrosis (principal); E87.2 Acidosis; C78.7 Secondary malignant neoplasm of liver and intrahepatic bile duct; C78.02 Secondary malignant neoplasm of left lung; C78.01 Secondary malignant neoplasm of right lung; E44.1 Mild protein-calorie malnutrition; Z68.1 Body mass index [BMI] 19.9 or less, adult; E78.5 Hyperlipidemia, unspecified; E86.0 Dehydration; F32.9 Major depressive disorder, single episode, unspecified; E83.51 Hypocalcemia; I10 Essential (primary) hypertension; I25.10 Atherosclerotic heart disease of native coronary artery without angina pectoris; E11.9 Type 2 diabetes mellitus without complications; R26.9 Unspecified abnormalities of gait and mobility; R33.9 Retention of urine, unspecified; N13.30 Unspecified hydronephrosis; E77.8 Other disorders of glycoprotein metabolism; C80.1 Malignant (primary) neoplasm, unspecified; I97.2 Postmastectomy lymphedema syndrome; R60.0 Localized edema; E88.09 Other disorders of plasma-protein metabolism, not elsewhere classified; D50.9 Iron deficiency anemia, unspecified; Z66 Do not resuscitate; Z51.5 Encounter for palliative care; Z80.0 Family history of malignant neoplasm of digestive organs; Z80.41 Family history of malignant neoplasm of ovary; Z82.49 Family history of ischemic heart disease and other diseases of the circulatory system; Z85.3 Personal history of malignant neoplasm of breast; Z86.73 Personal history of transient ischemic attack (TIA), and cerebral infarction without residual deficits; Z87.891 Personal history of nicotine dependence; Z90.12 Acquired absence of left breast and nipple; Z92.3 Personal history of irradiation; Z95.1 Presence of aortocoronary bypass graft; Z90.49 Acquired absence of other specified parts of digestive tract; Z79.4 Long term (current) use of insulin; Z79.02 Long term (current) use of antithrombotics/antiplatelets; Z79.899 Other long term (current) drug therapy; Z88.8 Allergy status to other drugs, medicaments and biological substances; Z88.2 Allergy status to sulfonamides; Y83.4 Other reconstructive surgery as the cause of abnormal reaction of the patient, or of later complication, without mention of misadventure at the time of the procedure
CPT/HCPCS: 36415; 71046; 76770; 80053; 81001; 83605; 83735; 85025; 85610; 85730; 87040; 93005; 99285

== ENCOUNTER 2018-02-25 13:09 | Inpatient (IN) | payer MEDICAID ==
[2018-02-25] MEDS ORDERED: LORazepam 2 MG/ML INJ IV PRN (13:47)
[2018-02-25] MEDS ORDERED: ONDANSETRON 4 MG/2 ML VIAL IVP PRN (13:47)
[2018-02-25] MEDS ORDERED: ACETAMINOPHEN SUPPOSITORY 650 MG SUPP RECTAL PRN (13:47)
[2018-02-25] MEDS ORDERED: SCOPOLAMINE 1.5MG/72HR PATCH TRANSDERM PRN (13:47)
[2018-02-25] MEDS ORDERED: BISACODYL 10 MG SUPP RECTAL PRN (13:52)
[2018-02-25] MEDS: HYDROmorphone 1 MG/ML 1 ML SYRINGE IVP PRN ×2 (15:36→22:52)
[2018-02-25 17:01] VITALS: RESP 12
--- NOTE | 2018-02-25 21:10 | PN ---
PROGRESS NOTE DATE OF SERVICE: 02/25/2018 This 77-year-old woman who was admitted with renal failure also had metastatic carcinoma with the primary of urothelial in origin. The patient has got a very poor focal capacity and currently not able to get any chemotherapy. The patient also. The patient discussed with the family and the family is deciding on comfort measures at this time. PAST MEDICAL HISTORY: Reviewed. REVIEW OF SYSTEMS: The patient is stuporous. CURRENT MEDICATIONS: Reviewed and include the medications are: Tylenol, Dulcolax, Dilaudid, Ativan, Zofran. PHYSICAL EXAM: Patient is conscious, but the patient is stuporous. Pulse 94, blood pressure 107/60, respiration 18, temperature 97.2, pulse ox 98% on room air. HEENT: Conjunctivae normal. Oral mucosa is moist. Neck is no jugular venous distention. No carotid bruit. No lymph node enlargement. CARDIOVASCULAR: S1, S2 muffled. RESPIRATORY: Breath sounds diminished in the bases. A few rhonchi, no crackles. ABDOMEN: Soft, nontender. No mass palpable. LEGS: No edema. NERVOUS SYSTEM: Higher functions as mentioned. Moves all four limbs. No focal motor deficits. LYMPHATIC: No lymphadenopathy in the neck, axillae, groin. LABS: Reviewed; WBC 18.4, hemoglobin 10.8, creatinine 3.17. LFTs are noted. ASSESSMENT: 1. Renal failure acute on chronic possibly prerenal acute tubular necrosis, diminished p.o. intake. 2. Metastatic carcinoma, primary urothelial origin with possibly lung and liver, recently diagnosed. 3. Acute urinary tract infection with sepsis. 4. Elevated lactic acid. 5. Possible multiple lung mass with hepatic mass or possible malignancy status post biopsy. 6. History of bilateral breast cancer. 7. History of gait dysfunction. 8. Elevated lactic acid. 9. History of coronary artery disease. 10.History of cerebrovascular accident, transient ischemic attack. 11.Diabetes mellitus type 2. 12.Hypertension. 13.Hyperlipidemia. 14.Edema of the left upper extremity secondary to previous surgery. 15.History of coronary artery disease, CABG. 16.NO CODE, NO CPR, NO VENT. RECOMMENDATIONS AND DISCUSSION: In this 77-year-old woman who presented with multiple complex medical issues, we will monitor the patient closely. Continue the current medications. I had a detailed discussion with the family at this time. The family wishes to continue with hospice care because of multiple extensive complications and risk to the patient, which hematology agrees with family wishes. So we will continue to monitor and hospice will be consulted and transition the patient to hospice at this time. Prognosis guarded. Further recommendations to follow. ERON / LEESAN: [id number] / MTDD
== END 2018-02-26 13:04 | disposition expired | DRG 951 ==
LOC: 3SCARD 15:03
PROVIDERS: ADMIT Hospitalist; ATTEND Hospitalist
DX: Z51.5 Encounter for palliative care (principal); N17.0 Acute kidney failure with tubular necrosis; A41.9 Sepsis, unspecified organism; N39.0 Urinary tract infection, site not specified; C78.7 Secondary malignant neoplasm of liver and intrahepatic bile duct; C78.00 Secondary malignant neoplasm of unspecified lung; C67.9 Malignant neoplasm of bladder, unspecified; Z85.3 Personal history of malignant neoplasm of breast; R26.9 Unspecified abnormalities of gait and mobility; I25.10 Atherosclerotic heart disease of native coronary artery without angina pectoris; Z86.73 Personal history of transient ischemic attack (TIA), and cerebral infarction without residual deficits; E11.22 Type 2 diabetes mellitus with diabetic chronic kidney disease; I12.9 Hypertensive chronic kidney disease with stage 1 through stage 4 chronic kidney disease, or unspecified chronic kidney disease; E78.5 Hyperlipidemia, unspecified; N18.9 Chronic kidney disease, unspecified; Z95.1 Presence of aortocoronary bypass graft; Z79.02 Long term (current) use of antithrombotics/antiplatelets; Z79.4 Long term (current) use of insulin; Z79.899 Other long term (current) drug therapy; Z88.2 Allergy status to sulfonamides; Z88.8 Allergy status to other drugs, medicaments and biological substances